=== PATIENT | male | born 1975 | race Two or more races ===

== ENCOUNTER 2022-02-13 12:22 | Outpatient (REF) | payer OTHER, SELFPAY ==
--- NOTE | 2022-02-13 16:51 | MHC.AU.HFU ---
Hearing Instrument Follow-Up- Binaural Date of Visit: 02/13/22 Right Ear: Meaghan Simmons V50-SP BTE, [id number] Repair Warranty: 07/09/2018 Loss and Damage Warranty: 07/09/2018 Battery Size: 13 Type of Mold: skeleton mold Dispensed By: [facility] Date of Fittin05/16/2016 Left Ear: Meaghan Simmons V50-SP BTE, [id number] Repair Warranty: 07/09/2018 Loss and Damage Warranty: 07/09/2018 Battery Size: 13 Type of Mold: skeleton mold Dispensed By: [facility] Date of Fittin05/16/2016 Follow-Up Summary: The patient is here for an updated hearing evaluation and hearing aid check. His last audiogram is from 2017. He is also eligible for new hearing aids. Today's audiogram reveals a significant change in hearing, with a new asymmetry (right ear worse). The patient also reports constant tinnitus in the right ear that has gotten worse over the past year. I have recommended that the patient obtains a referral to ENT from his PCP to be medically evaluated. Once he is evaluated and obtains medical clearance from the ENT, then he can set up a hearing aid consult appointment here for us to discuss new hearing aids. Patient is in agreement. I did re-program the patient's current hearing aids to today's audiogram with NAL-NL2 programming strategy. 100% target gain right aid. 110% target gain left aid- per patient preference. I re-ran the feedback digital strategy manager and reviewed use of volume control. I also re-tubed right and left ear molds as they were hardened. I counseled the patient to continue use of the left hearing aid, and explained realistically the right hearing aid will not provide useful speech information but perhaps some sound awareness. The patient did like hearing with both hearing aids in office. Diagnosis Code(s): Primary Diagnosis: H90.3 Bilateral Sensorineural Hearing Loss Signature: Provider: Kevin Arizmendi, [facility]
== END 2022-02-13 12:23 | disposition home or self-care (01) ==
LOC: HO.SH 12:22
PROVIDERS: Visit Provider Internal Medicine
DX: Z01.118 Encounter for examination of ears and hearing with other abnormal findings (principal); Z46.1 Encounter for fitting and adjustment of hearing aid; H90.3 Sensorineural hearing loss, bilateral
CPT/HCPCS: 92557; 92567; 92593; V5020; V5266

== ENCOUNTER 2022-02-13 14:22 | Outpatient (REF) | payer OTHER, SELFPAY ==
--- NOTE | ~2022-02-13 | XR_ITS ---
EXAMINATION: XR KNEES BILATERAL XR ANKLE, RIGHT CLINICAL INFORMATION: Pain. COMPARISON: Previous left knee x-ray September 2012. Right lower leg x-ray December 2014. TECHNIQUE: 4 views of each knee. 3 views of the right ankle. FINDINGS: Right knee: Bone alignment is normal. No fracture or dislocation. Normal joint spaces. No joint effusion. Left knee: Bone alignment is normal. No fracture or dislocation. Postsurgical changes from ACL repair. Small osteophytes at the patellofemoral joint. No joint effusion. Right ankle: Bone alignment is normal. No fracture or dislocation. Focal cortical thickening along the distal lateral tibial shaft. 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 The ankle mortise is normal. Soft tissues are normal. There is a small plantar calcaneal spur. XR/XR knee RT 4V IMPRESSION: Right knee: Unremarkable exam. Left knee: Post ACL repair changes. Mild arthritis at the patellofemoral joint. 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 Normal ankle joint.
--- NOTE | ~2022-02-13 | XR_ITS ---
EXAMINATION: XR KNEES BILATERAL XR ANKLE, RIGHT CLINICAL INFORMATION: Pain. COMPARISON: Previous left knee x-ray September 2012. Right lower leg x-ray December 2014. TECHNIQUE: 4 views of each knee. 3 views of the right ankle. FINDINGS: Right knee: Bone alignment is normal. No fracture or dislocation. Normal joint spaces. No joint effusion. Left knee: Bone alignment is normal. No fracture or dislocation. Postsurgical changes from ACL repair. Small osteophytes at the patellofemoral joint. No joint effusion. Right ankle: Bone alignment is normal. No fracture or dislocation. Focal cortical thickening along the distal lateral tibial shaft. 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 The ankle mortise is normal. Soft tissues are normal. There is a small plantar calcaneal spur. XR/XR knee LT 4V IMPRESSION: Right knee: Unremarkable exam. Left knee: Post ACL repair changes. Mild arthritis at the patellofemoral joint. 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 Normal ankle joint.
--- NOTE | ~2022-02-13 | XR_ITS ---
EXAMINATION: XR KNEES BILATERAL XR ANKLE, RIGHT CLINICAL INFORMATION: Pain. COMPARISON: Previous left knee x-ray September 2012. Right lower leg x-ray December 2014. TECHNIQUE: 4 views of each knee. 3 views of the right ankle. FINDINGS: Right knee: Bone alignment is normal. No fracture or dislocation. Normal joint spaces. No joint effusion. Left knee: Bone alignment is normal. No fracture or dislocation. Postsurgical changes from ACL repair. Small osteophytes at the patellofemoral joint. No joint effusion. Right ankle: Bone alignment is normal. No fracture or dislocation. Focal cortical thickening along the distal lateral tibial shaft. 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 The ankle mortise is normal. Soft tissues are normal. There is a small plantar calcaneal spur. XR/XR ankle RT min 3V IMPRESSION: Right knee: Unremarkable exam. Left knee: Post ACL repair changes. Mild arthritis at the patellofemoral joint. 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 Normal ankle joint.
[2022-02-13 14:42] LABS: MANUAL DIFF FLAG NO
[2022-02-13 15:12] LABS: Basophils Absolute Auto 0.1 X10*3/uL (0.0-0.2); Basophils Percent Auto 0.8 % (0-2); Eosinophils Absolute Auto 0.1 X10*3/uL (0.0-0.4); Eosinophils Percent Auto 1.8 % (0-4); Hematocrit 45.8 % (42.0-52.0); Hemoglobin 15.8 g/dl (14.0-18.0); Imm Gran Abs Auto 0.02 X10*3/uL (0.00-0.03); Imm Gran Pct Auto 0.3 % (0.0-0.4); Lymphocytes Absolute Auto 2.6 X10*3/uL (1.2-4.9); Lymphocytes Percent Auto 38.9 % (20-40); Mean Corpuscular HGB Conc 34.5 g/dl (31.0-36.0); Mean Corpuscular Hemoglobin 32.2 pg (27.0-33.0); Mean Corpuscular Volume 93.5 fL (80.0-98.0); Mean Platelet Volume 10.5 fL (9.4-12.4); Monocytes Absolute Auto 0.6 X10*3/uL (0.1-1.2); Monocytes Percent Auto 9.6 % (2-11); Neutrophils Absolute Auto 3.2 x10*3/uL (2.0-8.3); Neutrophils Percent Auto 48.6 % (45-73); Platelet Count 192 X10*3/uL (160-400); Red Cell Distribution Width 12.9 % (11.0-16.0); White Blood Count 6.7 X10*3/uL (4.8-10.8)
[2022-02-13 15:49] LABS: Erythrocyte Sedimentation Rate 7 MM/HR (0-15)
[2022-02-13 17:07] LABS: Alanine Aminotransferase 117 U/L (0-40); Albumin Level 4.4 g/dL (3.5-5.0); Alkaline Phosphatase 87 U/L (39-117); Anion Gap 13 (12-20); Aspartate Amino Transferase 68 U/L (5-37); Blood Urea Nitrogen 15 mg/dL (9-16); C Reactive Protein 0.35 mg/dL (< or = 0.50); Calcium 9.7 mg/dL (8.4-10.2); Carbon Dioxide 23 mmol/L (22-29); Chloride 106 mmol/L (96-108); Cholesterol 220 mg/dL; Estimated Glomerular Filt Rate > 60; Glucose Fasting 109 mg/dL (60-99); HDL Cholesterol 64 mg/dL; LDL Cholesterol Calculated 125 mg/dl; Potassium 4.2 mmol/L (3.3-5.1); Prostate Specific Antigen 0.42 ng/mL (<0.05-4.0); Sodium 138 mmol/L (135-145); TSH reflex Free T4 2.51 uIU/mL (0.32-4.0); Total Protein 7.5 g/dL (6.5-8.0); Triglycerides 158 mg/dL
[2022-02-13 17:11] LABS: Appearance Urine Clear; Color Urine Dark Yellow; Glucose Urine UA Negative (Negative); Leukocyte Esterase Urine Negative (Negative); Nitrite Urine Negative (Negative); Specific Gravity - Urine >= 1.030 (1.005-1.025); Urine Blood Negative (Negative); Urine Ketones Trace mg/dL (Negative); Urine Protein Trace mg/dL (Neg-Trace)
== END 2022-02-13 14:23 | disposition home or self-care (01) ==
LOC: HO.XRAY 14:22
PROVIDERS: PCP Internal Medicine; Visit Provider Internal Medicine
DX: Z01.818 Encounter for other preprocedural examination (principal); Z12.5 Encounter for screening for malignant neoplasm of prostate; M25.571 Pain in right ankle and joints of right foot; S83.512S Sprain of anterior cruciate ligament of left knee, sequela; S83.207S Unspecified tear of unspecified meniscus, current injury, left knee, sequela; M25.561 Pain in right knee; R30.0 Dysuria; R35.0 Frequency of micturition; E66.01 Morbid (severe) obesity due to excess calories; Z68.42 Body mass index [BMI] 45.0-49.9, adult; I10 Essential (primary) hypertension; E55.9 Vitamin D deficiency, unspecified
CPT/HCPCS: 36415; 73564; 73610; 80053; 80061; 81003; 82306; 84153; 84443; 85025; 85652; 86140; 99202

== ENCOUNTER 2022-06-27 15:22 | Outpatient (REF) | payer OTHER, SELFPAY ==
[2022-06-27 15:43] LABS: MANUAL DIFF FLAG NO
[2022-06-27 16:27] LABS: Basophils Percent Auto 0.7 % (0-2); Eosinophils Absolute Auto 0.1 X10*3/uL (0.0-0.4); Eosinophils Percent Auto 1.4 % (0-4); Hematocrit 46.2 % (42.0-52.0); Hemoglobin 16.3 g/dl (14.0-18.0); Imm Gran Abs Auto 0.03 X10*3/uL (0.00-0.03); Imm Gran Pct Auto 0.5 % (0.0-0.4); Lymphocytes Absolute Auto 1.7 X10*3/uL (1.2-4.9); Lymphocytes Percent Auto 30.8 % (20-40); Mean Corpuscular HGB Conc 35.3 g/dl (31.0-36.0); Mean Corpuscular Hemoglobin 33.7 pg (27.0-33.0); Mean Corpuscular Volume 95.7 fL (80.0-98.0); Mean Platelet Volume 10.8 fL (9.4-12.4); Monocytes Absolute Auto 0.5 X10*3/uL (0.1-1.2); Monocytes Percent Auto 8.6 % (2-11); Neutrophils Absolute Auto 3.2 x10*3/uL (2.0-8.3); Platelet Count 198 X10*3/uL (160-400); Red Blood Count 4.83 X10*6/uL (4.60-5.80); Red Cell Distribution Width 12.4 % (11.0-16.0); White Blood Count 5.6 X10*3/uL (4.8-10.8)
[2022-06-27 16:34] LABS: Estimated Average Glucose 128 mg/dL; Hemoglobin A1c % 6.1 %
[2022-06-27 16:46] LABS: Alanine Aminotransferase 90 U/L (0-40); Albumin Level 4.3 g/dL (3.5-5.0); Alkaline Phosphatase 79 U/L (39-117); Anion Gap 13 (12-20); Aspartate Amino Transferase 48 U/L (5-37); Bilirubin Total 0.8 mg/dL (0.0-1.0); Blood Urea Nitrogen 15 mg/dL (9-16); Calcium 9.6 mg/dL (8.4-10.2); Carbon Dioxide 25 mmol/L (22-29); Chloride 105 mmol/L (96-108); Cholesterol 243 mg/dL; Estimated Glomerular Filt Rate > 60; Glucose Fasting 138 mg/dL (60-99); HDL Cholesterol 60 mg/dL; LDL Cholesterol Calculated 160 mg/dl; Potassium 4.4 mmol/L (3.3-5.1); Sodium 139 mmol/L (135-145); Total Protein 7.2 g/dL (6.5-8.0); Triglycerides 118 mg/dL
[2022-06-27 16:57] LABS: Appearance Urine Clear; Color Urine Dark Yellow; Glucose Urine UA Negative (Negative); Leukocyte Esterase Urine Negative (Negative); Nitrite Urine Negative (Negative); Specific Gravity - Urine >= 1.030 (1.005-1.025); Urine Blood Negative (Negative); Urine Ketones Trace mg/dL (Negative); Urine Protein Negative (Neg-Trace)
[2022-06-27 17:03] LABS: TSH reflex Free T4 1.07 uIU/mL (0.32-4.0); Vitamin D 25-OH Total 26.1 ng/mL (>30)
== END 2022-06-27 15:23 | disposition home or self-care (01) ==
LOC: HO.LAB 15:22
PROVIDERS: PCP Internal Medicine; Visit Provider Internal Medicine
DX: E55.9 Vitamin D deficiency, unspecified (principal); M67.432 Ganglion, left wrist; E78.00 Pure hypercholesterolemia, unspecified; R73.01 Impaired fasting glucose; R30.0 Dysuria; I10 Essential (primary) hypertension
CPT/HCPCS: 36415; 80053; 80061; 81003; 82306; 83036; 84443; 85025

== ENCOUNTER 2022-10-22 09:05 | Day surgery (SDC) | payer OTHER, SELFPAY ==
[2022-10-20 14:03] VITALS: BMI 44.7
--- NOTE | 2022-10-21 10:48 | HO.ANESPROP2 ---
Documented by User: Larissa Lewis NP 10/21/22 10:49 HPI - Anesthesia Eval Consult details Narrative: 47yo M for Colonoscopy PMF Active Problems Active Problems: All Active Problems Tinnitus of right ear (Acute) Asymmetrical hearing loss (Acute) Mixed hyperlipidemia (Acute) GERD without esophagitis (Acute) Elevated LFTs (Acute) Vitamin D deficiency (Acute) Impaired fasting glucose (Acute) Colon cancer screening (Acute) Encounter for screening colonoscopy (Acute) Ganglion cyst of volar aspect of left wrist (Acute) Right knee pain (Acute) Right ankle pain (Acute) Benign essential hypertension (Acute) Tears of meniscus and ACL of left knee (Acute) Hearing loss, bilateral (Acute) Elevated blood pressure reading without diagnosis of hypertension (Acute) Annual physical exam (Acute) Morbid obesity with BMI of 45.0-49.9, adult (Acute) Smoker (Acute) Past Medical History Medical History Benign essential hypertension Elevated LFTs GERD without esophagitis Hearing loss, bilateral Impaired fasting glucose Mixed hyperlipidemia Morbid obesity with BMI of 45.0-49.9, adult Smoker Tinnitus Vitamin D deficiency Family History Family History Father Epilepsy Heart attack High blood pressure Mother Diabetes Stroke Surgical History Surgical History History of knee surgery (~03/2013) Social History Social History Housing: Apartment Alcohol intake: current Alcohol intake frequency: holidays/special occasions only Patient Tobacco Use Status: Current everyday Tobacco user Cigarettes Per Day: 15 e-Cigarette/Vaping Use: Never Used Second Hand Smoke Exposure: Yes Are you DNR?: No Advance Directives: No Advance Directives Information Provided: Yes service: No Current occupational status: unemployed Cognitive needs: No Hearing needs: Yes Vision needs: Yes Meds Allergies Allergy/AdvReac Type Severity Reaction Status Date / Time No Known Allergies Allergy Verified 07/02/22 14:26 [No Known Allergies*] Exam Exam Date and Time: October 21, 2022 1048 Height,Weight and Vital Signs: Height 5 ft 8 in Weight 133.356 kg Assessment and Plan Assessment Anesthesia Assessment: Chart Reviewed Documented by User: Eden Cabezas MD 10/22/22 10:38 PMFSH Active Problems Active Problems: All Active Problems Tinnitus of right ear (Acute) Asymmetrical hearing loss (Acute) Mixed hyperlipidemia (Acute) GERD without esophagitis (Acute) Elevated LFTs (Acute) Vitamin D deficiency (Acute) Impaired fasting glucose (Acute) Colon cancer screening (Acute) Encounter for screening colonoscopy (Acute) Ganglion cyst of volar aspect of left wrist (Acute) Right knee pain (Acute) Right ankle pain (Acute) Benign essential hypertension (Acute) Tears of meniscus and ACL of left knee (Acute) Hearing loss, bilateral (Acute) Elevated blood pressure reading without diagnosis of hypertension (Acute) Annual physical exam (Acute) Morbid obesity with BMI of 45.0-49.9, adult (Acute) Smoker (Acute) Denies ANDREW but never tested Past Medical History Medical History Benign essential hypertension Elevated LFTs GERD without esophagitis Hearing loss, bilateral Impaired fasting glucose Mixed hyperlipidemia Morbid obesity with BMI of 45.0-49.9, adult Smoker Tinnitus Vitamin D deficiency Family History Family History Father Epilepsy Heart attack High blood pressure Mother Diabetes Stroke Family history of problems with anesthesia: No Surgical History Surgical History History of knee surgery (~03/2013) History of Problems with Anesthesia: No Social History Social History Housing: Apartment Alcohol intake: current Alcohol intake frequency: holidays/special occasions only Patient Tobacco Use Status: Current everyday Tobacco user Cigarettes Per Day: 15 e-Cigarette/Vaping Use: Never Used Second Hand Smoke Exposure: Yes Are you DNR?: No Advance Directives: No Advance Directives Information Provided: Yes service: No Current occupational status: unemployed Cognitive needs: No Hearing needs: Yes Vision needs: Yes Meds Allergies Allergy/AdvReac Type Severity Reaction Status Date / Time No Known Allergies Allergy Verified 07/02/22 14:26 [No Known Allergies*] Exam Height,Weight and Vital Signs: Height 5 ft 8 in Weight 133.356 kg Vital Signs Temp Pulse Resp BP Pulse Ox O2 Del Method 10/22/22 10:19 93 16 10/22/22 09:47 98.3 F 87 20 140/88 H 98 Room Air Airway Mallampati Class: II Neck ROM: Full Loose/Missing/Broken Teeth: Yes (Missing many, top. Denies broken or loose teeth) Heart: RRR Lungs: CTAB Assessment and Plan Assessment Anesthesia Assessment: Anesthesia Plan Discussed Final Anesthetic Review Family History of Problems with Anesthesia: No History of Problems with Anesthesia: No NPO: Yes ASA Class: III Final Preanesthetic Review: No Changes in Pt Med Stat, Meds/Allgs Chart Reviewed, Consent Obtained/Reviewed and Anes Risks/Benef Reviewed Patient Risk: Intermediate Procedure Risk: Low Assessment/Block/Sedation in SS: Assess/Block/Sedation-SS Anesthetic Plan Anesthetic Plan: MAC: Disposition: Standard PACU
[2022-10-22 09:47] VITALS: BP 140/88; PULSE 87; RESP 20; TEMP 36.8; O2SAT 98
--- NOTE | 2022-10-22 09:47 | PC.NURSE ---
PT SMOKE THIS AM AT 0830 AND LAST SMOKE MARIJUANA 1 WEEK AGO
[2022-10-22] MEDS: Lactated Ringers 1,000 ML 100 ML IVCONT (10:00)
--- NOTE | 2022-10-22 10:10 | MHC.SHP ---
Pre-Procedural Eval Section A Date of Service: 10/22/22 Section B Chief Complaint: Encounter for screening for malignant neoplasm Relevant Family History (Specify if Yes): No Relevant Social History: Tobacco Use Present Medications: see Short Stay Collaborative assessment Medical History: Significant History (Benign essential hypertension Elevated LFTs GERD without esophagitis Hearing loss, bilateral Impaired fasting glucose Mixed hyperlipidemia Morbid obesity with BMI of 45.0-49.9, adult Smoker Vitamin D deficiency) History of Previous Operations: Relevant previous surgery/procedure and date(s) (History of knee surgery (~03/2013)) Allergies: Allergies Allergy/AdvReac Type Severity Reaction Status Date / Time No Known Allergies Allergy Verified 07/02/22 14:26 [No Known Allergies*] Review of Systems Sugical H&P ROS: Negative: Constitution, Cardiovascular, Respiratory, Neurological, Psychiatric, Hem-Onc, Allergic/Immunologic, Gastrointestinal, Genitourinary, Musculoskeletal, Integumentary, Endocrine and Eyes/Ears/Nose/Throat Exam Surgical H&P Exam: Normal: HEENT, Normal: Heart, Normal: Lungs, Normal: Extremities, Normal: Abdomen, Normal: Skin and Normal: Neurological Plan Diagnosis/Plan: Unchanged I have reviewed the history and physical and performed a pertinent physical examination on my patient. No changes have occurred unless specified. Time Spent With Patient Time: Total time managing care of this patient today ____ minutes.
--- NOTE | 2022-10-22 10:12 | W.PM.OPN ---
Operative Note Operative Note Date of Service: 10/22/22 Narrative: Operative Information Procedure Description: Colonoscopy Indication: screening Anesthesia: MAC COLONOSCOPY Instrument: Olympus variable stiffness ADULT scope 190L Colonoscopy Monitoring: Vital signs and clinical assessment, continuous EKG monitoring, Pulse oximetry, Carbon Dioxide monitoring and blood pressure monitoring were done throughout the procedure. Colon withdrawal time was 60 minutes. Procedure: The patient was placed in the left lateral decubitis position and pre-procedure medications were administered. After a digital rectal examination of the ano-rectum, the video colonoscope was inserted into the rectum and advanced through the colon to the cecum/TI. The colonoscope was slowly withdrawn in a retrograde panoramic fashion and the colon mucosa was carefully examined including a retroflexed view of the rectum. Findings and interventions are described below. Procedure Difficulty: moderate Findings: Terminal Ileum-normal Cecum:normal Ascending Colon: 12 mm pedunculated polyp noted, stalk base injected with epinephrine and removed with cold snare with 3 clips applied for hemostasis Transverse Colon - 12-14 mm pedunculated polyp noted, stalk base injected with epinephrine and removed with cold snare with 1 clip applied for hemostasis--retrieved with net Descending Colon: x 1 sessile polyp 8-10 mm removed with cold snare, x 1 pedunculated polyp 14 mm removed with hot snare after base injected with 1 cc of epinephrine, with one clip applied for hemostasis Sigmoid Colon: normal Rectum: Retroflexion with small internal hemorrhoids, grade I, x 2 sessile polyps 7-8 mm removed with cold snare Anorectum - normal Colon preparation: [place] Bowel Preparation Scale Right colon; 2 Transverse colon: 2 Left colon; 2 (0 = Unprepared colon segment with mucosa not seen due to solid stool that cannot be cleared. 1 = Portion of mucosa of the colon segment seen, but other areas of the colon segment not well seen due to staining, residual stool and/or opaque liquid. 2 = Minor amount of residual staining, small fragments of stool and/or opaque liquid, but mucosa of colon segment seen well. 3 = Entire mucosa of colon segment seen well with no residual staining, small fragments of stool or opaque liquid) Impression and Post Procedure Diagnosis: polyps internal hemorrhoids Plan: High fiber diet leaflet Avoid straining at stool, epsom salts and sitz bath, anusol supps or cream Repeat Colonoscopy in 6-8 months or earlier if clinically indicated Above findings were reviewed with the patient and relevant handouts were provided if indicated.
[2022-10-22] MEDS: Albuterol Sulfate (0.083%) 2.5 MG/3 ML VIAL.NEB INHALE (10:17)
[2022-10-22 10:19] VITALS: PULSE 93; RESP 16; O2SAT 97
[2022-10-22 11:57] VITALS: BP 133/99; PULSE 103; RESP 20; TEMP 36.6; O2SAT 98
[2022-10-22 12:12] VITALS: BP 123/82; PULSE 85; RESP 20; TEMP 36.6; O2SAT 96
== END 2022-10-22 13:00 | disposition home or self-care (01) ==
PROVIDERS: PCP Internal Medicine; Visit Provider Internal Medicine Gastroenterology
PROC: 0DJD8ZZ Inspection of Lower Intestinal Tract, Via Natural or Artificial Opening Endoscopic (ICD-10-PCS; CPT 45378; principal; 2022-10-22 11:10)
DX: Z12.11 Encounter for screening for malignant neoplasm of colon (principal); Z86.010 Personal history of colon polyps; D12.2 Benign neoplasm of ascending colon; D12.3 Benign neoplasm of transverse colon; D12.4 Benign neoplasm of descending colon; K64.0 First degree hemorrhoids; K21.9 Gastro-esophageal reflux disease without esophagitis; I10 Essential (primary) hypertension; E78.2 Mixed hyperlipidemia; R79.89 Other specified abnormal findings of blood chemistry; R73.01 Impaired fasting glucose; E66.01 Morbid (severe) obesity due to excess calories; Z68.42 Body mass index [BMI] 45.0-49.9, adult; Z79.899 Other long term (current) drug therapy; F17.210 Nicotine dependence, cigarettes, uncomplicated
CPT/HCPCS: 45385; 45381; 88305; 94640; J0171

== ENCOUNTER → 2022-10-22 09:05 | Outpatient (BNV) | payer OTHER, SELFPAY | PROVIDERS: PCP Internal Medicine; Visit Provider Internal Medicine Gastroenterology | DX: Z12.11 Encounter for screening for malignant neoplasm of colon (principal); D12.2 Benign neoplasm of ascending colon; D12.3 Benign neoplasm of transverse colon; D12.4 Benign neoplasm of descending colon; D12.8 Benign neoplasm of rectum; K64.8 Other hemorrhoids | CPT/HCPCS: 45381; 45385 ==

== ENCOUNTER 2022-10-28 07:57 | Outpatient (REF) | payer OTHER, SELFPAY ==
[2022-10-28 08:17] LABS: MANUAL DIFF FLAG NO
[2022-10-28 08:49] LABS: Basophils Percent Auto 0.5 % (0-2); Eosinophils Absolute Auto 0.2 X10*3/uL (0.0-0.4); Eosinophils Percent Auto 2.7 % (0-4); Hematocrit 45.6 % (42.0-52.0); Hemoglobin 15.8 g/dl (14.0-18.0); Imm Gran Abs Auto 0.02 X10*3/uL (0.00-0.03); Imm Gran Pct Auto 0.4 % (0.0-0.4); Lymphocytes Percent Auto 36.4 % (20-40); Mean Corpuscular HGB Conc 34.6 g/dl (31.0-36.0); Mean Corpuscular Volume 95.2 fL (80.0-98.0); Mean Platelet Volume 10.2 fL (9.4-12.4); Monocytes Absolute Auto 0.5 X10*3/uL (0.1-1.2); Monocytes Percent Auto 9.6 % (2-11); Neutrophils Absolute Auto 2.8 x10*3/uL (2.0-8.3); Neutrophils Percent Auto 50.4 % (45-73); Platelet Count 193 X10*3/uL (160-400); Red Blood Count 4.79 X10*6/uL (4.60-5.80); Red Cell Distribution Width 12.5 % (11.0-16.0); White Blood Count 5.6 X10*3/uL (4.8-10.8)
[2022-10-28 09:00] LABS: Estimated Average Glucose 117 mg/dL; Hemoglobin A1c % 5.7 % (<6.0)
[2022-10-28 09:18] LABS: Alanine Aminotransferase 95 U/L (0-40); Albumin Level 4.2 g/dL (3.5-5.0); Alkaline Phosphatase 69 U/L (39-117); Anion Gap 12 (12-20); Aspartate Amino Transferase 58 U/L (5-37); Bilirubin Total 0.6 mg/dL (0.0-1.0); Blood Urea Nitrogen 11 mg/dL (9-16); Carbon Dioxide 25 mmol/L (22-29); Chloride 105 mmol/L (96-108); Estimated Glomerular Filt Rate > 60; Glucose Fasting 103 mg/dL (60-99); Potassium 4.3 mmol/L (3.3-5.1); Sodium 138 mmol/L (135-145); Total Protein 7.5 g/dL (6.5-8.0)
[2022-10-28 09:37] LABS: Vitamin D 25-OH Total 29.6 ng/mL (>30)
[2022-10-28 09:38] LABS: Appearance Urine Clear; Color Urine Dark Yellow; Glucose Urine UA Negative (Negative); Leukocyte Esterase Urine Negative (Negative); Nitrite Urine Negative (Negative); PH 5.5 (5.0-9.0); Specific Gravity - Urine 1.025 (1.005-1.025); Urine Blood Negative (Negative); Urine Ketones Trace mg/dL (Negative); Urine Protein Negative (Neg-Trace)
[2022-10-28 10:45] LABS: Creatinine Urine 327.12 mg/dL; Microalbum/Creatinine Ratio Ur 2.4 ug/mg cr (<30)
== END 2022-10-28 07:58 | disposition home or self-care (01) ==
LOC: HO.LAB 07:57
PROVIDERS: PCP Internal Medicine; Visit Provider Internal Medicine
DX: E78.00 Pure hypercholesterolemia, unspecified (principal); E55.9 Vitamin D deficiency, unspecified; E11.9 Type 2 diabetes mellitus without complications; R30.0 Dysuria; I10 Essential (primary) hypertension
CPT/HCPCS: 36415; 80053; 81003; 82043; 82306; 83036; 84443; 85025

== ENCOUNTER 2022-11-03 13:30 | Outpatient (AMB) | payer OTHER, SELFPAY ==
--- NOTE | 2022-11-03 13:38 | A.OFFVIS_ITS ---
Intake Vital Signs 11/03/22 13:39 Height 5 ft 8 in Weight 286 lb BMI 43.5 BP 150/94 H Blood Pressure Location Lt brachial Position Sitting Pulse 74 Intake Visit Reasons: S/p colon- Higgins Intake Note: Patient follow up for Colonoscopy results. Patient denies any GI issues. Decorator Street And Building Required: No Accompanied by: Self / Same As Patient Allergies No Known Allergies [No Known Allergies*] Allergy (Verified 11/03/22 13:38) Medication List - Last Reconciled 11/03/22 by Ryann Butts PA-C cholecalciferol (vitamin D3) 50 mcg PO DAILY 90 days famotidine 20 mg PO BEDTIME PRN 90 days lisinopril 5 mg PO DAILY 90 days HPI HPI Comments History of Present Illness Details A 47 y/o male follows up after index screening colon with polypectomy- He has no complaints- [facility] Medical History (Updated 11/03/22 @ 14:04 by Ryann Butts PA-C) Benign essential hypertension Elevated LFTs GERD without esophagitis Hearing loss, bilateral Impaired fasting glucose Mixed hyperlipidemia Morbid obesity with BMI of 45.0-49.9, adult Smoker Tinnitus Vitamin D deficiency Surgical History History of knee surgery (~03/2013) Hx of colonoscopy Family History Father Epilepsy Heart attack High blood pressure Mother Diabetes Stroke Social History Housing: Apartment Alcohol intake: current Alcohol intake frequency: holidays/special occasions only Patient Tobacco Use Status: Current everyday Tobacco user Cigarettes Per Day: 15 e-Cigarette/Vaping Use: Never Used Second Hand Smoke Exposure: Yes service: No Current occupational status: unemployed Cognitive needs: No Hearing needs: Yes Vision needs: Yes Review of Systems Const All systems reviewed & are unremarkable except as noted in HPI and below Card Denies chest pain and Denies dyspnea Resp Denies dyspnea GI Denies abdominal pain, Denies change in bowel habits, Denies nausea and Denies vomiting Physical Exam Vital Signs: Last Vital Signs Pulse 74 11/03/22 13:39 BP 150/94 H 11/03/22 13:39 BMI result Body Mass Index 43.5 Const General: cooperative, healthy appearing, comfortable and no acute distress Orientation/consciousness: patient oriented x3 Resp Effort & Inspection: normal respiratory effort and able to speak in complete sentences Neuro General: patient oriented x3 Psych Appearance: grossly normal Mental Status: mental status grossly normal Speech and movement: Normal speech and movement present Affect: normal affect Attitude: cooperative Thought process: Normal thought process present Thought content: Normal thought content present Insight: Good insight present (Psych) Judgement: Good judgement present (Psych) Results Reviewed Results Reviewed: Findings: Terminal Ileum-normal Cecum:normal Ascending Colon: 12 mm pedunculated polyp noted, stalk base injected with epinephrine and removed with cold snare with 3 clips applied for hemostasis Transverse Colon - 12-14 mm pedunculated polyp noted, stalk base injected with epinephrine and removed with cold snare with 1 clip applied for hemostasis--retrieved with net Descending Colon: x 1 sessile polyp 8-10 mm removed with cold snare, x 1 pedunculated polyp 14 mm removed with hot snare after base injected with 1 cc of epinephrine, with one clip applied for hemostasis Sigmoid Colon:? normal Rectum: Retroflexion with small internal hemorrhoids, grade I, x 2 sessile polyps 7-8 mm removed with cold snare Anorectum - normal Colon preparation: [place] Bowel Preparation Scale Right colon; 2 Transverse colon: 2 Left colon; 2 (0 = Unprepared colon segment with mucosa not seen due to solid stool that cannot be cleared. 1 = Portion of mucosa of the colon segment seen, but other areas of the colon segment not well seen due to staining, residual stool and/or opaque liquid. 2 = Minor amount of residual staining, small fragments of stool and/or opaque liquid, but mucosa of colon segment seen well. 3 = Entire mucosa of colon segment seen well with no residual staining, small fragments of stool or opaque liquid) Impression and Post Procedure Diagnosis: polyps internal hemorrhoids Plan: High fiber diet leaflet Avoid straining at stool, epsom salts and sitz bath, anusol supps or cream Repeat Colonoscopy in 6-8 months or earlier if clinically indicated Above findings were reviewed with the patient and relevant handouts were provided if indicated. Name:AshleighGray Age/Sex: 47/M Attending: Monique Higgins MD : 1975 Submitted by: Monique Higgins MD Copies to: Marty Luna MD MR #: [id number] ? Status: [facility] [place] Collected: 10/22/22 Location: [facility] Received: 10/22/22 Diagnosis A.? Colon, ascending, polyp:? Tubulovillous adenoma with serrated features (multiple pieces, cannot evaluate margin); negative for high-grade dysplasia and carcinoma. B.? Colon, transverse, polyps:? Tubulovillous adenomas with serrated features (2 pieces, cannot evaluate margins); negative for high-grade dysplasia and carcinoma. C.? Colon, descending, polyps:? Tubular adenoma/s with serrated features (2 pieces) and tubulovillous adenoma with serrated features, likely excised; negative for high-grade dysplasia and carcinoma. Assessment & Plan Assessment & Plan (1) Pedunculated colonic polyp: Code(s): K63.5 - Polyp of colon (2) Sessile colonic polyp: Code(s): K63.5 - Polyp of colon (3) Tubulovillous adenoma: Comment: AFDR- screen by 38-40 Code(s): D36.9 - Benign neoplasm, unspecified site Plan repeat colonoscopy 6-8 mos-APRIL 2023- Dr HIGGINS Will send prep MG when he is scheduled- Orders: Orders Colonoscopy - GI Use Only 5 Months D36.9 - Benign neoplasm, unspecified site, K63.5 - Polyp of colon Patient Instructions: repeat colonoscopy April 2023- Dr. Higgins High fiber diet leaflet Avoid straining at stool, epsom salts and sitz bath, anusol supps or cream Repeat Colonoscopy in 6-8 months or earlier if clinically indicated AFDR- begin screen by 38-40 Coding Level of Care Code Est Pt Level 3 (81337) Diagnoses Pedunculated colonic polyp K63.5 Sessile colonic polyp K63.5 Tubulovillous adenoma D36.9 Time Spent (min) 25
[2022-11-03 13:39] VITALS: BP 150/94; PULSE 74; BMI 43.5
== END 2022-11-03 16:19 | disposition home or self-care (01) ==
PROVIDERS: PCP Internal Medicine; Visit Provider Physician Assistant
DX: K63.5 Polyp of colon (principal); D36.9 Benign neoplasm, unspecified site
CPT/HCPCS: 99213

== ENCOUNTER → 2022-11-03 13:30 | Outpatient (BNVA) | payer OTHER, SELFPAY | PROVIDERS: PCP Internal Medicine; Visit Provider Physician Assistant | DX: K63.5 Polyp of colon (principal); D36.9 Benign neoplasm, unspecified site | CPT/HCPCS: 99212 ==

== ENCOUNTER 2022-11-03 14:19 | Outpatient (REF) | payer OTHER, SELFPAY | END 2022-11-03 14:20 | disposition home or self-care (01) | LOC: HO.HAP 14:19 | PROVIDERS: Visit Provider Internal Medicine | DX: Z46.1 Encounter for fitting and adjustment of hearing aid (principal); H90.3 Sensorineural hearing loss, bilateral | CPT/HCPCS: V5266 ==

== ENCOUNTER 2022-11-03 14:31 | Outpatient (AMB) | payer OTHER, SELFPAY ==
[2022-11-03 14:41] VITALS: BP 130/84; PULSE 93; O2SAT 97; BMI 43.2
--- NOTE | 2022-11-03 14:41 | A.OFFPC_ITS ---
Vital Signs 11/03/22 14:41 Height 5 ft 8 in Weight 284 lb 4 oz BMI 43.2 BP 130/84 Blood Pressure Location Lt brachial Position Sitting Pulse 93 Pulse Source Pulse Oximeter Pulse Oximetry (%) 97 Oxygen Delivery Method Room Air Intake Visit Reasons: HTN, IFG, hyperlipidemia Acid Loader Required: No Accompanied by: Self / Same As Patient Allergies No Known Allergies [No Known Allergies*] Allergy (Verified 11/03/22 15:06) Medication List - Last Reconciled 11/03/22 by Marty Luna MD cholecalciferol (vitamin D3) 50 mcg PO DAILY 90 days famotidine 20 mg PO BEDTIME PRN 90 days lisinopril 5 mg PO DAILY 90 days Tobacco use date assessed: 11/03/22 Dental Screening Dental Screen Date: 11/03/22 Did you have a dental visit in the last 12 months?: No Did you have a dental problem in the last 6 months where you did not have access to dental care?: No Was dental information given to patient?: No HPI HTN, IFG, hyperlipidemia HPI Details Patient comes in today for his follow up visit States that he feels okay He denies any headaches or dizziness Denies any chest pains, no shortness of breath No nausea/vomiting, no abdominal pain No change in bowel habits noted Had his follow-up labs done last week - to discuss his results [facility] Medical History Benign essential hypertension Elevated LFTs GERD without esophagitis Hearing loss, bilateral Impaired fasting glucose Mixed hyperlipidemia Morbid obesity with BMI of 45.0-49.9, adult Smoker Tinnitus Vitamin D deficiency Surgical History History of knee surgery (~03/2013) Hx of colonoscopy Family History Father Epilepsy Heart attack High blood pressure Mother Diabetes Stroke Social History Housing: Apartment Alcohol intake: current Alcohol intake frequency: holidays/special occasions only Patient Tobacco Use Status: Current everyday Tobacco user Cigarettes Per Day: 15 e-Cigarette/Vaping Use: Never Used Second Hand Smoke Exposure: Yes service: No Current occupational status: unemployed Cognitive needs: No Hearing needs: Yes Vision needs: Yes Questionnaire PHQ-9 Over the last 2 weeks, how often have you been bothered by any of the following problems? 1. Little interest or pleasure in doing things: not at all 2. Feeling down, depressed, or hopeless: not at all 3. Trouble falling or staying asleep, or sleeping too much: not at all 4. Feeling tired or having little energy: not at all 5. Poor appetite or overeating: not at all 6. Feeling bad about yourself - or that you are a failure or have let yourself or your family down: not at all 7. Trouble concentrating on things, such as reading the newspaper or watching television: not at all 8. Moving or speaking so slowly that other people could have noticed. Or the opposite - being so fidgety or restless that you have been moving around a lot more than usual: not at all 9. Thoughts that you would be better off or of hurting yourself in some way: not at all Total score: 0 Depression Screening Interpretation: Negative 95826 - PHQ-9 Billing: Yes Source: Developed by Drs. Jersey Tellez, Lis Andrew, Wm Zhang and colleagues, with an educational viktor from [employer]. Thrive Questionnaire Date Thrive assessed: 11/03/22 I am a: Patient What is your living situation today?: I have a place to live, but I am worried about losing it in the future Within the past 12 months, did the food you bought not last and you didn't have the money to get more?: Never true Within the past 12 months, did you worry whether your food would run out before you got money to buy more?: Never true Do you have trouble paying for medicines?: No Do you have trouble getting transportation to medical appointments?: No Do you have trouble paying your heating and electricity bill?: No Do you have trouble taking care of your child, family member or friend?: No Do you have trouble with day-to-day activities such as bathing, preparing meals, shopping, managing finances, etc.?: No Are you currently unemployed and looking for a job?: No Are you interested in more education?: No Please select the resources that you would like help with: None Currently or been in a relationship where the following occur: no concerns reported AUDIT C Alcohol Use Questionnaire (AUDIT-C) 1. How often do you have a drink containing alcohol?: 2-3 times a week 2. How many drinks containing alcohol do you have on a typical day when you are drinking?: 1 or 2 3. How often do you have six or more drinks on one occasion?: Never Total Score: 3 Score Reviewed/Action Taken: Yes SANDEEP-7 AMB Questionnaire SANDEEP-7 Date SANDEEP - 7 assessed: 11/03/22 Feeling nervous, anxious, or on edge: 0 = Not at all Not being able to stop or control worryin = Not at all Worrying too much about different things: 0 = Not at all Trouble relaxin = Not at all Being so restless that it is hard to sit still: 0 = Not at all Becoming easily annoyed or irritable: 0 = Not at all Feeling afraid as if something awful might happen: 0 = Not at all Total SANDEEP-7 score (0-4 normal; 5-9 mild; 10-14 moderate; 15-21 severe): 0 Source: Developed by Drs. Jersey Tellez, Lis Andrew, Wm Zhang and colleagues, with an educational viktor from [employer]. Review of Systems Const Denies chills, Denies fatigue, Denies fever(s) and Denies headache(s) ENT Denies dysphagia, Denies dizziness, Denies otalgia, Denies headache(s), Denies neck pain, Denies odynophagia and Denies sore throat Card Denies chest pain, Denies palpitations and Denies dyspnea Resp Denies cough and Denies dyspnea GI Denies abdominal pain, Denies constipation, Denies dysphagia, Denies heartburn, Denies diarrhea, Denies nausea, Denies odynophagia and Denies vomiting Denies dysuria, Denies nocturia and Denies urinary frequency Musc Denies neck pain Neuro Denies dizziness and Denies headache(s) Endo Denies fatigue and Denies palpitations Physical exam (Primary Care) Vital Signs: Last Vital Signs Pulse 93 11/03/22 14:41 BP 130/84 11/03/22 14:41 Pulse Ox 97 11/03/22 14:41 Oxygen Delivery Method Room Air 11/03/22 14:41 BMI result Body Mass Index 43.2 Tobacco/Smoking Status: Tobacco use Status Tobacco use date assessed 11/03/22 11/03/22 14:53 Patient Tobacco Use Status Current everyday Tobacco 11/03/22 14:53 e-Cigarette/Vaping Use Never Used 11/03/22 14:53 PHQ-9: PHQ-9 Score PHQ-9: Total score 0 11/03/22 15:10 Depression Screening Interpretation: Negative Thrive Assessment: Date of Thrive Assessment Date Thrive assessed 11/03/22 11/03/22 14:53 Currently or been in a relationship where the following occur: no concerns reported Const General: no acute distress and alert HENMT Ears: TM's normal bilaterally and EAC's normal Throat: Yes posterior oropharynx normal and Yes tonsils normal (no TP congestion) Neck Neck: Yes no lymphadenopathy and Yes supple Resp Auscultation: clear to auscultation bilaterally, no rales and no wheezes Cardio Rate: regular rate Rhythm: regular rhythm Heart sounds: no murmurs GI Palpation (GI): Soft to palpation and nontender Auscultation: normal bowel sounds Extrem General: Yes no clubbing, cyanosis or edema Right lower extremity: knee Details: tenderness Location: of the pre-patellar area; no swelling and ankle Details: tenderness; no swelling Left lower extremity: knee Details: tenderness; no swelling Results Reviewed Results Reviewed: Laboratory Tests 02/13/22 06/27/22 10/28/22 14:40 15:40 08:13 WBC Hgb Hct Plt Count Sodium Potassium Creatinine Estimated GFR Fasting Glucose Hemoglobin A1c % Calcium AST ALT Triglycerides 118 Cholesterol 220 243 LDL Cholesterol, Calc 125 160 HDL Cholesterol 60 25-OH Vitamin D Total TSH Ur Specific [place] 1.025 Urine Protein Negative Urine Glucose (UA) Negative Urine Blood Negative Microalb/Creat Ratio 10/28/22 10/28/22 10/28/22 08:13 08:16 08:16 WBC 5.6 Hgb 15.8 Hct 45.6 Plt Count 193 Sodium 138 Potassium 4.3 Creatinine 0.88 Estimated GFR > 60 Fasting Glucose 103 H Hemoglobin A1c % Calcium 10.0 AST 58 H ALT 95 H Triglycerides Cholesterol LDL Cholesterol, Calc HDL Cholesterol 25-OH Vitamin D Total 29.6 TSH 2.50 Ur Specific [place] Urine Protein Urine Glucose (UA) Urine Blood Microalb/Creat Ratio 2.4 10/28/22 08:16 WBC Hgb Hct Plt Count Sodium Potassium Creatinine Estimated GFR Fasting Glucose Hemoglobin A1c % 5.7 Calcium AST ALT Triglycerides Cholesterol LDL Cholesterol, Calc HDL Cholesterol 25-OH Vitamin D Total TSH Ur Specific [place] Urine Protein Urine Glucose (UA) Urine Blood Microalb/Creat Ratio Assessment and Plan Assessment & Plan (1) Mixed hyperlipidemia: Code(s): E78.2 - Mixed hyperlipidemia Plan: Results of his labs done last week reviewed and discussed with patient but his current labs did not include a fasting lipid profile Reminded again that his cholesterol levels last checked in June 2022 have increased from last year, with his LDL cholesterol at 160 mg/dl Reinforced low cholesterol diet Will recheck his labs and fasting lipids in 4 months for follow up (2) Benign essential hypertension: Code(s): I10 - Essential (primary) hypertension Plan: Reinforced low sodium diet - goal is systolic BP of at least 130 mm or less Continue Lisinopril 5 mg QD Patient instructed to continue monitoring his blood pressure regularly (3) Impaired fasting glucose: Code(s): R73.01 - Impaired fasting glucose Plan: HgbA1c has improved to 5.7% on his recent labs; was at 6.1% a few months ago Reinforced low calorie/low carb diet Will recheck his labs in 4 months for follow up (4) Elevated LFTs: Code(s): R79.89 - Other specified abnormal findings of blood chemistry Plan: Cautioned that his LFTs are still elevated on his recent labs and they have again increased slightly from previous - are most likely related to his weight (hepatosteatosis) and alcohol intake Patient admits to drinking a lot on weekends but does not drink at all during weeknights Encouraged to continue working on losing weight - he has lost about 10 pounds since his last visit - and reinforced complete abstinence (from alcohol) Will recheck LFTs and labs in 3 months for follow up; will need to consider abdominal US for further evaluation if his LFTs are still significantly elevated by then (5) Vitamin D deficiency: Code(s): E55.9 - Vitamin D deficiency, unspecified Plan: Continue Vitamin D3 2000 units QD (6) GERD without esophagitis: Code(s): K21.9 - Gastro-esophageal reflux disease without esophagitis Plan: States that his symptoms have been better controlled lately Reinforced dietary restrictions Continue Famotidine 20 mg Q HS PRN (7) Hearing loss, bilateral: Code(s): H91.93 - Unspecified hearing loss, bilateral Qualifiers: Hearing loss type: sensorineural Qualified Code(s): H90.3 - Sensorineural hearing loss, bilateral Plan: Audiometry done in February 2022 revealed (+) bilateral sensorineural hearing loss, worse in the right ear Per audiology recommendation, patient was referred to ENT for further evaluation due to the asymmetry in his audiometry findings (8) Smoker: Code(s): F17.200 - Nicotine dependence, unspecified, uncomplicated Plan: Counseled again on smoking cessation (9) Morbid obesity with BMI of 45.0-49.9, adult: Code(s): E66.01 - Morbid (severe) obesity due to excess calories; Z68.42 - Body mass index [BMI] 45.0-49.9, adult Plan: Reinforced diet/weight loss; exercise is difficult at this time due to patient's current orthopedic issues - he has been able to lose about 10 pounds since his last visit Plan Follow up in 4 months Orders: Orders Comprehensive [place]. Panel Fast 4 Months E78.00 - Pure hypercholesterolemia, unspecified Lipid Panel 4 Months E78.00 - Pure hypercholesterolemia, unspecified TSH reflex Free T4 4 Months E78.00 - Pure hypercholesterolemia, unspecified Vitamin D 25-OH Total 4 Months E55.9 - Vitamin D deficiency, unspecified Complete Blood Count Auto Diff 4 Months I10 - Essential (primary) hypertension UA CC w/rflx Micro + Cult 4 Months R30.0 - Dysuria Coding Level of Care Code Est Pt Level 4 (59086) Diagnoses Mixed hyperlipidemia E78.2 Benign essential hypertension I10 Impaired fasting glucose R73.01 Elevated LFTs R79.89 Vitamin D deficiency E55.9 GERD without esophagitis K21.9 Hearing loss, bilateral H90.3 Hearing loss type: sensorineural Smoker F17.200 Morbid obesity with BMI of 45.0-49.9, adult E66.01; Z68.42
== END 2022-11-03 15:20 | disposition home or self-care (01) ==
PROVIDERS: PCP Internal Medicine; Visit Provider Internal Medicine
DX: E78.2 Mixed hyperlipidemia (principal); I10 Essential (primary) hypertension; K21.9 Gastro-esophageal reflux disease without esophagitis; F17.210 Nicotine dependence, cigarettes, uncomplicated; E55.9 Vitamin D deficiency, unspecified; E66.01 Morbid (severe) obesity due to excess calories; Z68.42 Body mass index [BMI] 45.0-49.9, adult; R73.01 Impaired fasting glucose; H90.3 Sensorineural hearing loss, bilateral; R79.89 Other specified abnormal findings of blood chemistry
CPT/HCPCS: 99214

== ENCOUNTER 2023-03-26 09:22 | Outpatient (REF) | payer OTHER, SELFPAY ==
[2023-03-26 09:54] LABS: MANUAL DIFF FLAG NO
[2023-03-26 10:32] LABS: Appearance Urine Clear; Color Urine Yellow; Glucose Urine UA Negative (Negative); Leukocyte Esterase Urine Negative (Negative); Nitrite Urine Negative (Negative); Specific Gravity - Urine 1.025 (1.005-1.025); Urine Blood Negative (Negative); Urine Ketones Trace mg/dL (Negative); Urine Protein Negative (Neg-Trace)
[2023-03-26 10:40] LABS: Basophils Percent Auto 0.4 % (0-2); Eosinophils Absolute Auto 0.1 X10*3/uL (0.0-0.4); Eosinophils Percent Auto 2.1 % (0-4); Hematocrit 45.7 % (42.0-52.0); Hemoglobin 15.7 g/dl (14.0-18.0); Imm Gran Abs Auto 0.02 X10*3/uL (0.00-0.03); Imm Gran Pct Auto 0.3 % (0.0-0.4); Lymphocytes Absolute Auto 2.8 X10*3/uL (1.2-4.9); Lymphocytes Percent Auto 42.2 % (20-40); Mean Corpuscular HGB Conc 34.4 g/dl (31.0-36.0); Mean Corpuscular Hemoglobin 33.3 pg (27.0-33.0); Mean Platelet Volume 10.8 fL (9.4-12.4); Monocytes Absolute Auto 0.6 X10*3/uL (0.1-1.2); Monocytes Percent Auto 9.4 % (2-11); Neutrophils Absolute Auto 3.1 x10*3/uL (2.0-8.3); Neutrophils Percent Auto 45.6 % (45-73); Platelet Count 208 X10*3/uL (160-400); Red Blood Count 4.71 X10*6/uL (4.60-5.80); Red Cell Distribution Width 12.6 % (11.0-16.0); White Blood Count 6.7 X10*3/uL (4.8-10.8)
[2023-03-26 11:18] LABS: Alanine Aminotransferase 44 U/L (0-40); Albumin Level 4.2 g/dL (3.5-5.0); Alkaline Phosphatase 76 U/L (39-117); Anion Gap 13 (12-20); Aspartate Amino Transferase 28 U/L (5-37); Bilirubin Total 0.5 mg/dL (0.0-1.0); Blood Urea Nitrogen 13 mg/dL (9-16); Calcium 9.3 mg/dL (8.4-10.2); Carbon Dioxide 25 mmol/L (22-29); Chloride 106 mmol/L (96-108); Cholesterol 191 mg/dL (<200); Estimated Glomerular Filt Rate > 60; Glucose Fasting 97 mg/dL (60-99); HDL Cholesterol 68 mg/dL (>40); LDL Cholesterol Calculated 99 mg/dL (<100); Potassium 3.8 mmol/L (3.3-5.1); Sodium 140 mmol/L (135-145); Total Protein 7.5 g/dL (6.5-8.0); Triglycerides 124 mg/dL (<150)
[2023-03-26 11:33] LABS: TSH reflex Free T4 2.05 uIU/mL (0.32-4.0); Vitamin D 25-OH Total 18.1 ng/mL (>30)
== END 2023-03-26 09:23 | disposition home or self-care (01) ==
LOC: HO.LAB 09:22
PROVIDERS: Visit Provider Internal Medicine
DX: R30.0 Dysuria (principal); E78.00 Pure hypercholesterolemia, unspecified; E55.9 Vitamin D deficiency, unspecified; I10 Essential (primary) hypertension
CPT/HCPCS: 36415; 80053; 80061; 81003; 82306; 84443; 85025

== ENCOUNTER 2023-03-31 13:30 | Outpatient (AMB) | payer OTHER, SELFPAY ==
--- NOTE | 2023-03-31 13:34 | MHC.PC.OV ---
Vital Signs 03/31/23 13:35 Height 5 ft 8 in Weight 274 lb 8 oz BMI 41.7 BP 126/82 Blood Pressure Location Lt brachial Position Sitting Pulse 92 Pulse Source Pulse Oximeter Pulse Oximetry (%) 97 Oxygen Delivery Method Room Air Intake Visit Reasons: hyperlipidemia, elevated LFTs Equipment Operator/Laborer/Supervisor Required: No Accompanied by: Self / Same As Patient Allergies No Known Allergies [No Known Allergies*] Allergy (Verified 08/14/23 15:27) Medication List - Last Reconciled 03/31/23 by Marty Luna MD cholecalciferol (vitamin D3) 50 mcg PO DAILY 90 days famotidine 20 mg PO BEDTIME PRN 90 days lisinopril 5 mg PO DAILY 90 days Tobacco use date assessed: 03/31/23 Dental Screening Dental Screen Date: 03/31/23 Did you have a dental visit in the last 12 months?: No Did you have a dental problem in the last 6 months where you did not have access to dental care?: No Was dental information given to patient?: No HPI hyperlipidemia, elevated LFTs HPI Details Patient comes in today for his follow up visit States that he feels okay He denies any headaches or dizziness Denies any chest pains, no SOB No nausea/vomiting, no abdominal pain No change in bowel habits noted Adds that he has some fungal growth and disfigured toenails and he would like to get some Rx to help clear these up if possible Had his follow up labs done a few days ago - to discuss his results [facility] Medical History Morbid obesity with BMI of 40.0-44.9, adult Tinnitus Mixed hyperlipidemia GERD without esophagitis Elevated LFTs Vitamin D deficiency Impaired fasting glucose Benign essential hypertension Hearing loss, bilateral Smoker Surgical History (Updated 08/14/23 @ 18:59 by Marty Luna MD) Hx of colonoscopy History of knee surgery (~03/2013) Family History Father Epilepsy Heart attack High blood pressure Mother Diabetes Stroke Social History Housing: Apartment Alcohol intake: current Alcohol intake frequency: holidays/special occasions only Patient Tobacco Use Status: Current everyday Tobacco user Cigarettes Per Day: 10 e-Cigarette/Vaping Use: Never Used Second Hand Smoke Exposure: Yes service: No Current occupational status: unemployed Cognitive needs: No Hearing needs: Yes Vision needs: Yes (glasses) Questionnaire PHQ-9 Over the last 2 weeks, how often have you been bothered by any of the following problems? 1. Little interest or pleasure in doing things: not at all 2. Feeling down, depressed, or hopeless: not at all 3. Trouble falling or staying asleep, or sleeping too much: not at all 4. Feeling tired or having little energy: not at all 5. Poor appetite or overeating: not at all 6. Feeling bad about yourself - or that you are a failure or have let yourself or your family down: not at all 7. Trouble concentrating on things, such as reading the newspaper or watching television: not at all 8. Moving or speaking so slowly that other people could have noticed. Or the opposite - being so fidgety or restless that you have been moving around a lot more than usual: not at all 9. Thoughts that you would be better off or of hurting yourself in some way: not at all Total score: 0 Depression Screening Interpretation: Negative Depression Screening Done: Yes 09592 - PHQ-9 Billing: Yes Source: Developed by Drs. Jersey Tellez, Lis Andrew, Wm Zhang and colleagues, with an educational viktor from [employer]. Thrive Questionnaire Date Thrive assessed: 03/31/23 I am a: Patient What is your living situation today?: I have a place to live, but I am worried about losing it in the future Within the past 12 months, did the food you bought not last and you didn't have the money to get more?: Never true Within the past 12 months, did you worry whether your food would run out before you got money to buy more?: Never true Do you have trouble paying for medicines?: No Do you have trouble getting transportation to medical appointments?: No Do you have trouble paying your heating and electricity bill?: No Do you have trouble taking care of your child, family member or friend?: No Do you have trouble with day-to-day activities such as bathing, preparing meals, shopping, managing finances, etc.?: No Are you currently unemployed and looking for a job?: No Are you interested in more education?: No Please select the resources that you would like help with: None Currently or been in a relationship where the following occur: no concerns reported THRIVE Score: 1 AUDIT C Alcohol Use Questionnaire (AUDIT-C) 1. How often do you have a drink containing alcohol?: 2-3 times a week 2. How many drinks containing alcohol do you have on a typical day when you are drinking?: 1 or 2 3. How often do you have six or more drinks on one occasion?: Never Total Score: 3 Score Reviewed/Action Taken: Yes SANDEEP-7 AMB Questionnaire SANDEEP-7 Date SANDEEP - 7 assessed: 03/31/23 Feeling nervous, anxious, or on edge: 0 = Not at all Not being able to stop or control worryin = Not at all Worrying too much about different things: 0 = Not at all Trouble relaxin = Not at all Being so restless that it is hard to sit still: 0 = Not at all Becoming easily annoyed or irritable: 0 = Not at all Feeling afraid as if something awful might happen: 0 = Not at all Total SANDEEP-7 score (0-4 normal; 5-9 mild; 10-14 moderate; 15-21 severe): 0 Source: Developed by Drs. Jersey Tellez, Lis Andrew, Wm Zhang and colleagues, with an educational viktor from [employer]. Review of Systems Const Denies chills, Denies fatigue, Denies fever(s) and Denies headache(s) ENT Denies dysphagia, Denies dizziness, Denies otalgia, Denies headache(s), Denies neck pain, Denies odynophagia and Denies sore throat Card Denies chest pain, Denies palpitations and Denies dyspnea Resp Denies cough and Denies dyspnea GI Denies abdominal pain, Denies constipation, Denies dysphagia, Denies heartburn, Denies diarrhea, Denies nausea, Denies odynophagia and Denies vomiting Denies dysuria, Denies nocturia and Denies urinary frequency Musc Denies back pain and Denies neck pain Skin/Breast Details: (+) fungal growth and disfigured toenails Denies rash Neuro Denies dizziness and Denies headache(s) Endo Denies fatigue and Denies palpitations Physical exam (Primary Care) Vital Signs: Last Vital Signs Pulse 92 03/31/23 13:35 BP 126/82 03/31/23 13:35 Pulse Ox 97 03/31/23 13:35 Oxygen Delivery Method Room Air 03/31/23 13:35 BMI result Body Mass Index 41.7 Tobacco/Smoking Status: Tobacco use Status Tobacco use date assessed 03/31/23 03/31/23 13:36 Patient Tobacco Use Status Current everyday Tobacco 03/31/23 13:36 e-Cigarette/Vaping Use Never Used 03/31/23 13:36 PHQ-9: PHQ-9 Score PHQ-9: Total score 0 03/31/23 14:31 Depression Screening Interpretation: Negative Thrive Assessment: Date of Thrive Assessment Date Thrive assessed 03/31/23 03/31/23 13:36 Currently or been in a relationship where the following occur: no concerns reported Const General: no acute distress and alert HENMT Ears: TM's normal bilaterally and EAC's normal Throat: Yes posterior oropharynx normal and Yes tonsils normal (no TP congestion) Neck Neck: Yes no lymphadenopathy and Yes supple Thyroid: Thyroid normal Resp Auscultation: clear to auscultation bilaterally, no rales and no wheezes Cardio Rate: regular rate Rhythm: regular rhythm Heart sounds: no murmurs GI Palpation (GI): Soft to palpation and nontender Auscultation: normal bowel sounds General: Yes no CVA tenderness Back/Spine/Pelvis Back: no CVA tenderness Thoracic/Lumbar Spine: No lumbar spinal tenderness Skin Rashes: no rashes Extrem Other: (+) onycholysis noted on a few toenails on both feet General: Yes no clubbing, cyanosis or edema Results Reviewed Results Reviewed: Laboratory Tests 03/26/23 03/26/23 09:51 10:02 WBC 6.7 Hgb 15.7 Hct 45.7 Plt Count 208 Sodium 140 Potassium 3.8 Creatinine 0.96 Estimated GFR > 60 Fasting Glucose 97 Calcium 9.3 D AST 28 ALT 44 H Triglycerides 124 Cholesterol 191 LDL Cholesterol, Calc 99 HDL Cholesterol 68 25-OH Vitamin D Total 18.1 L TSH 2.05 Urine pH 5.0 Ur Specific [place] 1.025 Urine Protein Negative Urine Glucose (UA) Negative Urine Blood Negative Assessment and Plan Assessment & Plan (1) Mixed hyperlipidemia: Code(s): E78.2 - Mixed hyperlipidemia Plan: Results of his labs done a few days ago reviewed and discussed with patient - advised that his cholesterol levels have improved significantly from previous Reinforced low cholesterol diet Will recheck his labs and fasting lipids in 4 months for follow up (2) Benign essential hypertension: Code(s): I10 - Essential (primary) hypertension Plan: Reinforced low sodium diet - goal is systolic BP of at least 130 mm or less Continue Lisinopril 5 mg QD Patient is reminded to continue monitoring his blood pressure regularly (3) Impaired fasting glucose: Code(s): R73.01 - Impaired fasting glucose Plan: HgbA1c has improved to 5.7% when previously checked in October 2022; was previously at 6.1% His FBS was normal at 97 mg/dl on his recent labs Reinforced low calorie/low carb diet (4) Elevated LFTs: Code(s): R79.89 - Other specified abnormal findings of blood chemistry Plan: He is advised that his LFTs have improved significantly on his recent labs - his AST is back to normal and ALT is almost normal Discussed again that his elevated LFTs were most likely related to his weight (hepatosteatosis) Will recheck his LFTs and labs in 4 months for follow up (5) Vitamin D deficiency: Code(s): E55.9 - Vitamin D deficiency, unspecified Plan: He is advised that his Vitamin D level have declined slightly from previous on his recent labs and that he should continue taking his Vitamin D3 2000 units QD (6) GERD without esophagitis: Code(s): K21.9 - Gastro-esophageal reflux disease without esophagitis Plan: Reinforced dietary restrictions Continue Famotidine 20 mg Q HS PRN (7) Onychomycosis of toenail: Code(s): B35.1 - Tinea unguium Plan: Have offered to refer him to podiatry for this but patient declined - states that he prefers to try some Rx at this time Will start him on Clotrimazole topical solution 1% apply to affected toenail(s) BID for up to 12 weeks He is advised that if this does not help, then he will really need to consider seeing podiatry for these (8) Hearing loss, bilateral: Code(s): H91.93 - Unspecified hearing loss, bilateral Qualifiers: Hearing loss type: sensorineural Qualified Code(s): H90.3 - Sensorineural hearing loss, bilateral Plan: Audiometry done in February 2022 revealed (+) bilateral sensorineural hearing loss, worse in the right ear Follow up with ENT as scheduled - states that he was provided with a hearing aid for one of his ears (9) Smoker: Code(s): F17.200 - Nicotine dependence, unspecified, uncomplicated Plan: Counseled again on smoking cessation (10) Morbid obesity with BMI of 40.0-44.9, adult: Code(s): E66.01 - Morbid (severe) obesity due to excess calories; Z68.41 - Body mass index [BMI] 40.0-44.9, adult Plan: Reinforced diet/weight loss; exercise is somewhat difficult due to patient's current orthopedic issues BUT he has been able to lose another 10 pounds since his last visit Plan Follow up in 4 months Orders: Orders Comprehensive [place]. Panel Fast 4 Months E78.00 - Pure hypercholesterolemia, unspecified Lipid Panel 4 Months E78.00 - Pure hypercholesterolemia, unspecified Medications: New clotrimazole 1% 1 appl topical BID 60 mL 0RF 12 weeks Coding Level of Care Code Est Pt Level 4 (09291) Diagnoses Mixed hyperlipidemia E78.2 Benign essential hypertension I10 Impaired fasting glucose R73.01 Elevated LFTs R79.89 Vitamin D deficiency E55.9 GERD without esophagitis K21.9 Onychomycosis of toenail B35.1 Sensorineural hearing loss (SNHL) of both ears H90.3 Hearing loss type: sensorineural Smoker F17.200 Morbid obesity with BMI of 40.0-44.9, adult E66.01; Z68.41
[2023-03-31 13:35] VITALS: BP 126/82; PULSE 92; O2SAT 97; BMI 41.7
== END 2023-03-31 14:37 | disposition home or self-care (01) ==
PROVIDERS: PCP Internal Medicine; Visit Provider Internal Medicine
DX: E78.2 Mixed hyperlipidemia (principal); I10 Essential (primary) hypertension; R73.01 Impaired fasting glucose; R79.89 Other specified abnormal findings of blood chemistry; E55.9 Vitamin D deficiency, unspecified; K21.9 Gastro-esophageal reflux disease without esophagitis; B35.1 Tinea unguium; H90.3 Sensorineural hearing loss, bilateral; F17.200 Nicotine dependence, unspecified, uncomplicated; E66.01 Morbid (severe) obesity due to excess calories; Z68.41 Body mass index [BMI] 40.0-44.9, adult
CPT/HCPCS: 99214

== ENCOUNTER 2023-08-04 06:49 | Outpatient (REF) | payer OTHER, SELFPAY ==
[2023-08-04 08:36] LABS: Alanine Aminotransferase 61 U/L (0-40); Albumin Level 4.4 g/dL (3.5-5.0); Alkaline Phosphatase 84 U/L (39-117); Anion Gap 15 (12-20); Aspartate Amino Transferase 40 U/L (5-37); Bilirubin Total 0.9 mg/dL (0.0-1.0); Blood Urea Nitrogen 8 mg/dL (9-16); Calcium 9.3 mg/dL (8.4-10.2); Carbon Dioxide 23 mmol/L (22-29); Chloride 106 mmol/L (96-108); Cholesterol 202 mg/dL (<200); Estimated Glomerular Filt Rate > 60; Glucose Fasting 109 mg/dL (60-99); HDL Cholesterol 53 mg/dL (>40); LDL Cholesterol Calculated 114 mg/dL (<100); Potassium 3.8 mmol/L (3.3-5.1); Sodium 140 mmol/L (135-145); Total Protein 7.6 g/dL (6.5-8.0); Triglycerides 178 mg/dL (<150)
== END 2023-08-04 06:50 | disposition home or self-care (01) ==
LOC: HO.LAB 06:49
PROVIDERS: PCP Internal Medicine; Visit Provider Internal Medicine
DX: E78.00 Pure hypercholesterolemia, unspecified (principal)
CPT/HCPCS: 36415; 80053; 80061

== ENCOUNTER 2023-08-04 07:05 | Day surgery (SDC) | payer OTHER, SELFPAY ==
--- NOTE | 2023-08-04 07:45 | MHC.SHP ---
Pre-Procedural Eval Section A - 24 Hr Update-Section A only Date of Service: 08/04/23 Section B - Complete if H&P > 30 days Chief Complaint: Polyp of colon,benign neoplasm, Relevant Family History (Specify if Yes): No Relevant Social History: Tobacco Use Present Medications: see Short Stay Collaborative assessment Medical History: Significant History (Benign essential hypertension Elevated LFTs GERD without esophagitis Hearing loss, bilateral Impaired fasting glucose Mixed hyperlipidemia Morbid obesity with BMI of 45.0-49.9, adult Smoker Tinnitus Vitamin D deficiency) History of Previous Operations: Relevant previous surgery/procedure and date(s) (History of knee surgery (~03/2013)) Allergies: Allergies Allergy/AdvReac Type Severity Reaction Status Date / Time No Known Allergies Allergy Verified 03/31/23 14:17 [No Known Allergies*] Review of Systems Sugical H&P ROS: Negative: Constitution, Cardiovascular, Respiratory, Neurological, Psychiatric, Hem-Onc, Allergic/Immunologic, Gastrointestinal, Genitourinary, Musculoskeletal, Integumentary, Endocrine and Eyes/Ears/Nose/Throat Exam Surgical H&P Exam: Normal: HEENT, Normal: Heart, Normal: Lungs, Normal: Extremities, Normal: Abdomen, Normal: Skin and Normal: Neurological Plan Diagnosis/Plan: Unchanged I have reviewed the history and physical and performed a pertinent physical examination on my patient. No changes have occurred unless specified. Time Spent With Patient Time: Total time managing care of this patient today ____ minutes.
[2023-08-04 08:03] VITALS: BMI 44.9
[2023-08-04 08:05] VITALS: BP 152/99; PULSE 83; RESP 16; TEMP 36.6; O2SAT 98
--- NOTE | 2023-08-04 08:09 | HO.ANESPROP2 ---
[facility], LATER [facility] Active Problems Active Problems: All Active Problems Onychomycosis of toenail (Acute) Morbid obesity with BMI of 40.0-44.9, adult (Acute) Tubulovillous adenoma (Acute) Sessile colonic polyp (Acute) Pedunculated colonic polyp (Acute) Annual physical exam (Acute) Elevated blood pressure reading without diagnosis of hypertension (Acute) Tears of meniscus and ACL of left knee (Acute) Right ankle pain (Acute) Right knee pain (Acute) Ganglion cyst of volar aspect of left wrist (Acute) Encounter for screening colonoscopy (Acute) Colon cancer screening (Acute) Asymmetrical hearing loss (Acute) Tinnitus of right ear (Acute) Mixed hyperlipidemia (Acute) GERD without esophagitis (Acute) Elevated LFTs (Acute) Vitamin D deficiency (Acute) Impaired fasting glucose (Acute) Benign essential hypertension (Acute) Hearing loss, bilateral (Acute) Morbid obesity with BMI of 45.0-49.9, adult (Acute) Smoker (Acute) Past Medical History Medical History Morbid obesity with BMI of 40.0-44.9, adult Tinnitus Mixed hyperlipidemia GERD without esophagitis Elevated LFTs Vitamin D deficiency Impaired fasting glucose Benign essential hypertension Hearing loss, bilateral Smoker Family History Family History Father Epilepsy Heart attack High blood pressure Mother Diabetes Stroke Family history of problems with anesthesia: No Surgical History Surgical History Hx of colonoscopy History of knee surgery (~03/2013) History of Problems with Anesthesia: No Social History Social History Housing: Apartment Alcohol intake: current Alcohol intake frequency: holidays/special occasions only Patient Tobacco Use Status: Current everyday Tobacco user Cigarettes Per Day: 10 e-Cigarette/Vaping Use: Never Used Second Hand Smoke Exposure: Yes Use of substances other than those prescribed or required for medical reasons: No Are you DNR?: No Advance Directives: No Advance Directives Information Provided: Yes service: No Current occupational status: unemployed Cognitive needs: No Hearing needs: Yes Vision needs: Yes Meds Allergies Allergy/AdvReac Type Severity Reaction Status Date / Time No Known Allergies Allergy Verified 03/31/23 14:17 [No Known Allergies*] Exam Height,Weight and Vital Signs: Height 5 ft 8 in Weight 134.082 kg Last Vital Signs Temp 97.8 F 08/04/23 08:05 Pulse 83 08/04/23 08:05 Resp 16 08/04/23 08:05 BP 152/99 H 08/04/23 08:05 Pulse Ox 98 08/04/23 08:05 O2 Del Method Room Air 08/04/23 08:05 Airway Mallampati Class: II TM Dist: <=3cm Neck ROM: Full Loose/Missing/Broken Teeth: No Heart: rrr Lungs: cta Assessment and Plan Assessment Anesthesia Assessment: Anesthesia Plan Discussed and Chart Reviewed Final Anesthetic Review Family History of Problems with Anesthesia: No History of Problems with Anesthesia: No NPO: Yes ASA Class: III Final Preanesthetic Review: No Changes in Pt Med Stat, Meds/Allgs Chart Reviewed, Consent Obtained/Reviewed and Anes Risks/Benef Reviewed Patient Risk: Intermediate Procedure Risk: Intermediate Anesthetic Plan Anesthetic Plan: MAC: Disposition: Standard PACU
[2023-08-04 08:24] VITALS: BP 152/99; PULSE 83; RESP 16; TEMP 36.6; O2SAT 98
[2023-08-04] MEDS: Lactated Ringers 1,000 ML 100 ML IVCONT (08:26)
--- NOTE | 2023-08-04 09:56 | P.OPN-COLO_ITS ---
Colonoscopy Operative Note Operative Note Date of Service: 08/04/23 Narrative: Operative Information Procedure Description: Colonoscopy Indication: hx of colon polyps Anesthesia: MAC COLONOSCOPY Instrument: Olympus variable stiffness pediatric scope 190L Colonoscopy Monitoring: Vital signs and clinical assessment, continuous EKG monitoring, Pulse oximetry, Carbon Dioxide monitoring and blood pressure monitoring were done throughout the procedure. Colon withdrawal time was 12 minutes. Procedure: The patient was placed in the left lateral decubitis position and pre-procedure medications were administered. After a digital rectal examination of the ano-rectum, the video colonoscope was inserted into the rectum and advanced through the colon to the cecum/TI. The colonoscope was slowly withdrawn in a retrograde panoramic fashion and the colon mucosa was carefully examined including a retroflexed view of the rectum. Findings and interventions are described below. Procedure Difficulty: easy Findings: Terminal Ileum-normal Cecum:normal Ascending Colon: x 2 sessile polyps 6-8 mm removed with cold snare Transverse Colon -normal Descending Colon: 4-5 mm sessile polyp removed with cold forceps Sigmoid Colon: normal Rectum: Retroflexion with small internal hemorrhoids seen, grade I Anorectum - normal Intervention: cold snare, cold forceps Colon preparation: [place] Bowel Preparation Scale Right colon; 2 Transverse colon: 2 Left colon; 2 (0 = Unprepared colon segment with mucosa not seen due to solid stool that cannot be cleared. 1 = Portion of mucosa of the colon segment seen, but other areas of the colon segment not well seen due to staining, residual stool and/or opaque liquid. 2 = Minor amount of residual staining, small fragments of stool and/or opaque liquid, but mucosa of colon segment seen well. 3 = Entire mucosa of colon segment seen well with no residual staining, small fragments of stool or opaque liquid) Impression and Post Procedure Diagnosis: colon polyps internal hemorrhoids Plan: High fiber diet leaflet Avoid straining at stool, epsom salts and sitz bath, anusol supps or cream Repeat Colonoscopy in 1-2 years due to hx of poylps and concern for sessile serrated syndrome or earlier if clinically indicated Above findings were reviewed with the patient and relevant handouts were provided if indicated.
[2023-08-04 10:03] VITALS: BP 155/97; PULSE 98; RESP 16; TEMP 36.6; O2SAT 98
[2023-08-04 10:18] VITALS: BP 114/79; PULSE 80; RESP 16; TEMP 36.3; O2SAT 98
== END 2023-08-04 11:18 | disposition home or self-care (01) ==
PROVIDERS: PCP Internal Medicine; Visit Provider Internal Medicine Gastroenterology
PROC: 0DJD8ZZ Inspection of Lower Intestinal Tract, Via Natural or Artificial Opening Endoscopic (ICD-10-PCS; CPT 45378; principal; 2023-08-04 09:10)
DX: D12.4 Benign neoplasm of descending colon (principal); K63.5 Polyp of colon; K64.0 First degree hemorrhoids; I10 Essential (primary) hypertension
CPT/HCPCS: 45385; 45380; 88305; J2704

== ENCOUNTER → 2023-08-04 07:05 | Outpatient (BNV) | payer OTHER, SELFPAY | PROVIDERS: PCP Internal Medicine; Visit Provider Internal Medicine Gastroenterology | DX: Z12.11 Encounter for screening for malignant neoplasm of colon (principal); Z86.010 Personal history of colon polyps; D12.4 Benign neoplasm of descending colon; K63.5 Polyp of colon | CPT/HCPCS: 45380; 45385 ==

== ENCOUNTER 2023-08-14 14:31 | Outpatient (AMB) | payer OTHER, SELFPAY ==
--- NOTE | 2023-08-14 14:34 | A.OFFPC_ITS ---
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 per policy Accompanied by: Self / Same As Patient Allergies No Known Allergies [No Known Allergies*] Allergy (Verified 08/14/23 15:27) Medication List - Last Reconciled 08/14/23 by Marty Luna MD bisacodyl (Dulcolax (bisacodyl)) 20 mg (4 x 5 mg) PO ONCE 1 day cholecalciferol (vitamin D3) 50 mcg PO DAILY 90 days clotrimazole 1% 1 appl topical BID 12 weeks famotidine 20 mg PO BEDTIME PRN 90 days lisinopril 5 mg PO DAILY 90 days polyethylene glycol 3350 (Miralax) 238 grams PO ONCE 1 day Tobacco use date assessed: 03/31/23 Dental Screening Dental Screen Date: 03/31/23 HPI HTN, hyperlipidemia, elevated LFTs HPI Details Patient comes in today for his follow up visit States that he feels okay He denies any headaches or dizziness Denies any chest pains, no SOB No nausea/vomiting, no abdominal pain No change in bowel habits noted Had his follow up labs done last week - to discuss his results He also had his colonoscopy done last week - was advised that he had some polyps that were removed and he has a follow up appt with GI to discuss his results further next week [facility] Medical History Morbid obesity with BMI of 40.0-44.9, adult Tinnitus Mixed hyperlipidemia GERD without esophagitis Elevated LFTs Vitamin D deficiency Impaired fasting glucose Benign essential hypertension Hearing loss, bilateral Smoker Surgical History (Updated 08/14/23 @ 18:59 by Marty Luna MD) Hx of colonoscopy History of knee surgery (~03/2013) Family History Father Epilepsy Heart attack High blood pressure Mother Diabetes Stroke Social History Housing: Apartment Alcohol intake: current Alcohol intake frequency: holidays/special occasions only Patient Tobacco Use Status: Current everyday Tobacco user Cigarettes Per Day: 10 e-Cigarette/Vaping Use: Never Used Second Hand Smoke Exposure: Yes service: No Current occupational status: unemployed Cognitive needs: No Hearing needs: Yes Vision needs: Yes (glasses) Questionnaire Thrive Questionnaire Date Thrive assessed: 03/31/23 SANDEEP-7 AMB Questionnaire SANDEEP-7 Date SANDEEP - 7 assessed: 03/31/23 Source: Developed by Drs. Jersey Tellez, Lis Andrew, Wm Zhang and colleagues, with an educational viktor from [employer]. Review of Systems Const Denies chills, Denies fatigue, Denies fever(s) and Denies headache(s) ENT Denies dysphagia, Denies dizziness, Denies otalgia, Denies headache(s), Denies neck pain, Denies odynophagia and Denies sore throat Card Denies chest pain, Denies palpitations and Denies dyspnea Resp Denies cough and Denies dyspnea GI Denies abdominal pain, Denies constipation, Denies dysphagia, Denies heartburn, Denies diarrhea, Denies nausea, Denies odynophagia and Denies vomiting Denies dysuria, Denies nocturia and Denies urinary frequency Musc Denies back pain and Denies neck pain Skin/Breast Denies rash Neuro Denies dizziness and Denies headache(s) Endo Denies fatigue and Denies palpitations Physical exam (Primary Care) Vital Signs: Last Vital Signs Pulse 89 08/14/23 14:35 BP 128/82 08/14/23 14:35 Pulse Ox 98 08/14/23 14:35 Oxygen Delivery Method Room Air 08/14/23 14:35 BMI result Body Mass Index 44.4 Tobacco/Smoking Status: Tobacco use Status Tobacco use date assessed 03/31/23 08/14/23 14:35 Patient Tobacco Use Status Current everyday Tobacco 08/14/23 14:35 e-Cigarette/Vaping Use Never Used 08/14/23 14:35 Thrive Assessment: Date of Thrive Assessment Date Thrive assessed 03/31/23 08/14/23 14:35 Const General: no acute distress and alert HENMT Ears: TM's normal bilaterally and EAC's normal Throat: Yes posterior oropharynx normal and Yes tonsils normal (no TP con gestion) Neck Neck: Yes no lymphadenopathy and Yes supple Thyroid: Thyroid normal Resp Auscultation: clear to auscultation bilaterally, no rales and no wheezes Cardio Rate: regular rate Rhythm: regular rhythm Heart sounds: no murmurs GI Palpation (GI): Soft to palpation and nontender Auscultation: normal bowel sounds General: Yes no CVA tenderness Back/Spine/Pelvis Back: no CVA tenderness Skin Rashes: no rashes Extrem General: Yes no clubbing, cyanosis or edema Results Reviewed Results Reviewed: Laboratory Tests 10/28/22 03/26/23 03/26/23 08:16 09:51 10:02 WBC 6.7 Hgb 15.7 Hct 45.7 Plt Count 208 Sodium 140 Potassium 3.8 Creatinine 0.96 Estimated GFR > 60 Fasting Glucose 97 Hemoglobin A1c % 5.7 Calcium 9.3 D AST 28 ALT 44 H Triglycerides 124 Cholesterol 191 LDL Cholesterol, Calc 99 HDL Cholesterol 68 25-OH Vitamin D Total 18.1 L TSH 2.05 Ur Specific Mather 1.025 Urine Protein Negative Urine Glucose (UA) Negative Urine Blood Negative 08/04/23 07:00 WBC Hgb Hct Plt Count Sodium 140 Potassium 3.8 Creatinine 0.78 Estimated GFR > 60 Fasting Glucose 109 H Hemoglobin A1c % Calcium AST 40 H ALT 61 H Triglycerides 178 H Cholesterol 202 H LDL Cholesterol, Calc 114 H HDL Cholesterol 53 25-OH Vitamin D Total TSH Ur Specific Mather Urine Protein Urine Glucose (UA) Urine Blood Assessment and Plan Assessment & Plan (1) Mixed hyperlipidemia: Code(s): E78.2 - Mixed hyperlipidemia Plan: Results of his labs done last week reviewed and discussed with patient - advised that his cholesterol levels have increased from previous Reinforced low cholesterol diet Will recheck his labs and fasting lipids in 4 months for follow up (2) Benign essential hypertension: Code(s): I10 - Essential (primary) hypertension Plan: Reinforced low sodium diet - goal is systolic BP of at least 130 mm or less Continue Lisinopril 5 mg QD Patient is reminded to continue monitoring his blood pressure regularly (3) Impaired fasting glucose: Code(s): R73.01 - Impaired fasting glucose Plan: HgbA1c was at 5.7% when previously checked earlier this year (was at 6.1% previously) but he is cautioned that his FBS has again increased on his recent labs, likely due to his significant weight gain over the past few months Reinforced low calorie/low carb diet (4) Elevated LFTs: Code(s): R79.89 - Other specified abnormal findings of blood chemistry Plan: He is advised that his LFTs have increased again on his recent labs - both AST and ALT are again elevated, likely a result of his recent weight gain Is advised again that these should improve with weight loss Will recheck his LFTs and labs in 4 months for follow up (5) Vitamin D deficiency: Code(s): E55.9 - Vitamin D deficiency, unspecified Plan: Continue Vitamin D3 2000 units QD (6) GERD without esophagitis: Code(s): K21.9 - Gastro-esophageal reflux disease without esophagitis Plan: Reinforced dietary restrictions Continue Famotidine 20 mg Q HS PRN (7) Hearing loss, bilateral: Code(s): H91.93 - Unspecified hearing loss, bilateral Qualifiers: Hearing loss type: sensorineural Qualified Code(s): H90.3 - Sensorineural hearing loss, bilateral Plan: Audiometry done in February 2022 revealed (+) bilateral sensorineural hearing loss, worse in the right ear Follow up with ENT as scheduled - states that he was provided with a hearing aid for one of his ears (8) Smoker: Code(s): F17.200 - Nicotine dependence, unspecified, uncomplicated Plan: Counseled again on smoking cessation (9) Morbid obesity with BMI of 40.0-44.9, adult: Code(s): E66.01 - Morbid (severe) obesity due to excess calories; Z68.41 - Body mass index [BMI] 40.0-44.9, adult Plan: Reinforced diet/weight loss; exercise is somewhat difficult due to patient's current orthopedic issues He is cautioned that he has gained almost 20 pounds since his last visit Plan Follow up in 4 months Orders: Orders Lipid Panel 4 Months E78.00 - Pure hypercholesterolemia, unspecified Vitamin D 25-OH Total 4 Months E55.9 - Vitamin D deficiency, unspecified Complete Blood Count Auto Diff 4 Months D64.9 - Anemia, unspecified Comprehensive [place]. Panel Fast 4 Months E78.00 - Pure hypercholesterolemia, unspecified TSH reflex Free T4 4 Months E78.00 - Pure hypercholesterolemia, unspecified UA CC w/rflx Micro + Cult 4 Months R30.0 - Dysuria Hemoglobin A1c 4 Months R73.9 - Hyperglycemia, unspecified Coding Level of Care Code Est Pt Level 4 (57747) Diagnoses Mixed hyperlipidemia E78.2 Benign essential hypertension I10 Impaired fasting glucose R73.01 Elevated LFTs R79.89 Vitamin D deficiency E55.9 GERD without esophagitis K21.9 Sensorineural hearing loss (SNHL) of both ears H90.3 Hearing loss type: sensorineural Smoker F17.200 Morbid obesity with BMI of 40.0-44.9, adult E66.01; Z68.41
[2023-08-14 14:35] VITALS: BP 128/82; PULSE 89; O2SAT 98; BMI 44.4
== END 2023-08-14 15:37 | disposition home or self-care (01) ==
PROVIDERS: PCP Internal Medicine; Visit Provider Internal Medicine
DX: E78.2 Mixed hyperlipidemia (principal); I10 Essential (primary) hypertension; E66.01 Morbid (severe) obesity due to excess calories; Z68.41 Body mass index [BMI] 40.0-44.9, adult; R73.01 Impaired fasting glucose; R79.89 Other specified abnormal findings of blood chemistry; E55.9 Vitamin D deficiency, unspecified; K21.9 Gastro-esophageal reflux disease without esophagitis; H90.3 Sensorineural hearing loss, bilateral; F17.200 Nicotine dependence, unspecified, uncomplicated
CPT/HCPCS: 99214

== ENCOUNTER 2023-12-14 16:32 | Outpatient (REF) | payer OTHER, SELFPAY ==
[2023-12-14 16:55] LABS: MANUAL DIFF FLAG NO
[2023-12-14 17:10] LABS: Appearance Urine Clear; Color Urine Yellow; Glucose Urine UA Negative (Negative); Leukocyte Esterase Urine Negative (Negative); Nitrite Urine Negative (Negative); PH 5.5 (5.0-9.0); Urine Blood Negative (Negative); Urine Ketones Negative (Negative); Urine Protein Negative (Neg-Trace)
[2023-12-14 17:11] LABS: Basophils Percent Auto 0.4 % (0-2); Eosinophils Absolute Auto 0.3 X10*3/uL (0.0-0.4); Eosinophils Percent Auto 3.8 % (0-4); Hematocrit 45.7 % (42.0-52.0); Hemoglobin 16.1 g/dl (14.0-18.0); Imm Gran Abs Auto 0.05 X10*3/uL (0.00-0.03); Imm Gran Pct Auto 0.7 % (0.0-0.4); Lymphocytes Absolute Auto 1.9 X10*3/uL (1.2-4.9); Lymphocytes Percent Auto 25.5 % (20-40); Mean Corpuscular HGB Conc 35.2 g/dl (31.0-36.0); Mean Corpuscular Hemoglobin 33.3 pg (27.0-33.0); Mean Corpuscular Volume 94.6 fL (80.0-98.0); Monocytes Absolute Auto 0.6 X10*3/uL (0.1-1.2); Neutrophils Absolute Auto 4.5 x10*3/uL (2.0-8.3); Neutrophils Percent Auto 61.6 % (45-73); Platelet Count 215 X10*3/uL (160-400); Red Blood Count 4.83 X10*6/uL (4.60-5.80); Red Cell Distribution Width 12.4 % (11.0-16.0); White Blood Count 7.3 X10*3/uL (4.8-10.8)
[2023-12-14 17:29] LABS: Estimated Average Glucose 123 mg/dL; Hemoglobin A1C 168.0852 umol/L; Hemoglobin A1c % 5.9 % (<6.0); Total Hemoglobin (HGBA1C) 4051.2243 umol/L
[2023-12-14 17:58] LABS: TSH reflex Free T4 1.11 uIU/mL (0.32-4.0); Vitamin D 25-OH Total 20.4 ng/mL (>30)
[2023-12-14 18:11] LABS: Alanine Aminotransferase 39 U/L (0-40); Albumin Level 4.2 g/dL (3.5-5.0); Alkaline Phosphatase 81 U/L (39-117); Anion Gap 13 (12-20); Aspartate Amino Transferase 29 U/L (5-37); Bilirubin Total 0.6 mg/dL (0.0-1.0); Blood Urea Nitrogen 9 mg/dL (9-16); Calcium 9.9 mg/dL (8.4-10.2); Carbon Dioxide 25 mmol/L (22-29); Chloride 105 mmol/L (96-108); Cholesterol 181 mg/dL (<200); Estimated Glomerular Filt Rate > 60; Glucose Fasting 127 mg/dL (60-99); HDL Cholesterol 50 mg/dL (>40); LDL Cholesterol Calculated 105 mg/dL (<100); Potassium 4.6 mmol/L (3.3-5.1); Sodium 138 mmol/L (135-145); Total Protein 7.7 g/dL (6.5-8.0); Triglycerides 133 mg/dL (<150)
== END 2023-12-14 16:33 | disposition home or self-care (01) ==
LOC: HO.LAB 16:32
PROVIDERS: PCP Internal Medicine; Visit Provider Internal Medicine
DX: E78.00 Pure hypercholesterolemia, unspecified (principal); D64.9 Anemia, unspecified; R30.0 Dysuria; E55.9 Vitamin D deficiency, unspecified; R73.9 Hyperglycemia, unspecified
CPT/HCPCS: 36415; 80053; 80061; 81003; 82306; 83036; 84443; 85025

== ENCOUNTER 2023-12-18 14:47 | Outpatient (AMB) | payer OTHER, SELFPAY ==
[2023-12-18 14:49] VITALS: BP 142/90; PULSE 109; O2SAT 96; BMI 44.8
--- NOTE | 2023-12-18 14:49 | MHC.PC.OV ---
Vital Signs 12/18/23 14:49 Height 5 ft 8 in Weight 294 lb 8 oz BMI 44.8 BP 142/90 H Blood Pressure Location Lt brachial Position Sitting Pulse 109 H Pulse Source Pulse Oximeter Pulse Oximetry (%) 96 Oxygen Delivery Method Room Air Intake Visit Reasons: [facility] f/u Bucket Turner Required: No Accompanied by: Self / Same As Patient Allergies No Known Allergies [No Known Allergies*] Allergy (Verified 12/18/23 15:19) Medication List - Last Reconciled 12/18/23 by Marty Luna MD bisacodyl (Dulcolax (bisacodyl)) 20 mg (4 x 5 mg) PO ONCE 1 day cholecalciferol (vitamin D3) 50 mcg PO DAILY 90 days clotrimazole 1% 1 appl topical BID 12 weeks famotidine 20 mg PO BEDTIME PRN 90 days lisinopril 5 mg PO DAILY 90 days polyethylene glycol 3350 (Miralax) 238 grams PO ONCE 1 day Tobacco use date assessed: 12/18/23 Dental Screening Dental Screen Date: 12/18/23 Did you have a dental visit in the last 12 months?: No Did you have a dental problem in the last 6 months where you did not have access to dental care?: No Was dental information given to patient?: No HPI [facility] f/u HPI Details Patient comes in today for his follow up visit States that he feels okay He denies any headaches or dizziness Denies any chest pains, no SOB No nausea/vomiting, no abdominal pain No change in bowel habits noted He had his follow up labs done a few days ago - to discuss his results [facility] Medical History Morbid obesity with BMI of 40.0-44.9, adult Tinnitus Mixed hyperlipidemia GERD without esophagitis Elevated LFTs Vitamin D deficiency Impaired fasting glucose Benign essential hypertension Hearing loss, bilateral Smoker Surgical History Hx of colonoscopy History of knee surgery (~03/2013) Family History Father Epilepsy Heart attack High blood pressure Mother Diabetes Stroke Social History Housing: Apartment Alcohol intake: current Alcohol intake frequency: holidays/special occasions only Patient Tobacco Use Status: Current everyday Tobacco user Cigarettes Per Day: 10 e-Cigarette/Vaping Use: Never Used Second Hand Smoke Exposure: Yes service: No Current occupational status: unemployed Cognitive needs: No Hearing needs: Yes Vision needs: Yes (glasses) Questionnaire PHQ-9 Over the last 2 weeks, how often have you been bothered by any of the following problems? 1. Little interest or pleasure in doing things: not at all 2. Feeling down, depressed, or hopeless: not at all 3. Trouble falling or staying asleep, or sleeping too much: not at all 4. Feeling tired or having little energy: not at all 5. Poor appetite or overeating: not at all 6. Feeling bad about yourself - or that you are a failure or have let yourself or your family down: not at all 7. Trouble concentrating on things, such as reading the newspaper or watching television: not at all 8. Moving or speaking so slowly that other people could have noticed. Or the opposite - being so fidgety or restless that you have been moving around a lot more than usual: not at all 9. Thoughts that you would be better off or of hurting yourself in some way: not at all Total score: 0 Depression Screening Interpretation: Negative Depression Screening Done: Yes 20850 - PHQ-9 Billing: Yes Source: Developed by Drs. Jersey Tellez, Lis Andrew, Wm Zhang and colleagues, with an educational viktor from [employer]. Thrive Questionnaire Date Thrive assessed: 12/18/23 I am a: Patient What is your living situation today?: I have a steady place to live Within the past 12 months, did the food you bought not last and you didn't have the money to get more?: Never true Within the past 12 months, did you worry whether your food would run out before you got money to buy more?: Never true Do you have trouble paying for medicines?: No Do you have trouble getting transportation to medical appointments?: No Do you have trouble paying your heating and electricity bill?: No Do you have trouble taking care of your child, family member or friend?: No Do you have trouble with day-to-day activities such as bathing, preparing meals, shopping, managing finances, etc.?: No Are you currently unemployed and looking for a job?: No Are you interested in more education?: No Please select the resources that you would like help with: None Currently or been in a relationship where the following occur: No concerns reported THRIVE Score: 0 AUDIT C Alcohol Use Questionnaire (AUDIT-C) 1. How often do you have a drink containing alcohol?: 2-3 times a week 2. How many drinks containing alcohol do you have on a typical day when you are drinking?: 1 or 2 3. How often do you have six or more drinks on one occasion?: Never Total Score: 3 Score Reviewed/Action Taken: Yes SANDEEP-7 AMB Questionnaire SANDEEP-7 Date SANDEEP - 7 assessed: 12/18/23 Feeling nervous, anxious, or on edge: 0 = Not at all Not being able to stop or control worryin = Not at all Worrying too much about different things: 0 = Not at all Trouble relaxin = Not at all Being so restless that it is hard to sit still: 0 = Not at all Becoming easily annoyed or irritable: 0 = Not at all Feeling afraid as if something awful might happen: 0 = Not at all Total SANDEEP-7 score (0-4 normal; 5-9 mild; 10-14 moderate; 15-21 severe): 0 Source: Developed by Drs. Jersey Tellez, Lis Andrew, Wm Zhang and colleagues, with an educational viktor from [employer]. Review of Systems Const Denies chills, Denies fatigue, Denies fever(s) and Denies headache(s) ENT Denies dysphagia, Denies dizziness, Denies otalgia, Denies headache(s), Denies neck pain, Denies odynophagia and Denies sore throat Card Denies chest pain, Denies palpitations and Denies dyspnea Resp Denies cough and Denies dyspnea GI Denies abdominal pain, Denies constipation, Denies dysphagia, Denies heartburn, Denies diarrhea, Denies nausea, Denies odynophagia and Denies vomiting Denies dysuria, Denies nocturia and Denies urinary frequency Musc Denies back pain and Denies neck pain Skin/Breast Denies rash Neuro Denies dizziness and Denies headache(s) Endo Denies fatigue and Denies palpitations Physical exam (Primary Care) Vital Signs: Last Vital Signs Pulse 109 H 12/18/23 14:49 BP 142/90 H 12/18/23 14:49 Pulse Ox 96 12/18/23 14:49 Oxygen Delivery Method Room Air 12/18/23 14:49 BMI result Body Mass Index 44.8 Tobacco/Smoking Status: Tobacco use Status Tobacco use date assessed 12/18/23 12/18/23 14:56 Patient Tobacco Use Status Current everyday Tobacco 12/18/23 14:56 e-Cigarette/Vaping Use Never Used 12/18/23 14:56 PHQ-9: PHQ-9 Score PHQ-9: Total score 0 12/18/23 15:25 Depression Screening Interpretation: Negative Thrive Assessment: Date of Thrive Assessment Date Thrive assessed 12/18/23 12/18/23 14:56 Currently or been in a relationship where the following occur: No concerns reported Const General: no acute distress and alert HENMT Ears: TM's normal bilaterally and EAC's normal Throat: Yes posterior oropharynx normal and Yes tonsils normal (no TP congestion) Neck Neck: Yes no lymphadenopathy and Yes supple Thyroid: Thyroid normal Resp Auscultation: clear to auscultation bilaterally, no rales and no wheezes Cardio Rate: regular rate Rhythm: regular rhythm Heart sounds: no murmurs GI Palpation (GI): Soft to palpation and nontender Auscultation: normal bowel sounds General: Yes no CVA tenderness Back/Spine/Pelvis Back: no CVA tenderness Skin Rashes: no rashes Extrem General: Yes no clubbing, cyanosis or edema Office Procedures Flu Questionnaire Does the patient have a severe egg allergy?: No Immunizations Fluarix Triv [id number] (PF) 45 mcg (15 mcg x 3)/0.5 mL IM syringe Performing Provider: Marty Luna MD [facility] Documented (not given) by: JUYD Ruiz on 12/18/23 14:57 Reason Not Given: Patient Refused Results Reviewed Results Reviewed: Laboratory Tests 12/14/23 12/14/23 16:50 16:53 WBC 7.3 Hgb 16.1 Hct 45.7 Plt Count 215 Sodium 138 Potassium 4.6 D Creatinine 0.98 Estimated GFR > 60 Fasting Glucose 127 H Hemoglobin A1c % 5.9 Calcium 9.9 D AST 29 ALT 39 Triglycerides 133 Cholesterol 181 LDL Cholesterol, Calc 105 H HDL Cholesterol 50 25-OH Vitamin D Total 20.4 L TSH 1.11 Ur Specific [place] 1.020 Urine Protein Negative Urine Glucose (UA) Negative Urine Blood Negative Urine Nitrite Negative Ur Leukocyte Esterase Negative Coding Level of Care Code Est Pt Level 4 (66563) Complex EM visit Add On G2211 Diagnoses Mixed hyperlipidemia E78.2 Benign essential hypertension I10 Impaired fasting glucose R73.01 Elevated LFTs R79.89 Vitamin D deficiency E55.9 GERD without esophagitis K21.9 Smoker F17.200 Morbid obesity with BMI of 40.0-44.9, adult E66.01; Z68.41 Assessment & Plan Assessment & Plan (1) Mixed hyperlipidemia: Code(s): E78.2 - Mixed hyperlipidemia Category: Medical Plan: Results of his labs done a few days ago reviewed and discussed with patient - he is advised that his cholesterol levels have improved slightly from previous Reinforced low cholesterol diet Will recheck his labs and fasting lipids in 4 months for follow up (2) Benign essential hypertension: Code(s): I10 - Essential (primary) hypertension Category: Medical Plan: Reinforced low sodium diet - goal is systolic BP of at least 130 mm or less Continue Lisinopril 5 mg QD Patient is reminded to continue monitoring his blood pressure regularly (3) Impaired fasting glucose: Code(s): R73.01 - Impaired fasting glucose Category: Medical Plan: His HgbA1c was at 5.9% on his labs done a few days ago (was previously at 5.7% last year) Reinforced low calorie/low carb diet Will recheck his FBS and HgbA1c in 4 months for follow up (4) Elevated LFTs: Code(s): R79.89 - Other specified abnormal findings of blood chemistry Category: Medical Plan: He is advised that his LFTs are back to normal on his recent labs done a few days ago and that his elevated LFTs are likely related to his weight Have also cautioned patient against drinking too much alcohol or taking too many Tylenol-containing medications Will recheck his LFTs and labs in 4 months for follow up (5) Vitamin D deficiency: Code(s): E55.9 - Vitamin D deficiency, unspecified Category: Medical Plan: Continue Vitamin D3 2000 units QD (6) GERD without esophagitis: Code(s): K21.9 - Gastro-esophageal reflux disease without esophagitis Category: Medical Plan: Reinforced dietary restrictions Continue Famotidine 20 mg Q HS PRN (7) Smoker: Code(s): F17.200 - Nicotine dependence, unspecified, uncomplicated Category: Social Hx Plan: Counseled again on smoking cessation (8) Morbid obesity with BMI of 40.0-44.9, adult: Code(s): E66.01 - Morbid (severe) obesity due to excess calories; Z68.41 - Body mass index [BMI] 40.0-44.9, adult Category: Medical Plan: Reinforced diet/weight loss; exercise is somewhat difficult due to patient's current orthopedic issues Plan Follow up in 4 months Orders: Orders Influenza [id number] Immunization 12/18/23 Z23 - Encounter for immunization Hemoglobin A1c 4 Months R73.01 - Impaired fasting glucose Comprehensive [place]. Panel Fast 4 Months E78.00 - Pure hypercholesterolemia, unspecified Complete Blood Count Auto Diff 4 Months D64.9 - Anemia, unspecified Lipid Panel 4 Months E78.00 - Pure hypercholesterolemia, unspecified UA CC w/rflx Micro + Cult 4 Months R30.0 - Dysuria Vitamin D 25-OH Total 4 Months E55.9 - Vitamin D deficiency, unspecified
== END 2023-12-18 15:35 | disposition home or self-care (01) ==
PROVIDERS: PCP Internal Medicine; Visit Provider Internal Medicine
DX: E78.2 Mixed hyperlipidemia (principal); I10 Essential (primary) hypertension; Z68.41 Body mass index [BMI] 40.0-44.9, adult; E66.813 Obesity, class 3; R73.01 Impaired fasting glucose; E55.9 Vitamin D deficiency, unspecified; K21.9 Gastro-esophageal reflux disease without esophagitis; F17.200 Nicotine dependence, unspecified, uncomplicated

== ENCOUNTER → 2023-12-18 14:47 | Outpatient (BNVA) | payer OTHER, SELFPAY | PROVIDERS: PCP Internal Medicine; Visit Provider Internal Medicine | DX: E78.5 Hyperlipidemia, unspecified (principal); I10 Essential (primary) hypertension; R73.01 Impaired fasting glucose; R79.89 Other specified abnormal findings of blood chemistry; E55.9 Vitamin D deficiency, unspecified; K21.9 Gastro-esophageal reflux disease without esophagitis; E66.01 Morbid (severe) obesity due to excess calories; Z68.41 Body mass index [BMI] 40.0-44.9, adult; F17.200 Nicotine dependence, unspecified, uncomplicated; Z71.3 Dietary counseling and surveillance; Z71.6 Tobacco abuse counseling | CPT/HCPCS: 90471; 96127; 99212 ==

== ENCOUNTER 2024-04-14 09:20 | Outpatient (REF) | payer OTHER, SELFPAY ==
[2024-04-14 09:34] LABS: MANUAL DIFF FLAG NO
[2024-04-14 10:09] LABS: Basophils Percent Auto 0.7 % (0-2); Eosinophils Absolute Auto 0.1 X10*3/uL (0.0-0.4); Eosinophils Percent Auto 2.4 % (0-4); Hemoglobin 15.5 g/dl (14.0-18.0); Imm Gran Abs Auto 0.02 X10*3/uL (0.00-0.03); Imm Gran Pct Auto 0.3 % (0.0-0.4); Lymphocytes Absolute Auto 2.3 X10*3/uL (1.2-4.9); Lymphocytes Percent Auto 39.5 % (20-40); Mean Corpuscular HGB Conc 34.4 g/dl (31.0-36.0); Mean Corpuscular Hemoglobin 32.2 pg (27.0-33.0); Mean Corpuscular Volume 93.6 fL (80.0-98.0); Mean Platelet Volume 10.5 fL (9.4-12.4); Monocytes Absolute Auto 0.5 X10*3/uL (0.1-1.2); Monocytes Percent Auto 8.6 % (2-11); Neutrophils Absolute Auto 2.8 x10*3/uL (2.0-8.3); Neutrophils Percent Auto 48.5 % (45-73); Platelet Count 204 X10*3/uL (160-400); Red Blood Count 4.81 X10*6/uL (4.60-5.80); Red Cell Distribution Width 12.5 % (11.0-16.0); White Blood Count 5.8 X10*3/uL (4.8-10.8)
[2024-04-14 10:47] LABS: Alanine Aminotransferase 63 U/L (0-40); Albumin Level 4.2 g/dL (3.5-5.0); Alkaline Phosphatase 85 U/L (39-117); Anion Gap 11 (12-20); Aspartate Amino Transferase 41 U/L (5-37); Bilirubin Total 0.8 mg/dL (0.0-1.0); Blood Urea Nitrogen 11 mg/dL (9-16); Calcium 9.5 mg/dL (8.4-10.2); Carbon Dioxide 24 mmol/L (22-29); Chloride 104 mmol/L (96-108); Cholesterol 186 mg/dL (<200); Estimated Glomerular Filt Rate > 60; Glucose Fasting 126 mg/dL (60-99); HDL Cholesterol 51 mg/dL (>40); LDL Cholesterol Calculated 91 mg/dL (<100); Potassium 3.9 mmol/L (3.3-5.1); Sodium 135 mmol/L (135-145); Total Protein 7.7 g/dL (6.5-8.0); Triglycerides 222 mg/dL (<150)
[2024-04-14 10:53] LABS: Appearance Urine Clear; Color Urine Dark Yellow; Glucose Urine UA Negative (Negative); Leukocyte Esterase Urine Trace (Negative); Nitrite Urine Negative (Negative); Specific Gravity - Urine >= 1.030 (1.005-1.025); UMIC TRIGGER UACC YES; Urine Blood Negative (Negative); Urine Ketones Trace mg/dL (Negative); Urine Protein Trace mg/dL (Neg-Trace)
[2024-04-14 11:04] LABS: Bacteria Urine None Seen (None Seen); RBC Urine 0-2 /HPF (0-2); Squamous Epithelial Cell Urine 0-2 /HPF (0-2); WBC Urine 0-5 /HPF (0-5)
[2024-04-14 11:09] LABS: Vitamin D 25-OH Total 15.1 ng/mL (>30)
[2024-04-14 11:17] LABS: Estimated Average Glucose 137 mg/dL; Hemoglobin A1C 185.7134 umol/L; Hemoglobin A1c % 6.4 % (<6.0); Total Hemoglobin (HGBA1C) 3967.2981 umol/L
== END 2024-04-14 09:21 | disposition home or self-care (01) ==
LOC: HO.LAB 09:20
PROVIDERS: PCP Internal Medicine; Visit Provider Internal Medicine
DX: R73.01 Impaired fasting glucose (principal); E78.00 Pure hypercholesterolemia, unspecified; D64.9 Anemia, unspecified; E55.9 Vitamin D deficiency, unspecified; R30.0 Dysuria
CPT/HCPCS: 36415; 80053; 80061; 81001; 82306; 83036; 85025

== ENCOUNTER 2024-04-19 14:35 | Outpatient (AMB) | payer OTHER, SELFPAY ==
[2024-04-19 14:52] VITALS: BP 152/90; PULSE 81; O2SAT 98; BMI 46.9
--- NOTE | 2024-04-19 14:52 | A.OFFPC_ITS ---
Vital Signs 04/19/24 14:52 Height 5 ft 8 in Weight 308 lb 4 oz BMI 46.9 BP 152/90 H Blood Pressure Location Lt brachial Position Sitting Pulse 81 Pulse Source Pulse Oximeter Pulse Oximetry (%) 98 Oxygen Delivery Method Room Air Intake Visit Reasons: hyperlipidemia, HTN, IFG, vitamin D deficiency Community [facility] Advocate Required: No Accompanied by: Self / Same As Patient Allergies No Known Allergies [No Known Allergies*] Allergy (Verified 04/19/24 15:18) Medication List - Last Reconciled 04/19/24 by Marty Luna MD bisacodyl (Dulcolax (bisacodyl)) 20 mg (4 x 5 mg) PO ONCE 1 day cholecalciferol (vitamin D3) 50 mcg PO DAILY 90 days clotrimazole 1% 1 appl topical BID 12 weeks famotidine 20 mg PO BEDTIME PRN 90 days lisinopril 5 mg PO DAILY 90 days polyethylene glycol 3350 (Miralax) 238 grams PO ONCE 1 day Tobacco use date assessed: 04/19/24 Dental Screening Dental Screen Date: 04/19/24 Did you have a dental visit in the last 12 months?: No Did you have a dental problem in the last 6 months where you did not have access to dental care?: No Was dental information given to patient?: No HPI hyperlipidemia, HTN, IFG, vitamin D deficiency HPI Details Patient comes in today for his follow-up visit States that he feels okay He denies any headaches or dizziness Denies any chest pains, no shortness of breath No nausea/vomiting, no abdominal pain No change in bowel habits noted Needs his vitamin D Rx refilled He had his follow-up labs done a few days ago - to discuss his results [facility] Medical History Morbid obesity with BMI of 45.0-49.9, adult Morbid obesity with BMI of 40.0-44.9, adult Tinnitus Mixed hyperlipidemia GERD without esophagitis Elevated LFTs Vitamin D deficiency Impaired fasting glucose Benign essential hypertension Hearing loss, bilateral Smoker Surgical History Hx of colonoscopy History of knee surgery (~03/2013) Family History Father Epilepsy Heart attack High blood pressure Mother Diabetes Stroke Social History Housing: Apartment Alcohol intake: current Alcohol intake frequency: holidays/special occasions only Patient Tobacco Use Status: Current everyday Tobacco user Cigarettes Per Day: 10 e-Cigarette/Vaping Use: Never Used Second Hand Smoke Exposure: Yes service: No Current occupational status: unemployed Cognitive needs: No Hearing needs: Yes Vision needs: Yes (glasses) Questionnaire PHQ-9 Over the last 2 weeks, how often have you been bothered by any of the following problems? 1. Little interest or pleasure in doing things: not at all 2. Feeling down, depressed, or hopeless: not at all 3. Trouble falling or staying asleep, or sleeping too much: not at all 4. Feeling tired or having little energy: not at all 5. Poor appetite or overeating: not at all 6. Feeling bad about yourself - or that you are a failure or have let yourself or your family down: not at all 7. Trouble concentrating on things, such as reading the newspaper or watching television: not at all 8. Moving or speaking so slowly that other people could have noticed. Or the opposite - being so fidgety or restless that you have been moving around a lot more than usual: not at all 9. Thoughts that you would be better off or of hurting yourself in some way: not at all Total score: 0 Depression Screening Interpretation: Negative Depression Screening Done: Yes 94835 - PHQ-9 Billing: Yes Source: Developed by Drs. Jersey Tellez, Lis Andrew, Wm Zhang and colleagues, with an educational viktor from [employer]. Thrive Questionnaire Date Thrive assessed: 04/19/24 I am a: Patient What is your living situation today?: I have a steady place to live Within the past 12 months, did the food you bought not last and you didn't have the money to get more?: Never true Within the past 12 months, did you worry whether your food would run out before you got money to buy more?: Never true Do you have trouble paying for medicines?: No Do you have trouble getting transportation to medical appointments?: No Do you have trouble paying your heating and electricity bill?: No Do you have trouble taking care of your child, family member or friend?: No Do you have trouble with day-to-day activities such as bathing, preparing meals, shopping, managing finances, etc.?: No Are you currently unemployed and looking for a job?: No Are you interested in more education?: No Please select the resources that you would like help with: None Currently or been in a relationship where the following occur: No concerns reported THRIVE Score: 0 AUDIT C Alcohol Use Questionnaire (AUDIT-C) 1. How often do you have a drink containing alcohol?: 2-3 times a week 2. How many drinks containing alcohol do you have on a typical day when you are drinking?: 1 or 2 3. How often do you have six or more drinks on one occasion?: Never Total Score: 3 Score Reviewed/Action Taken: Yes SANDEEP-7 AMB Questionnaire SANDEEP-7 Date SANDEEP - 7 assessed: 04/19/24 Feeling nervous, anxious, or on edge: 0 = Not at all Not being able to stop or control worryin = Not at all Worrying too much about different things: 0 = Not at all Trouble relaxin = Not at all Being so restless that it is hard to sit still: 0 = Not at all Becoming easily annoyed or irritable: 0 = Not at all Feeling afraid as if something awful might happen: 0 = Not at all Total SANDEEP-7 score (0-4 normal; 5-9 mild; 10-14 moderate; 15-21 severe): 0 Source: Developed by Drs. Jersey Tellez, Lis Andrew, Wm Zhang and colleagues, with an educational viktor from [employer]. Review of Systems Const Denies chills, Denies fatigue, Denies fever(s) and Denies headache(s) ENT Denies dysphagia, Denies dizziness, Denies otalgia, Denies headache(s), Denies neck pain, Denies odynophagia and Denies sore throat Card Denies chest pain, Denies palpitations and Denies dyspnea Resp Denies cough and Denies dyspnea GI Denies abdominal pain, Denies constipation, Denies dysphagia, Denies heartburn, Denies diarrhea, Denies nausea, Denies odynophagia and Denies vomiting Denies dysuria, Denies nocturia and Denies urinary frequency Musc Denies back pain and Denies neck pain Skin/Breast Denies rash Neuro Denies dizziness and Denies headache(s) Endo Denies fatigue and Denies palpitations Physical exam (Primary Care) Vital Signs: Last Vital Signs Pulse 81 04/19/24 14:52 BP 152/90 H 04/19/24 14:52 Pulse Ox 98 04/19/24 14:52 Oxygen Delivery Method Room Air 04/19/24 14:52 BMI result Body Mass Index 46.9 Tobacco/Smoking Status: Tobacco use Status Tobacco use date assessed 04/19/24 04/19/24 14:54 Patient Tobacco Use Status Current everyday Tobacco 04/19/24 14:54 e-Cigarette/Vaping Use Never Used 04/19/24 14:54 PHQ-9: PHQ-9 Score PHQ-9: Total score 0 04/19/24 15:19 Depression Screening Interpretation: Negative Thrive Assessment: Date of Thrive Assessment Date Thrive assessed 04/19/24 04/19/24 14:54 Currently or been in a relationship where the following occur: No concerns reported Const General: no acute distress and alert HENMT Ears: TM's normal bilaterally and EAC's normal Throat: Yes posterior oropharynx normal and Yes tonsils normal (no TP congestion) Neck Neck: Yes supple and No lymphadenopathy Thyroid: Thyroid normal Resp Auscultation: clear to auscultation bilaterally, no rales and no wheezes Cardio Rate: regular rate Rhythm: regular rhythm Heart sounds: no murmurs GI Palpation (GI): Soft to palpation and nontender Auscultation: normal bowel sounds General: Yes no CVA tenderness Back/Spine/Pelvis Back: no CVA tenderness Thoracic/Lumbar Spine: No lumbar spinal tenderness Skin Rashes: no rashes Extrem General: Yes no clubbing, cyanosis or edema Results Reviewed Results Reviewed: Laboratory Tests 04/14/24 04/14/24 09:31 09:33 WBC 5.8 Hgb 15.5 Hct 45.0 Plt Count 204 Sodium 135 Potassium 3.9 Creatinine 0.87 Estimated GFR > 60 Fasting Glucose 126 H Hemoglobin A1c % 6.4 H Calcium 9.5 AST 41 H ALT 63 H Triglycerides 222 H Cholesterol 186 LDL Cholesterol, Calc 91 HDL Cholesterol 51 25-OH Vitamin D Total 15.1 L Urine pH 5.0 Ur Specific [place] >= 1.030 H Urine Protein Trace Urine Glucose (UA) Negative Urine Blood Negative Urine Nitrite Negative Ur Leukocyte Esterase Trace H Coding Level of Care Code Est Pt Level 4 (97962) Diagnoses Mixed hyperlipidemia E78.2 Benign essential hypertension I10 Impaired fasting glucose R73.01 Elevated LFTs R79.89 Vitamin D deficiency E55.9 GERD without esophagitis K21.9 Smoker F17.200 Morbid obesity with BMI of 45.0-49.9, adult E66.01; Z68.42 Additional Codes PHQ-9 - 79940 - PHQ-9 Billing: Yes ([id number]) Assessment & Plan Assessment & Plan (1) Mixed hyperlipidemia: Code(s): E78.2 - Mixed hyperlipidemia Category: Medical Plan: Results of his labs done a few days ago reviewed and discussed with patient - he is advised that his cholesterol levels have improved again slightly from previous Reinforced low cholesterol diet Will recheck his labs and fasting lipids in 4 months for follow up (2) Benign essential hypertension: Code(s): I10 - Essential (primary) hypertension Category: Medical Plan: Reinforced low sodium diet - goal is systolic BP of at least 130 mm or less Continue Lisinopril 5 mg QD Patient is again reminded to continue monitoring his blood pressure regularly (3) Impaired fasting glucose: Code(s): R73.01 - Impaired fasting glucose Category: Medical Plan: His HgbA1c has increased to 6.4% on his labs done a few days ago (was previously at 5.9% a few months ago), likely due to his recent weight gain Have cautioned patient that HgbA1c of 6.4% puts him right at the doorstep of diabetes if it goes up any further, then he will be a certified diabetic and no longer just borderline and he would like to have to be started on medication(s) for diabetes Reinforced low calorie/low carb diet; exercise as tolerated Will recheck his FBS and HgbA1c again in 4 months for follow up (4) Elevated LFTs: Code(s): R79.89 - Other specified abnormal findings of blood chemistry Category: Medical Plan: He is cautioned that his LFTs have increased again and are both elevated on his recent labs done a few days ago Advised that this is likely due to his recent significant weight gain Have also cautioned patient against drinking too much alcohol or taking too many Tylenol-containing medications Will recheck his LFTs and labs in 4 months for follow up (5) Vitamin D deficiency: Code(s): E55.9 - Vitamin D deficiency, unspecified Category: Medical Plan: Continue Vitamin D3 2000 units QD (6) GERD without esophagitis: Code(s): K21.9 - Gastro-esophageal reflux disease without esophagitis Category: Medical Plan: Reinforced dietary restrictions Continue Famotidine 20 mg Q HS PRN (7) Smoker: Code(s): F17.200 - Nicotine dependence, unspecified, uncomplicated Category: Social Hx Plan: Patient is counseled again on smoking cessation (8) Morbid obesity with BMI of 45.0-49.9, adult: Code(s): E66.01 - Morbid (severe) obesity due to excess calories; Z68.42 - Body mass index [BMI] 45.0-49.9, adult Category: Medical Plan: Reinforced diet/weight loss; exercise is somewhat difficult due to patient's current orthopedic issues He is cautioned that he has gained about 14 lbs since his last visit Plan Follow up in 4 months Orders: Orders Complete Blood Count Auto Diff 4 Months D64.9 - Anemia, unspecified Comprehensive [place]. Panel Fast 4 Months E78.00 - Pure hypercholesterolemia, unspecified Hemoglobin A1c 4 Months E11.9 - Type 2 diabetes mellitus without complications Microalbumin, Random (w Creat) 4 Months E11.9 - Type 2 diabetes mellitus without complications UA CC w/rflx Micro + Cult 4 Months R30.0 - Dysuria Lipid Panel 4 Months E78.00 - Pure hypercholesterolemia, unspecified TSH reflex Free T4 4 Months E78.00 - Pure hypercholesterolemia, unspecified Vitamin D 25-OH Total 4 Months E55.9 - Vitamin D deficiency, unspecified Medications: Refilled cholecalciferol (vitamin D3) 50 mcg PO DAILY 90 days 90 caps 3RF E55.9 - Vitamin D deficiency, unspecified, M67.432 - Ganglion, left wrist
== END 2024-04-19 15:27 | disposition home or self-care (01) ==
PROVIDERS: PCP Internal Medicine; Visit Provider Internal Medicine
DX: E78.2 Mixed hyperlipidemia (principal); I10 Essential (primary) hypertension; R73.01 Impaired fasting glucose; R79.89 Other specified abnormal findings of blood chemistry; E55.9 Vitamin D deficiency, unspecified; K21.9 Gastro-esophageal reflux disease without esophagitis; F17.200 Nicotine dependence, unspecified, uncomplicated; E66.01 Morbid (severe) obesity due to excess calories; Z68.42 Body mass index [BMI] 45.0-49.9, adult

== ENCOUNTER → 2024-04-19 14:35 | Outpatient (BNVA) | payer OTHER, SELFPAY | PROVIDERS: PCP Internal Medicine; Visit Provider Internal Medicine | DX: E78.2 Mixed hyperlipidemia (principal); I10 Essential (primary) hypertension; R73.01 Impaired fasting glucose; R79.89 Other specified abnormal findings of blood chemistry; E55.9 Vitamin D deficiency, unspecified; K21.9 Gastro-esophageal reflux disease without esophagitis; E66.01 Morbid (severe) obesity due to excess calories; Z68.42 Body mass index [BMI] 45.0-49.9, adult; Z71.3 Dietary counseling and surveillance; F17.200 Nicotine dependence, unspecified, uncomplicated; Z71.6 Tobacco abuse counseling | CPT/HCPCS: 96127; 99212 ==

== ENCOUNTER 2024-05-13 17:28 | Emergency (ER) | payer OTHER, SELFPAY ==
--- NOTE | ~2024-05-13 | CT_ITS ---
CLINICAL HISTORY: fall off ladder, head strike CT cervical spine without contrast Comparison: None Findings: Normal alignment. No fracture. Incomplete fusion of the posterior arch of C1. No severe central spinal canal stenosis. No epidural hematoma. Normal thickness of the prevertebral soft tissues. The lung apices are clear. Impression: No acute findings. This document has been electronically signed by: Marguerite Ledezma MD on 05/13/2024 19:56:53
--- NOTE | ~2024-05-13 | CT_ITS ---
CLINICAL HISTORY: trauma CT chest without contrast Comparison: None Findings: No mediastinal mass or lymphadenopathy. Unremarkable heart and thoracic aorta. Mild calcified atherosclerotic disease in the abdomen. No acute pulmonary parenchymal or airway pathology. 9 mm thin-walled pulmonary cyst in the right upper lobe. No pneumothorax or pleural effusion. No acute osseous or soft tissue abnormality. No acute pathology in the imaged portion of the upper abdomen. Hepatic steatosis. Left adrenal adenoma measuring 2.3 cm Impression: No acute findings. This document has been electronically signed by: Marguerite Ledezma MD on 05/13/2024 20:05:39
--- NOTE | ~2024-05-13 | XR_ITS ---
CLINICAL HISTORY: trauma Radiographs of the right foot, 3 views Comparison: None Findings: No fracture or dislocation. The joint spaces are preserved without osteophytosis. Small calcaneal spur. Bone mineralization is normal. Soft tissue swelling. Impression: No fracture. This document has been electronically signed by: Marguerite Ledezma MD on 05/13/2024 20:24:10
--- NOTE | ~2024-05-13 | XR_ITS ---
CLINICAL HISTORY: fall off ladder, pain Radiographs of the right elbow, 3 views Comparison: None Findings: No fracture or dislocation. Mild degenerative change. Bone mineralization is normal. No joint effusion.Soft tissue swelling. Impression: No fracture. This document has been electronically signed by: Marguerite Ledezma MD on 05/13/2024 20:25:08
--- NOTE | ~2024-05-13 | XR_ITS ---
CLINICAL HISTORY: fall off ladder, pain Radiographs of the right knee, 4 views, 5 images Comparison: 02/13/22 Findings: There is no fracture or dislocation. No joint space narrowing or osteophytosis. Bone mineralization is normal. No knee joint effusion. Soft tissue swelling. Soft tissue calcifications. Impression: No fracture or joint effusion. This document has been electronically signed by: Marguerite Ledezma MD on 05/13/2024 20:26:34
--- NOTE | ~2024-05-13 | CT_ITS ---
CLINICAL HISTORY: fall off ladder, head strike CT head without contrast Comparison: None Findings: No acute hemorrhage. No extra-axial fluid collection. No hydrocephalus, mass-effect or herniation. Renner-white differentiation is maintained. White matter is within normal limits for age. No acute orbital pathology. No acute soft tissue abnormality. No fracture. The visualized paranasal sinuses are predominantly clear. The mastoid air cells are clear. Impression: No acute findings. This document has been electronically signed by: Marguerite Ledezma MD on 05/13/2024 20:06:50
--- NOTE | ~2024-05-13 | XR_ITS ---
CLINICAL HISTORY: trauma Radiographs of the right tibia/fibula, 2 views Comparison: None Findings: No fracture or dislocation. No degenerative change. Bone mineralization is normal. Soft tissue calcifications. Soft tissue swelling. Impression: No fracture. This document has been electronically signed by: Marguerite Ledezma MD on 05/13/2024 20:24:39
[2024-05-13 17:31] VITALS: BP 148/92; PULSE 90; RESP 18; TEMP 36.8; O2SAT 92; BMI 45.6
--- NOTE | 2024-05-13 17:37 | ED_ITS ---
HPI - General Adult General Chief complaint: Trauma Stated complaint: fell off ladder,right ankle ,knee pain Time Seen by Provider: 05/13/24 17:50 Source: patient Limitations: no limitations History of Present Illness ED Provider: Rach Rabago PA-C HPI narrative: 48-year-old morbidly obese male with a history of hypertension, hyperlipidemia, who presents after fall from a ladder. Patient states he was on a ladder at approximately 7-8 feet, when he lost his balance, falling, landing directly on his feet, then subsequently fell onto his right side. The patient denies head strike. Denies loss of consciousness. Patient primarily complains of right lower extremity pain the foot to the knee. Patient also states the bottom of the ladder hit him in the chest. He has left anterior chest discomfort at this time, where he was hit with a ladder. Patient is not on a blood thinner. Denies neck pain, weakness of upper extremities, dizziness, nausea vomiting or headache. Related Data Previous Rx's ?Medication ?Instructions ?Recorded clotrimazole 1 % topical solution 1 appl topical BID 12 weeks #60 mL 03/31/23 bisacodyl 5 mg tablet,delayed 20 mg (4 x 5 mg) PO ONCE 1 day #4 07/21/23 release (Dulcolax (bisacodyl)) tabs polyethylene glycol 3350 17 238 g PO ONCE 1 day #238 grams 07/21/23 gram/dose oral powder (Miralax) famotidine 20 mg tablet 20 mg PO BEDTIME PRN heartburn 90 11/03/23 days #90 tabs lisinopril 5 mg tablet 5 mg PO DAILY 90 days #90 tabs 11/03/23 cholecalciferol (vitamin D3) 50 50 mcg PO DAILY 90 days #90 caps 04/19/24 mcg (2,000 unit) capsule meloxicam 15 mg tablet 15 mg PO DAILY #7 tabs 05/13/24 methocarbamol 750 mg tablet 1,500 mg (2 x 750 mg) PO Q8H PRN 05/13/24 pain, moderate #20 tabs Allergies Allergy/AdvReac Type Severity Reaction Status Date / Time No Known Allergies Allergy Verified 05/13/24 17:34 [No Known Allergies*] Review of Systems 2 Review of Systems: Yes all other systems are reviewed and are negative Constitutional: Constitutional: Denies fatigue, Denies fever(s) and Denies headache(s) ENT: Denies dizziness, Denies headache(s) and Denies neck pain Cardiovascular: Cardiovascular: Reports chest pain and Denies dyspnea Respiratory: Respiratory: Denies dyspnea Gastrointestinal: Gastrointestinal: Denies abdominal pain, Denies nausea and Denies vomiting Musculoskeletal: Musculoskeletal: Denies back pain, Reports myalgias, Reports arthralgias, Denies joint swelling, Denies muscle weakness, Denies neck pain, Denies numbness, Denies radiating pain into limb and Denies tingling Neurologic: Denies dizziness, Denies headache(s), Denies numbness and Denies tingling Endocrine: Endocrine: Denies fatigue PMFSH Past Medical History Attestation statement: The following information was validated with the patient. Medical History Morbid obesity with BMI of 45.0-49.9, adult Morbid obesity with BMI of 40.0-44.9, adult Tinnitus Mixed hyperlipidemia GERD without esophagitis Elevated LFTs Vitamin D deficiency Impaired fasting glucose Benign essential hypertension Hearing loss, bilateral Smoker Surgical History Hx of colonoscopy History of knee surgery (~03/2013) Family History Family History Father Epilepsy Heart attack High blood pressure Mother Diabetes Stroke Social History Social History Housing: Apartment Alcohol intake: current Alcohol intake frequency: holidays/special occasions only Patient Tobacco Use Status: Current everyday Tobacco user Cigarettes Per Day: 10 e-Cigarette/Vaping Use: Never Used Second Hand Smoke Exposure: Yes Advance Directives: No Advance Directives Information Provided: No Do you have a plan to hurt others: No Plan service: No Current occupational status: unemployed Cognitive needs: No Hearing needs: Yes Vision needs: Yes (glasses) Physical Exam ED Vital Signs: Vital Signs - 24 hr 05/13/24 17:31 05/13/24 20:00 Temperature 98.2 F 97.5 F Pulse Rate 90 78 Respiratory Rate 18 14 Blood Pressure 148/92 H 133/98 H Pulse Oximetry 92 96 Oxygen Delivery Method Room Air Room Air BMI result Body Mass Index 45.6 Const Other: Alert, no sign of head trauma on exam Orientation/consciousness: patient oriented x3 Neck Other: In a C-collar Chest Other: Minimal tenderness to palpation over anterior chest wall no deformity noted Resp Effort & Inspection: normal respiratory effort Cardio Other: Normal peripheral perfusion Skin Other: Warm dry no rash Neuro General: patient oriented x3, no focal motor deficits and CN's II-XI intact bilaterally Extrem Other: Full flexion and extension of the elbow, no deformity. Patient able to flex and extend from the right knee. Palpable pain mid frazier, no deformity, able to flex and extend from the ankle, no deformity noted over the foot, pain most prominent over the heel Psych Other: Cooperative Course Course Course Narrative: RME performed by Cha Lara PA-C. Patient is a 48 year old assigned male at presenting to the emergency department with right sided pain after falling off of an 8 foot ladder. Patient states he was high on the 8 foot ladder when the wind caught him and caused him to fall over onto his right side. Patient states that his right chest, elbow, and knee hurt. Patient states that he did not lose consciousness. Detailed physical exam and review of systems are deferred to the real estate closing coordinator. EKG, labs, imaging ordered. microsoft crm developer aware of patient. Medications Administered Discontinued Medications Generic Name Dose Route Start Last Admin Trade Name Freq PRN Reason Stop Dose Admin Morphine Sulfate 4 mg 05/13/24 18:13 05/13/24 18:58 Morphine Sulfate 4 Mg/Ml Cartridge IVPUSH 05/13/24 18:14 4 mg ONCE ONE Administration Protocol Medical Decision Making Medical Decision Making MDM Narrative: 48-year-old morbidly obese male with a history of hypertension, hyperlipidemia, who presents after fall from a ladder. Patient states he was on a ladder at approximately 7-8 feet, when he lost his balance, falling, landing directly on his feet, then subsequently fell onto his right side. The patient denies head strike. Denies loss of consciousness. Patient primarily complains of right lower extremity pain the foot to the knee. Patient also states the bottom of the ladder hit him in the chest. He has left anterior chest discomfort at this time, where he was hit with a ladder. Patient is not on a blood thinner. Denies neck pain, weakness of upper extremities, dizziness, nausea vomiting or headache. Problem: Morbid obesity History: Per patient I have considered the following differential diagnoses: Intracranial hemorrhage, cervical spine injury, rib fracture, fracture, dislocation of the extremities Plan: Don scan was ordered from triage, I do not feel he requires CT scan of the abdomen. I will keep the CT scan of the chest given the patient states he is having difficulty standing and bearing weight due to the extreme foot pain, this would be difficult to obtain x-rays for rib fracture protocol. X-rays were ordered from triage, I am adding additional imaging. We will be giving morphine for the patient's pain. At the end of the day, I have low suspicion for any injury. In reality, the patient is over 5 ft tall, he essentially fell 3-4 feet, down onto his feet. Screening labs were ordered from triage as well. I have independently reviewed the following tests: CT brain: CT head without contrast Comparison: None Findings: No acute hemorrhage. No extra-axial fluid collection. No hydrocephalus, mass-effect or herniation. Renner-white differentiation is maintained. White matter is within normal limits for age. No acute orbital pathology. No acute soft tissue abnormality. No fracture. The visualized paranasal sinuses are predominantly clear. The mastoid air cells are clear. Impression: No acute findings. CT cervical spine:CT cervical spine without contrast Comparison: None Findings: Normal alignment. No fracture. Incomplete fusion of the posterior arch of C1. No severe central spinal canal stenosis. No epidural hematoma. Normal thickness of the prevertebral soft tissues. The lung apices are clear. Impression: No acute findings. CT chest: CT chest without contrast Comparison: None Findings: No mediastinal mass or lymphadenopathy. Unremarkable heart and thoracic aorta. Mild calcified atherosclerotic disease in the abdomen. No acute pulmonary parenchymal or airway pathology. 9 mm thin-walled pulmonary cyst in the right upper lobe. No pneumothorax or pleural effusion. No acute osseous or soft tissue abnormality. No acute pathology in the imaged portion of the upper abdomen. Hepatic steatosis. Left adrenal adenoma measuring 2.3 cm Impression: No acute findings. X-ray right elbow: Radiographs of the right elbow, 3 views Comparison: None Findings: No fracture or dislocation. Mild degenerative change. Bone mineralization is normal. No joint effusion.Soft tissue swelling. Impression: No fracture. X-ray right knee:Radiographs of the right knee, 4 views, 5 images Comparison: 02/13/22 Findings: There is no fracture or dislocation. No joint space narrowing or osteophytosis. Bone mineralization is normal. No knee joint effusion. Soft tissue swelling. Soft tissue calcifications. Impression: No fracture or joint effusion. X-ray right tib-fib: Radiographs of the right tibia/fibula, 2 views Comparison: None Findings: No fracture or dislocation. No degenerative change. Bone mineralization is normal. Soft tissue calcifications. Soft tissue swelling. Impression: No fracture. X-ray right foot:Radiographs of the right foot, 3 views Comparison: None Findings: No fracture or dislocation. The joint spaces are preserved without osteophytosis. Small calcaneal spur. Bone mineralization is normal. Soft tissue swelling. Impression: No fracture. Lab Data 05/13/24 17:54 05/13/24 17:54 Labs: Lab Results 05/13/24 05/13/24 Range/Units 17:54 17:55 WBC 6.0 (4.8-10.8) X10*3/uL RBC 4.81 (4.60-5.80) X10*6/uL Hgb 15.7 (14.0-18.0) g/dl Hct 44.1 (42.0-52.0) % MCV 91.7 (80.0-98.0) fL MCH 32.6 (27.0-33.0) pg MCHC 35.6 (31.0-36.0) g/dl RDW 12.7 (11.0-16.0) % Plt Count 200 (160-400) X10*3/uL MPV 10.2 (9.4-12.4) fL Immature Gran % (Auto) 0.3 (0.0-0.4) % Neut % (Auto) 59.8 (45-73) % Lymph % (Auto) 28.3 (20-40) % [place] % (Auto) 10.0 (2-11) % Eos % (Auto) 1.3 (0-4) % Baso % (Auto) 0.3 (0-2) % Lymph # (Auto) 1.7 (1.2-4.9) X10*3/uL [place] # (Auto) 0.6 (0.1-1.2) X10*3/uL Eos # (Auto) 0.1 (0.0-0.4) X10*3/uL Baso # (Auto) 0.0 (0.0-0.2) X10*3/uL Abs Immat Gran (auto) 0.02 (0.00-0.03) X10*3/uL Absolute Neuts (auto) 3.6 (2.0-8.3) x10*3/uL Absolute Nucleated RBC 0.000 (0.0-0.012) X10*3/uL Nucleated RBC % (auto) 0.0 (0.0-0.2) /100WBC Hold Purple Top SEE NOTE PT 11.9 (10.9-12.4) SEC INR 1.0 (0.9-1.1) Sodium 139 (135-145) mmol/L Potassium 3.7 (3.3-5.1) mmol/L Chloride 109 H (96-108) mmol/L Carbon Dioxide 21 L (22-29) mmol/L Anion Gap 13 (12-20) BUN 14 (9-16) mg/dL Creatinine 0.83 (0.5-1.4) mg/dL Estim Creat Clear Calc 145.3 Estimated GFR > 60 Random Glucose 135 H (60-115) mg/dL Calcium 9.1 (8.4-10.2) mg/dL Magnesium 2.0 (1.6-2.6) mg/dL Total Bilirubin 0.7 (0.0-1.0) mg/dL AST 39 H (5-37) U/L ALT 44 H (0-40) U/L Alkaline Phosphatase 94 (39-117) U/L Total Protein 7.8 (6.5-8.0) g/dL Albumin 4.2 (3.5-5.0) g/dL Blood Type A Positive Antibody Screen NEGATIVE Discharge Plan Discharge Clinical Impression: Contusion of foot, right Patient Disposition: Home, Self-Care Instructions: Foot Contusion (ED) Additional Instructions: CT scans were obtained of your brain, neck and chest, they were all normal. X- rays were obtained of the right elbow, right knee, right frazier, right foot, all the x-rays were negative for fracture. You have a contusion, or fancy word for a bone bruise. See home care instructions. Use the crutches as needed to ambulate, bear weight as tolerated. Use the walking boot as needed. Use the methocarbamol, this is a muscle relaxant, for your pain, to note it will cause drowsiness, do not drive or operate machinery while taking the medication. Use the meloxicam, this is an anti-inflammatory, as directed take it with food. Follow up with your primary care provider next week. Prescriptions: New methocarbamol 750 mg tablet 1,500 mg PO Q8H PRN (Reason: pain, moderate) Qty: 20 0RF meloxicam 15 mg tablet 15 mg PO DAILY Qty: 7 0RF No Action bisacodyl [Dulcolax (bisacodyl)] 5 mg tablet,delayed release (DR/EC) 20 mg PO ONCE 1 Days Qty: 4 0RF Rx Instructions: take at noon the day before colonoscopy polyethylene glycol 3350 [Miralax] 17 gram/dose powder 238 g PO ONCE 1 Days Qty: 238 0RF Rx Instructions: Take as directed by mouth the day before your procedure. famotidine 20 mg tablet 20 mg PO BEDTIME PRN (Reason: heartburn) 90 Days Qty: 90 1RF lisinopril 5 mg tablet 5 mg PO DAILY 90 Days Qty: 90 1RF clotrimazole 1 % solution 1 appl topical BID 84 Days Qty: 60 0RF cholecalciferol (vitamin D3) 50 mcg (2,000 unit) capsule 50 mcg PO DAILY 90 Days Qty: 90 3RF Print Language: Faroese
--- NOTE | 2024-05-13 17:39 | ECG_ITS ---
Test Reason : fall Blood Pressure : */* mmHG Vent. Rate : 95 BPM Atrial Rate : 95 BPM P-R Int : 152 ms QRS Dur : 90 ms QT Int : 344 ms P-R-T Axes : 53 14 56 degrees QTcB Int : 432 ms Normal sinus rhythm with sinus arrhythmia Normal ECG No previous ECGs available Referred By: Cha Lara Electronically Signed By: ALISON BORREGO MD
[2024-05-13 17:58] LABS: MANUAL DIFF FLAG NO
[2024-05-13 18:01] LABS: Basophils Percent Auto 0.3 % (0-2); Eosinophils Absolute Auto 0.1 X10*3/uL (0.0-0.4); Eosinophils Percent Auto 1.3 % (0-4); Hematocrit 44.1 % (42.0-52.0); Hemoglobin 15.7 g/dl (14.0-18.0); Imm Gran Abs Auto 0.02 X10*3/uL (0.00-0.03); Imm Gran Pct Auto 0.3 % (0.0-0.4); Lymphocytes Absolute Auto 1.7 X10*3/uL (1.2-4.9); Lymphocytes Percent Auto 28.3 % (20-40); Mean Corpuscular HGB Conc 35.6 g/dl (31.0-36.0); Mean Corpuscular Hemoglobin 32.6 pg (27.0-33.0); Mean Corpuscular Volume 91.7 fL (80.0-98.0); Mean Platelet Volume 10.2 fL (9.4-12.4); Monocytes Absolute Auto 0.6 X10*3/uL (0.1-1.2); Neutrophils Absolute Auto 3.6 x10*3/uL (2.0-8.3); Neutrophils Percent Auto 59.8 % (45-73); Platelet Count 200 X10*3/uL (160-400); Red Blood Count 4.81 X10*6/uL (4.60-5.80); Red Cell Distribution Width 12.7 % (11.0-16.0)
[2024-05-13 18:15] LABS: Alanine Aminotransferase 44 U/L (0-40); Albumin Level 4.2 g/dL (3.5-5.0); Alkaline Phosphatase 94 U/L (39-117); Anion Gap 13 (12-20); Aspartate Amino Transferase 39 U/L (5-37); Bilirubin Total 0.7 mg/dL (0.0-1.0); Blood Urea Nitrogen 14 mg/dL (9-16); Calcium 9.1 mg/dL (8.4-10.2); Carbon Dioxide 21 mmol/L (22-29); Chloride 109 mmol/L (96-108); Creatinine Clr Calc Pharmacy 145.3; Estimated Glomerular Filt Rate > 60; Glucose Random 135 mg/dL (60-115); Potassium 3.7 mmol/L (3.3-5.1); Sodium 139 mmol/L (135-145); Total Protein 7.8 g/dL (6.5-8.0)
[2024-05-13 18:19] LABS: Prothrombin Time 11.9 SEC (10.9-12.4)
[2024-05-13] MEDS: Morphine Sulfate 4 MG/ML CARTRIDGE IVPUSH (18:58)
[2024-05-13 20:00] VITALS: BP 133/98; PULSE 78; RESP 14; TEMP 36.4; O2SAT 96
--- NOTE | 2024-05-13 20:11 | MHC.EDTECH ---
This tech took over care of pt at 1900, rounded and introduced self to pt, vitals taken, pt is c-collared pt appears comfortable,call cevallos in reach
--- NOTE | 2024-05-13 20:41 | MHC.EDTECH ---
Per Sofía MALHOTRA 2nd Type is not needed,RN aware
[2024-05-13 22:43] VITALS: BP 133/98; PULSE 78; RESP 14; TEMP 36.4; O2SAT 96
== END 2024-05-13 22:43 | disposition home or self-care (01) ==
PROVIDERS: Physician Assistant Medical; Emergency Provider Emergency Medicine Emergency Medical Services; PCP Internal Medicine
DX: S90.31XA Contusion of right foot, initial encounter (principal); R07.89 Other chest pain; E66.01 Morbid (severe) obesity due to excess calories; I10 Essential (primary) hypertension; E78.5 Hyperlipidemia, unspecified; W11.XXXA Fall on and from ladder, initial encounter; Y93.9 Activity, unspecified; Y92.9 Unspecified place or not applicable; Y99.9 Unspecified external cause status
CPT/HCPCS: 36415; 70450; 71250; 72125; 73080; 73562; 73590; 73630; 80053; 83735; 85025; 85610; 86850; 86900; 86901; 93005; 96374; 99284; J2270

== ENCOUNTER → 2024-05-13 17:39 | Outpatient (BNV) | payer OTHER, SELFPAY | PROVIDERS: Emergency Provider Emergency Medicine Emergency Medical Services; PCP Internal Medicine; Visit Provider Radiology Diagnostic Radiology | DX: M25.561 Pain in right knee (principal); M25.521 Pain in right elbow; M79.604 Pain in right leg; M25.571 Pain in right ankle and joints of right foot; R07.89 Other chest pain; Z03.89 Encounter for observation for other suspected diseases and conditions ruled out; W11.XXXA Fall on and from ladder, initial encounter | CPT/HCPCS: 70450; 71250; 72125; 73080; 73562; 73590; 73630 ==

== ENCOUNTER → 2024-05-13 17:39 | Outpatient (BNV) | payer OTHER, SELFPAY | PROVIDERS: Emergency Provider Emergency Medicine Emergency Medical Services; PCP Internal Medicine; Visit Provider Internal Medicine Cardiovascular Disease | DX: I10 Essential (primary) hypertension (principal); E78.5 Hyperlipidemia, unspecified | CPT/HCPCS: 93010 ==

== ENCOUNTER 2024-08-31 15:22 | Outpatient (REF) | payer OTHER, SELFPAY ==
[2024-08-31 15:35] LABS: MANUAL DIFF FLAG NO
[2024-08-31 15:58] LABS: Appearance Urine Clear; Color Urine Yellow; Glucose Urine UA Negative (Negative); Leukocyte Esterase Urine Negative (Negative); Nitrite Urine Negative (Negative); Specific Gravity - Urine >= 1.030 (1.005-1.025); Urine Blood Negative (Negative); Urine Ketones Negative (Negative); Urine Protein Trace mg/dL (Neg-Trace)
[2024-08-31 16:07] LABS: Basophils Percent Auto 0.7 % (0-2); Eosinophils Absolute Auto 0.2 X10*3/uL (0.0-0.4); Eosinophils Percent Auto 3.2 % (0-4); Hematocrit 46.7 % (42.0-52.0); Hemoglobin 15.7 g/dl (14.0-18.0); Imm Gran Abs Auto 0.01 X10*3/uL (0.00-0.03); Imm Gran Pct Auto 0.2 % (0.0-0.4); Lymphocytes Absolute Auto 2.1 X10*3/uL (1.2-4.9); Mean Corpuscular HGB Conc 33.6 g/dl (31.0-36.0); Mean Corpuscular Hemoglobin 31.9 pg (27.0-33.0); Mean Corpuscular Volume 94.9 fL (80.0-98.0); Mean Platelet Volume 10.3 fL (9.4-12.4); Monocytes Absolute Auto 0.6 X10*3/uL (0.1-1.2); Monocytes Percent Auto 10.7 % (2-11); Neutrophils Absolute Auto 2.7 x10*3/uL (2.0-8.3); Neutrophils Percent Auto 48.2 % (45-73); Platelet Count 191 X10*3/uL (160-400); Red Blood Count 4.92 X10*6/uL (4.60-5.80); White Blood Count 5.6 X10*3/uL (4.8-10.8)
[2024-08-31 16:23] LABS: Creatinine Urine 430.23 mg/dL; Microalbum/Creatinine Ratio Ur 4.6 ug/mg cr (<30)
[2024-08-31 16:33] LABS: Alanine Aminotransferase 57 U/L (0-40); Albumin Level 4.5 g/dL (3.5-5.0); Alkaline Phosphatase 87 U/L (39-117); Anion Gap 12 (12-20); Aspartate Amino Transferase 46 U/L (5-37); Bilirubin Total 0.9 mg/dL (0.0-1.0); Blood Urea Nitrogen 12 mg/dL (9-16); Calcium 9.5 mg/dL (8.4-10.2); Carbon Dioxide 26 mmol/L (22-29); Chloride 109 mmol/L (96-108); Cholesterol 181 mg/dL (<200); Estimated Glomerular Filt Rate > 60; Glucose Fasting 120 mg/dL (60-99); HDL Cholesterol 51 mg/dL (>40); LDL Cholesterol Calculated 92 mg/dL (<100); Potassium 4.1 mmol/L (3.3-5.1); Sodium 143 mmol/L (135-145); Total Protein 7.4 g/dL (6.5-8.0); Triglycerides 190 mg/dL (<150)
[2024-08-31 16:43] LABS: TSH reflex Free T4 0.93 uIU/mL (0.32-4.0); Vitamin D 25-OH Total 15.3 ng/mL (>30)
[2024-08-31 18:12] LABS: Estimated Average Glucose 140 mg/dL; Hemoglobin A1c % 6.5 % (<6.0)
== END 2024-08-31 15:23 | disposition home or self-care (01) ==
LOC: HO.LAB 15:22
PROVIDERS: PCP Internal Medicine; Visit Provider Internal Medicine
DX: D64.9 Anemia, unspecified (principal); E78.00 Pure hypercholesterolemia, unspecified; E11.9 Type 2 diabetes mellitus without complications; R30.0 Dysuria; E55.9 Vitamin D deficiency, unspecified
CPT/HCPCS: 36415; 80053; 80061; 81003; 82043; 82306; 82570; 83036; 84443; 85025

== ENCOUNTER 2024-09-02 14:40 | Outpatient (AMB) | payer OTHER, SELFPAY ==
[2024-09-02 14:42] VITALS: BP 136/82; PULSE 93; O2SAT 96; BMI 47.3
--- NOTE | 2024-09-02 14:42 | MHC.PC.OV ---
Vital Signs 09/02/24 14:42 Height 5 ft 8 in Weight 311 lb BMI 47.3 BP 136/82 Blood Pressure Location Lt brachial Position Sitting Pulse 93 Pulse Source Pulse Oximeter Pulse Oximetry (%) 96 Oxygen Delivery Method Room Air Intake Visit Reasons: hyperlipidemia, HTN, IFG Motion Picture Director Required: No Accompanied by: Self / Same As Patient Allergies No Known Allergies (No Known Allergies*) Allergy (Verified 09/02/24 15:10) Medication List - Last Reconciled 09/02/24 by Marty Luna MD bisacodyl (Dulcolax (bisacodyl)) 20 mg (4 x 5 mg) PO ONCE 1 day cholecalciferol (vitamin D3) 50 mcg PO DAILY 90 days clotrimazole 1% 1 appl topical BID 12 weeks famotidine 20 mg PO BEDTIME PRN 90 days lisinopril 5 mg PO DAILY 90 days meloxicam 15 mg PO DAILY methocarbamol 1,500 mg (2 x 750 mg) PO Q8H PRN polyethylene glycol 3350 (Miralax) 238 grams PO ONCE 1 day Tobacco use date assessed: 09/02/24 Dental Screening Dental Screen Date: 09/02/24 Did you have a dental visit in the last 12 months?: No Did you have a dental problem in the last 6 months where you did not have access to dental care?: No Was dental information given to patient?: Patient has dentist HPI hyperlipidemia, HTN, IFG HPI Details Patient comes in today for his follow-up visit States that he feels okay except for increased pain in his right knee and right foot lately - states that these are likely the reason that his right leg often tends to give out on his and was partially the reason for his fall down a ladder a few weeks ago He was seen at the ER for further evaluation after his fall and x-rays done at the ER all came back negative He denies any headaches or dizziness Denies any chest pains, no shortness of breath No nausea/vomiting, no abdominal pain No change in bowel habits noted He had his follow-up labs done a couple of days ago - to discuss his results [facility] Medical History Morbid obesity with BMI of 45.0-49.9, adult Morbid obesity with BMI of 40.0-44.9, adult Tinnitus Mixed hyperlipidemia GERD without esophagitis Elevated LFTs Vitamin D deficiency Impaired fasting glucose Benign essential hypertension Hearing loss, bilateral Smoker Surgical History Hx of colonoscopy History of knee surgery (~03/2013) Family History Father Epilepsy Heart attack High blood pressure Mother Diabetes Stroke Social History Housing: Apartment Alcohol intake: current Alcohol intake frequency: holidays/special occasions only Patient Tobacco Use Status: Current everyday Tobacco user Cigarettes Per Day: 10 e-Cigarette/Vaping Use: Never Used Second Hand Smoke Exposure: Yes service: No Current occupational status: unemployed Current occupational exposures/hazards: No Cognitive needs: No Hearing needs: Yes Vision needs: Yes (glasses) Questionnaire PHQ-9 Over the last 2 weeks, how often have you been bothered by any of the following problems? 1. Little interest or pleasure in doing things: not at all 2. Feeling down, depressed, or hopeless: nearly every day 3. Trouble falling or staying asleep, or sleeping too much: nearly every day 4. Feeling tired or having little energy: nearly every day 5. Poor appetite or overeating: nearly every day 6. Feeling bad about yourself - or that you are a failure or have let yourself or your family down: not at all 7. Trouble concentrating on things, such as reading the newspaper or watching television: nearly every day 8. Moving or speaking so slowly that other people could have noticed. Or the opposite - being so fidgety or restless that you have been moving around a lot more than usual: not at all 9. Thoughts that you would be better off or of hurting yourself in some way: not at all Total score: 15 Depression Screening Interpretation: Positive Depression Screening Follow-up: Existing condition and Follow-up Visit Requested Depression Screening Done: Yes 18387 - PHQ-9 Billing: Yes Source: Developed by Drs. Jersey Tellez, Lis Andrew, Wm Zhang and colleagues, with an educational viktor from [employer]. Thrive Questionnaire Date Thrive assessed: 09/02/24 I am a: Patient What is your living situation today?: I have a steady place to live Within the past 12 months, did the food you bought not last and you didn't have the money to get more?: Sometimes True Within the past 12 months, did you worry whether your food would run out before you got money to buy more?: Sometimes True Do you have trouble paying for medicines?: Yes Do you have trouble getting transportation to medical appointments?: Yes Do you have trouble paying your heating and electricity bill?: Yes Do you have trouble taking care of your child, family member or friend?: No Do you have trouble with day-to-day activities such as bathing, preparing meals, shopping, managing finances, etc.?: Yes Are you currently unemployed and looking for a job?: No Are you interested in more education?: No Please select the resources that you would like help with: Housing/Alf, Food, Transportation, Utilities and Care for elder or disabled Currently or been in a relationship where the following occur: No concerns reported THRIVE Score: 4 AUDIT C Alcohol Use Questionnaire (AUDIT-C) 1. How often do you have a drink containing alcohol?: 2-4 times a month 2. How many drinks containing alcohol do you have on a typical day when you are drinking?: 1 or 2 3. How often do you have six or more drinks on one occasion?: Monthly Total Score: 4 Score Reviewed/Action Taken: Yes SANDEEP-7 AMB Questionnaire SANDEEP-7 Date SANDEEP - 7 assessed: 09/02/24 Feeling nervous, anxious, or on edge: 0 = Not at all Not being able to stop or control worryin = Not at all Worrying too much about different things: 2 = More than half the days Trouble relaxin = Nearly every day Being so restless that it is hard to sit still: 3 = Nearly every day Becoming easily annoyed or irritable: 0 = Not at all Feeling afraid as if something awful might happen: 0 = Not at all Total SANDEEP-7 score (0-4 normal; 5-9 mild; 10-14 moderate; 15-21 severe): 8 Source: Developed by Drs. Jersey Tellez, Lis Andrew, Wm Zhang and colleagues, with an educational viktor from [employer]. Review of Systems Const Denies chills, Denies fatigue, Denies fever(s) and Denies headache(s) ENT Denies dysphagia, Denies dizziness, Denies otalgia, Denies headache(s), Denies neck pain, Denies odynophagia and Denies sore throat Card Denies chest pain, Denies palpitations and Denies dyspnea Resp Denies chest congestion, Denies cough and Denies dyspnea GI Denies abdominal pain, Denies constipation, Denies dysphagia, Denies heartburn, Denies diarrhea, Denies nausea, Denies odynophagia and Denies vomiting Denies dysuria, Denies nocturia and Denies urinary frequency Musc Denies back pain, Reports arthralgias (increasing in the right knee and right foot lately) and Denies neck pain Skin/Breast Denies rash Neuro Denies dizziness and Denies headache(s) Endo Denies fatigue and Denies palpitations Physical exam (Primary Care) Vital Signs: Last Vital Signs Pulse 93 09/02/24 14:42 BP 136/82 09/02/24 14:42 Pulse Ox 96 09/02/24 14:42 Oxygen Delivery Method Room Air 09/02/24 14:42 BMI result Body Mass Index 47.3 Tobacco/Smoking Status: Tobacco use Status Tobacco use date assessed 09/02/24 09/02/24 14:48 Patient Tobacco Use Status Current everyday Tobacco 09/02/24 14:48 e-Cigarette/Vaping Use Never Used 09/02/24 14:48 PHQ-9: PHQ-9 Score PHQ-9: Total score 15 09/02/24 15:13 Depression Screening Interpretation: Positive Depression Screening Follow-up: Existing condition and Follow-up Visit Requested Thrive Assessment: Date of Thrive Assessment Date Thrive assessed 09/02/24 09/02/24 14:48 Currently or been in a relationship where the following occur: No concerns reported Const General: no acute distress and alert HENMT Ears: TM's normal bilaterally and EAC's normal Throat: Yes posterior oropharynx normal and Yes tonsils normal (no TP congestion) Neck Neck: Yes supple and No lymphadenopathy Thyroid: Thyroid normal Resp Auscultation: clear to auscultation bilaterally, no rales and no wheezes Cardio Rate: regular rate Rhythm: regular rhythm Heart sounds: no murmurs GI Palpation (GI): Soft to palpation and nontender Auscultation: normal bowel sounds General: Yes no CVA tenderness Back/Spine/Pelvis Back: no CVA tenderness Thoracic/Lumbar Spine: No lumbar spinal tenderness Skin Rashes: no rashes Extrem General: Yes no clubbing, cyanosis or edema Results Reviewed Results Reviewed: Laboratory Tests 08/31/24 08/31/24 15:30 15:34 WBC 5.6 Hgb 15.7 Hct 46.7 Plt Count 191 Sodium 143 Potassium 4.1 Creatinine 1.07 Estimated GFR > 60 Fasting Glucose 120 H Hemoglobin A1c % 6.5 H Calcium 9.5 AST 46 H ALT 57 H Triglycerides 190 H Cholesterol 181 LDL Cholesterol, Calc 92 HDL Cholesterol 51 25-OH Vitamin D Total 15.3 L TSH 0.93 Ur Specific [place] >= 1.030 H Urine Protein Trace Urine Glucose (UA) Negative Urine Blood Negative Urine Nitrite Negative Ur Leukocyte Esterase Negative Microalb/Creat Ratio 4.6 Coding Level of Care Code Est Pt Level 4 (02461) Complex EM visit Add On G2211 Diagnoses Mixed hyperlipidemia E78.2 Benign essential hypertension I10 Impaired fasting glucose R73.01 Elevated LFTs R79.89 Vitamin D deficiency E55.9 GERD without esophagitis K21.9 Right knee pain, unspecified chronicity M25.561 Chronicity: unspecified Right foot pain M79.671 Smoker F17.200 Morbid obesity with BMI of 45.0-49.9, adult E66.01; Z68.42 Additional Codes PHQ-9 - 62061 - PHQ-9 Billing: Yes ([id number]) Assessment & Plan Assessment & Plan (1) Mixed hyperlipidemia: Code(s): E78.2 - Mixed hyperlipidemia Category: Medical Plan: Results of his labs done a couple of days ago reviewed and discussed with patient - his cholesterol levels have remained fairly well-controlled Reinforced low cholesterol diet Will recheck his labs and fasting lipids in 4 months for follow up (2) Benign essential hypertension: Code(s): I10 - Essential (primary) hypertension Category: Medical Plan: Reinforced low sodium diet - goal is systolic BP of at least 130 mm or less Continue Lisinopril 5 mg QD Patient is again reminded to continue monitoring his blood pressure regularly (3) Impaired fasting glucose: Code(s): R73.01 - Impaired fasting glucose Category: Medical Plan: His HgbA1c is at 6.5% on his recent labs (was at 6.4% a few days ago and this has increased significantly from 5.9% and 5.7% back in 2023) Have cautioned patient again that his HgbA1c of 6.5% classifies him now as a diabetic and if this persists or gets even worse, he will need to be started on medication(s) for diabetes Reinforced low calorie/low carb diet; exercise as tolerated again for now Will recheck his FBS and HgbA1c again in 4 months for follow up (4) Elevated LFTs: Code(s): R79.89 - Other specified abnormal findings of blood chemistry Category: Medical Plan: He is again cautioned that his LFTs have increased further from previous on his recent labs - is likely related to his weight Have also cautioned patient against drinking too much alcohol or taking too many Tylenol-containing medications Will recheck his LFTs and labs in 4 months for follow up (5) Vitamin D deficiency: Code(s): E55.9 - Vitamin D deficiency, unspecified Category: Medical Plan: Continue Vitamin D3 2000 units QD (6) GERD without esophagitis: Code(s): K21.9 - Gastro-esophageal reflux disease without esophagitis Category: Medical Plan: Reinforced dietary restrictions Continue Famotidine 20 mg Q HS PRN (7) Right knee pain: Code(s): M25.561 - Pain in right knee Category: Medical Qualifiers: Chronicity: unspecified Qualified Code(s): M25.561 - Pain in right knee Plan: X-rays of the right knee done back in May 2024 came out normal Will refer patient to orthopedics for further evaluation and management of his increased right knee and foot pain (8) Right foot pain: Code(s): M79.671 - Pain in right foot Category: Medical Plan: Will refer patient to orthopedics for further evaluation and management of his increased right knee and foot pain (9) Smoker: Code(s): F17.200 - Nicotine dependence, unspecified, uncomplicated Category: Social Hx Plan: Patient is counseled again on complete smoking cessation (10) Morbid obesity with BMI of 45.0-49.9, adult: Code(s): E66.01 - Morbid (severe) obesity due to excess calories; Z68.42 - Body mass index [BMI] 45.0-49.9, adult Category: Medical Plan: Reinforced diet/weight loss; exercise is somewhat difficult due to patient's current orthopedic issues He is cautioned again that he has gained some more weight since his last visit Plan Follow up in 4 months Orders: Orders Complete Blood Count Auto Diff 4 Months D64.9 - Anemia, unspecified Lipid Panel 4 Months E78.00 - Pure hypercholesterolemia, unspecified TSH reflex Free T4 4 Months E78.00 - Pure hypercholesterolemia, unspecified Comprehensive [place]. Panel Fast 4 Months E78.00 - Pure hypercholesterolemia, unspecified UA CC w/rflx Micro + Cult 4 Months R30.0 - Dysuria Vitamin D 25-OH Total 4 Months E55.9 - Vitamin D deficiency, unspecified Hepatitis A,B,C Profile 4 Months R79.89 - Other specified abnormal findings of blood chemistry Referrals Orthopedics Referral M25.561 - Pain in right knee, M79.671 - Pain in right foot, Z91.81 - History of falling
== END 2024-09-02 15:24 | disposition home or self-care (01) ==
LOC: HO.HMCH 14:41
PROVIDERS: PCP Internal Medicine; Visit Provider Internal Medicine
DX: E78.2 Mixed hyperlipidemia (principal); I10 Essential (primary) hypertension; E66.01 Morbid (severe) obesity due to excess calories; Z68.42 Body mass index [BMI] 45.0-49.9, adult; R73.01 Impaired fasting glucose; R79.89 Other specified abnormal findings of blood chemistry; E55.9 Vitamin D deficiency, unspecified; K21.9 Gastro-esophageal reflux disease without esophagitis; M25.561 Pain in right knee; M79.671 Pain in right foot; F17.200 Nicotine dependence, unspecified, uncomplicated

== ENCOUNTER → 2024-09-02 14:40 | Outpatient (BNVA) | payer OTHER, SELFPAY | PROVIDERS: PCP Internal Medicine; Visit Provider Internal Medicine | DX: I10 Essential (primary) hypertension (principal); M25.561 Pain in right knee; M79.671 Pain in right foot; E78.2 Mixed hyperlipidemia; R73.01 Impaired fasting glucose; R79.89 Other specified abnormal findings of blood chemistry; E55.9 Vitamin D deficiency, unspecified; K21.9 Gastro-esophageal reflux disease without esophagitis; F17.210 Nicotine dependence, cigarettes, uncomplicated; E66.01 Morbid (severe) obesity due to excess calories; Z68.42 Body mass index [BMI] 45.0-49.9, adult; D64.9 Anemia, unspecified; E78.00 Pure hypercholesterolemia, unspecified; R30.0 Dysuria; Z91.81 History of falling | CPT/HCPCS: 96127; 99212 ==

== ENCOUNTER 2024-11-22 10:37 | Outpatient (REF) | payer OTHER, SELFPAY | END 2024-11-22 10:38 | disposition home or self-care (01) | LOC: HO.HOSX 10:37 | PROVIDERS: Visit Provider Physician Assistant | DX: Z13.89 Encounter for screening for other disorder (principal) ==

== ENCOUNTER 2024-11-22 14:07 | Outpatient (REF) | payer OTHER, SELFPAY | END 2024-11-22 14:08 | disposition home or self-care (01) | LOC: HO.HAP 14:07 | PROVIDERS: Visit Provider Internal Medicine | DX: Z13.89 Encounter for screening for other disorder (principal) | CPT/HCPCS: V5266 ==

== ENCOUNTER 2024-12-05 13:43 | Outpatient (AMB) | payer OTHER, SELFPAY ==
[2024-12-05 14:01] VITALS: BMI 47.3
--- NOTE | 2024-12-05 14:01 | A.OFFVIS_ITS ---
Vital Signs 12/05/24 14:01 Height 5 ft 8 in Weight 311 lb BMI 47.3 Intake Visit Reasons: New Pt - right ankle/heal pain Intake Note: Gray is a 49 year old male who presents today as a new patient for an evaluation of his chronic right ankle pain. Patient report his right ankle was sprained back in March of 1999. He states his pain has gotten worse since May after falling 4ft off a ladder and landing on his heel and now he is having heel and whole ankle pain. He states he has tried physical therapy back when inury occurred in 1999 and he has tried heat and cold packs recently. Allergies No Known Allergies (No Known Allergies*) Allergy (Verified 12/05/24 14:02) HPI HPI New Pt - right ankle/heal pain: Details: The patient is a 49-year-old male past medical history of diabetes mellitus type 2, hypertension, presenting with chronic right heel and ankle pain. He reports a history of right ankle sprain from March 1999, which has resulted in persistent pain and instability despite physical therapy. The pain level is typically 5/10, increasing to 10/10 with prolonged activity. The heel pain began in May following a fall, described as constant and worsening with weight-bearing activities. The pain is severe in the morning and after inactivity, necessitating the occasional use of a cane to aid in ambulation. He has not attempted any treatment thus far. The patient has diabetes with an A1c of 6.5, currently managed through lifestyle changes. Recent inactivity due to pain has led to weight gain despite previous efforts to manage weight and cholesterol. Surgical History: - ACL surgery on the left knee Social History: - Smokes approximately one pack of cigarettes per day - Formerly active, now limited in mobility due to pain, impacting daily activities and employment [employer] Medical History Morbid obesity with BMI of 45.0-49.9, adult Morbid obesity with BMI of 40.0-44.9, adult Tinnitus Mixed hyperlipidemia GERD without esophagitis Elevated LFTs Vitamin D deficiency Impaired fasting glucose Benign essential hypertension Hearing loss, bilateral Smoker Surgical History Hx of colonoscopy History of knee surgery (~03/2013) Family History Father Epilepsy Heart attack High blood pressure Mother Diabetes Stroke Social History Housing: Apartment Alcohol intake: current Alcohol intake frequency: holidays/special occasions only Patient Tobacco Use Status: Current everyday Tobacco user Cigarettes Per Day: 10 e-Cigarette/Vaping Use: Never Used Second Hand Smoke Exposure: Yes service: No Current occupational status: unemployed Current occupational exposures/hazards: No Cognitive needs: No Hearing needs: Yes Vision needs: Yes (glasses) Review of Systems Const All systems reviewed & are unremarkable except as noted in HPI and below Physical Exam Vital Signs: BMI result Body Mass Index 47.3 Extrem Other: *Bilateral Lower Extremity Focused Exam Vascular: DP/PT 2/4, CFT less than 3 seconds all digits, temperature gradient warm to cool. Pedal hair present to the dorsal aspect. Derm: Annular scaling plantar feet bilaterally. No open wounds or lacerations or erythema or clinical signs of infection. Neuro: Protective sensation grossly intact to bilateral lower extremities. MSK: Moderate tenderness on palpation along the plantar medial calcaneal tubercle right foot. No pain along the posterior aspect of the heel or Achilles tendon. Right lower extremity Ankle dorsiflexion 0 degrees on knee extension, 3-4 degrees on knee flexion. No pain on palpation along the right lateral ankle, ankle inversion to eversion 2.5:1. High arch cavus feet type bilaterally, semi reducible. Office Procedures AMB Flexor Tendon/Plantar POD Tendon Injection Details of AMB Procedure: Procedure: Steroid injection Location: Right plantar fascia insertion Medication: 1.5cc 0.5% bupivicaine, 1cc dexamethasone, 0.5cc kenalog? Description: The right foot was prepped using alcohol. A steroid injection was administered using sterile technique. The site was dressed using a band-aid. Post-procedure Instructions: The patient was instructed to apply ice to the injection site. The patient was advised to call the office if there are signs or symptoms of worsening pain, infection, or steroid flare. Tendon Injection POD1: - Plantar Fascia Injection All charges added?: Procedure code (CPT) selection complete Office Meds triamcinolone acetonide 40 mg/mL suspension for injection Performing Provider: Avila Mao DPM Performing Location: [facility] [place] Administered by: Avila Mao DPM on 12/05/24 20:20 Dose Route Admin Location Dispensed Lot Number Expiration Date [facility] Assurance Analyst 20 mg subcutaneous 1 mL [id number] [employer] Total Dispensed Waste 1 mL 50 % dexamethasone sodium phosphate 4 mg/mL injection solution Performing Provider: Avila Mao DPM Performing Location: [facility] [place] [facility] Administered by: Avila Mao DPM on 12/05/24 20:20 Dose Route Admin Location Dispensed Lot Number Expiration Date [facility] Assurance Analyst 4 mg subcutaneous 1 mL [id number] [employer] Total Dispensed Waste 1 mL 0 % bupivacaine (PF) 0.5 % (5 mg/mL) injection solution Performing Provider: Avila Mao DPM Performing Location: [facility] [place] [facility] Administered by: Avila Mao DPM on 12/05/24 20:20 Dose Route Admin Location Dispensed Lot Number Expiration Date [facility] Assurance Analyst 2 mL subcutaneous 10 mL [id number] [employer] Total Dispensed Waste 10 mL 80 % Results Reviewed Results Reviewed: Podiatry X-ray Read: 05/13/2024 X-ray right foot 3 views (AP, MO, Lateral) reviewed which shows mild p lantar calcaneal spur, mild met adductus parabola, mild increased 1st intermetatarsal angle. Normal sesamoid position. No fractures, dislocations, or gross abnormalities. Bone density is within normal limits. Normal anatomy. I personally reviewed the imaging and my findings are listed above. Podiatry X-ray Read: 05/13/2024 X-ray right tib-fib 2 views (AP, Lateral) reviewed which shows no fractures, dislocations, or gross abnormalities. Bone density is within normal limits. Normal anatomy. No evidence of swelling, foreign body, or calcifications. I personally reviewed the imaging and my findings are listed above. Assessment & Plan Assessment & Plan (1) Plantar fasciitis of right foot: Code(s): M72.2 - Plantar fascial fibromatosis Category: Medical Plan: * Reviewed right foot and leg x-rays with the patient. * Discussed etiology of the patient's foot pain. Differential diagnosis includes plantar fasciitis, neuritis, tendinitis. * Patient educated on the nature and etiology of plantar fasciitis, which involves inflammation and microtearing of the plantar fascia due to repetitive stress and overuse. * The patient was counseled on conservative management of plantar fasciitis, including daily stretching exercises targeting the plantar fascia and Achilles tendon, use of supportive and properly fitting footwear, and consideration of custom or prefabricated orthotics to improve foot biomechanics. * He was administered a cortisone injection to the right heel. It was discussed that there are possible side effects or risks of the injection due to his smoking history and diabetes, however he was recommended close monitoring. * Instructed the patient on home stretching and range of motion exercises includ ing calf-stretches, frozen water bottle therapy, band-therapy. A handout was dispensed. * Referred to physical therapy. * He was dispensed a night splint. * Recommended supportive shoe-wear with arch-supports to avoid increased loading on the patient's plantar fascia band. The patient states that he is currently happy with the shoes and is concerned about trying other brands. * Follow up in 3 weeks. (2) Right ankle instability: Code(s): M25.371 - Other instability, right ankle Category: Medical Plan: * Discussed that it may require an MRI in the future. (3) Cavus deformity of both feet: Code(s): Q66.71 - Congenital pes cavus, right foot; Q66.72 - Congenital pes cavus, left foot Category: Medical Plan: * Educated the patient on his foot type. Explained that his high arch foot type (Cavus feet) can lead to altered weight distribution, resulting in increased pressure on the heel and lateral ankle. Patients may experience symptoms such as pain, callus formation, tendinitis, instability, and lateral ankle sprains. Orders: Orders PT Evaluation and Treatment Today M72.2 - Plantar fascial fibromatosis AMB Flexor Tendon / Plantar Fascia Injection Today M72.2 - Plantar fascial fibromatosis Coding Level of Care Code New Pt Level 4 (29446) Diagnoses Plantar fasciitis of right foot M72.2 Right ankle instability M25.371 Cavus deformity of both feet Q66.71; Q66.72 CPT Codes Tendon Injection - Tendon Injection POD1: - Plantar Fascia Injection ([id number]) Time Spent (min) 45
== END 2024-12-05 20:30 | disposition home or self-care (01) ==
LOC: HO.HPODS 13:44
PROVIDERS: PCP Internal Medicine; Visit Provider Student in an Organized Health Care Education/Training Program
DX: M25.371 Other instability, right ankle (principal); M72.2 Plantar fascial fibromatosis; Q66.71 Congenital pes cavus, right foot; Q66.72 Congenital pes cavus, left foot
CPT/HCPCS: 20550; 99203

== ENCOUNTER → 2024-12-05 13:43 | Outpatient (BNVA) | payer OTHER, SELFPAY | PROVIDERS: PCP Internal Medicine; Visit Provider Student in an Organized Health Care Education/Training Program | DX: M72.2 Plantar fascial fibromatosis (principal); M25.371 Other instability, right ankle; Q66.71 Congenital pes cavus, right foot; Q66.72 Congenital pes cavus, left foot | CPT/HCPCS: 20550; 99202; J0665; J1100; J3301 ==

== ENCOUNTER 2024-12-06 09:06 | Outpatient (REF) | payer OTHER, SELFPAY ==
--- NOTE | ~2024-12-06 | XR_ITS ---
EXAMINATION: XR KNEE, LEFT CLINICAL INFORMATION: M25.569 - Pain in unspecified knee COMPARISON: None available. TECHNIQUE: AP bilateral, sunrise, and lateral views of the left knee. FINDINGS: Postoperative changes are present related to ACL reconstruction. There is a screw with washer entering into the medullary space through the tibial tuberosity. There is mild narrowing of the medial joint space. There are tricompartmental marginal osteophytes. There is a joint effusion. Patellofemoral alignment is unremarkable. XR/XR knee LT 3V IMPRESSION: Mild osteoarthritis. Postsurgical changes. Electronically signed by: Kolby Clark MD 12/06/2024 11:08 AM EDT
== END 2024-12-06 09:07 | disposition home or self-care (01) ==
LOC: HO.HOSX 09:06
PROVIDERS: Visit Provider Physician Assistant
DX: M17.12 Unilateral primary osteoarthritis, left knee (principal); G89.29 Other chronic pain; Z79.1 Long term (current) use of non-steroidal anti-inflammatories (NSAID); Z98.890 Other specified postprocedural states
CPT/HCPCS: 73562; 99202

== ENCOUNTER 2024-12-06 10:35 | Outpatient (AMB) | payer OTHER, SELFPAY ==
--- NOTE | 2024-12-06 10:55 | A.OFFVIS_ITS ---
Vital Signs 12/06/24 11:01 Height 5 ft 8 in Weight 311 lb BMI 47.3 Handedness Right Intake Visit Reasons: New prob-LT knee ACL tear repair [facility] 03/29/13 Intake Note: Gray is a 49 year old male who presents today as a new patient for a evaluation of his left knee pain. Patient reports having ongoing pain since his surgery. He is status post left knee ACL repair 03/29/13 Dr. Cholo Hawkins. Patient states that his pain is through out the whole knee. He states that he has done physical therapy and some at home exercises with relief. Patient is no taking anything for pain and cold compresses. Allergies No Known Allergies (No Known Allergies*) Allergy (Verified 12/06/24 11:00) HPI HPI New prob-LT knee ACL tear repair [facility] 03/29/13: Details: Mr. Navarrete is a 49-year-old male with a past medical history significant for morbid obesity (BMI 47.3), hyperlipidemia, elevated LFTs, vitamin-D deficiency, HTN, and tobacco use. He presents to the office today for evaluation of continued chronic left knee pain. He has a history of an ACL reconstruction performed by [facility] with Dr. Hawkins on 03/29/2013. Patient states that after the surgery he performed physical therapy and was doing well. He has had chronic left knee pain ever since surgery. He also reports that he has episodes of giving way that cause him to fall quite frequently. He reports his pain is located circumferentially around the joint line and underneath the kneecap. PFSH Medical History Morbid obesity with BMI of 45.0-49.9, adult Morbid obesity with BMI of 40.0-44.9, adult Tinnitus Mixed hyperlipidemia GERD without esophagitis Elevated LFTs Vitamin D deficiency Impaired fasting glucose Benign essential hypertension Hearing loss, bilateral Smoker Surgical History Hx of colonoscopy History of knee surgery (~03/2013) Family History Father Epilepsy Heart attack High blood pressure Mother Diabetes Stroke Social History Housing: Apartment Alcohol intake: current Alcohol intake frequency: holidays/special occasions only Patient Tobacco Use Status: Current everyday Tobacco user Cigarettes Per Day: 10 e-Cigarette/Vaping Use: Never Used Second Hand Smoke Exposure: Yes service: No Current occupational status: unemployed Current occupational exposures/hazards: No Cognitive needs: No Hearing needs: Yes Vision needs: Yes (glasses) Review of Systems Const All systems reviewed & are unremarkable except as noted in HPI and below Physical Exam Vital Signs: BMI result Body Mass Index 47.3 Const General: cooperative, healthy appearing and no acute distress Resp Effort & Inspection: normal respiratory effort and able to speak in complete sentences Extrem Other: Left knee prior ACL incision site scar located along the tibial tubercle. Able to perform range of motion 0-100 degrees. Slight tenderness to palpation both medial and lateral joint lines. Some laxity with anterior drawer. NVI. Psych Appearance: grossly normal Mental Status: mental status grossly normal Attitude: cooperative Assessment & Plan Assessment & Plan (1) History of reconstruction of anterior cruciate ligament tear: Code(s): Z98.890 - Other specified postprocedural states Category: Surgical (2) Osteoarthritis of left knee: Code(s): M17.12 - Unilateral primary osteoarthritis, left knee Category: Medical Plan Mr. Navarrete is a 49-year-old male with a past medical history significant for mo rbid obesity (BMI 47.3), hyperlipidemia, elevated LFTs, vitamin-D deficiency, HTN, and tobacco use. He presents to the office today for evaluation of continued chronic left knee pain. He has a history of an ACL reconstruction performed by [facility] with Dr. Hawkins on 03/29/2013. Patient states that after the surgery he performed physical therapy and was doing well. He has had chronic left knee pain ever since surgery. He also reports that he has episodes of giving way that cause him to fall quite frequently. He reports his pain is located circumferentially around the joint line and underneath the kneecap. While in the office today, we discussed conservative treatment options such as oral anti-inflammatories, physical therapy, knee bracing and cortisone injections. Patient would like to hold off on cortisone injections at this time. I have offered the patient a playmaker knee brace in which he was fit for off the shelf while in the office today. He will wear this during activities for support. I also placed an order for physical therapy. He will continue taking oral anti-inflammatories and [id number] pain relievers as needed. He will follow up PRN, sooner if needed. X-rays of the left knee which were obtained while in the office today and were reviewed by me, Yue Haynes PA-C, revealed arthritic changes and postsurgical changes status post ACL reconstruction. Orders: Orders XR knee LT 3V Today M25.569 - Pain in unspecified knee Coding Level of Care Code New Pt Level 3 (15858) Diagnoses History of reconstruction of anterior cruciate ligament tear Z98.890 Osteoarthritis of left knee M17.12
[2024-12-06 11:01] VITALS: BMI 47.3
== END 2024-12-06 12:16 | disposition home or self-care (01) ==
LOC: HO.HOS 10:36
PROVIDERS: PCP Internal Medicine; Visit Provider Physician Assistant
DX: M17.12 Unilateral primary osteoarthritis, left knee (principal); S83.512D Sprain of anterior cruciate ligament of left knee, subsequent encounter; Z98.890 Other specified postprocedural states
CPT/HCPCS: 99203

== ENCOUNTER → 2024-12-06 10:41 | Outpatient (BNV) | payer OTHER, SELFPAY | PROVIDERS: Visit Provider Radiology Diagnostic Radiology | DX: M17.12 Unilateral primary osteoarthritis, left knee (principal) | CPT/HCPCS: 73562 ==

== ENCOUNTER 2024-12-29 12:45 | Outpatient (AMB) | payer OTHER, SELFPAY ==
--- NOTE | 2024-12-29 13:00 | A.OFFVIS_ITS ---
Vital Signs 12/29/24 13:10 Height 5 ft 8 in Weight 311 lb BMI 47.3 Intake Visit Reasons: Right ankle/heal pain Intake Note: Gray is a 49 year old male who presents to the office today for a follow up for Right ankle/heel pain. At previous appt a cortisone injection was administered to patients right heel. Pt was referred to physical therapy and was dispensed a night splint. Pt states he has not been able to make an appointment with physical therapy however he has been performing the stretching exercises and the cortisone injection has helped alleviate his pain symptoms. He reports the pain is starting to return slightly but finds that it is not as strong as it was initialy. Allergies No Known Allergies (No Known Allergies*) Allergy (Verified 12/29/24 13:12) HPI HPI Right ankle/heal pain: Details: The patient is a 49-year-old male past medical history of diabetes mellitus type 2, hypertension, presenting for follow up of chronic right heel and ankle pain. Patient states that his pain has significantly improved after the last cortisone injection. He does note however that over the past few days, the pain has slowly been returning. He is still doing range of motion and stretching exercises at home. He has scheduled an appointment with physical therapy however has not been able to start yet. History: He reports a history of right ankle sprain from March 1999, which has resulted in persistent pain and instability despite physical therapy. The pain level is typically 5/10, increasing to 10/10 with prolonged activity. The heel pain began in May following a fall, described as constant and worsening with weight-bearing activities. The pain is severe in the morning and after inactivity, necessitating the occasional use of a cane to aid in ambulation. He has not attempted any treatment thus far. The patient has diabetes with an A1c of 6.5, currently managed through lifestyle changes. Recent inactivity due to pain has led to weight gain despite previous efforts to manage weight and cholesterol. Surgical History: - ACL surgery on the left knee Social History: - Smokes approximately one pack of cigarettes per day - Formerly active, now limited in mobility due to pain, impacting daily activities and employment PFSH Medical History Morbid obesity with BMI of 45.0-49.9, adult Morbid obesity with BMI of 40.0-44.9, adult Tinnitus Mixed hyperlipidemia GERD without esophagitis Elevated LFTs Vitamin D deficiency Impaired fasting glucose Benign essential hypertension Hearing loss, bilateral Smoker Surgical History Hx of colonoscopy History of knee surgery (~03/2013) Family History Father Epilepsy Heart attack High blood pressure Mother Diabetes Stroke Social History Housing: Apartment Alcohol intake: current Alcohol intake frequency: holidays/special occasions only Patient Tobacco Use Status: Current everyday Tobacco user Cigarettes Per Day: 10 e-Cigarette/Vaping Use: Never Used Second Hand Smoke Exposure: Yes service: No Current occupational status: unemployed Current occupational exposures/hazards: No Cognitive needs: No Hearing needs: Yes Vision needs: Yes (glasses) Review of Systems Const All systems reviewed & are unremarkable except as noted in HPI and below Physical Exam Vital Signs: BMI result Body Mass Index 47.3 Extrem Other: *Bilateral Lower Extremity Focused Exam Vascular: DP/PT 2/4, CFT less than 3 seconds all digits, temperature gradient warm to cool. Pedal hair present to the dorsal aspect. Derm: Annular scaling plantar feet bilaterally. No open wounds or lacerations or erythema or clinical signs of infection. Neuro: Protective sensation grossly intact to bilateral lower extremities. MSK: Mild tenderness on palpation along the plantar medial calcaneal tubercle right foot. No pain along the posterior aspect of the heel or Achilles tendon. Right lower extremity Ankle dorsiflexion 0 degrees on knee extension, 3-4 degrees on knee flexion. No pain on palpation along the right lateral ankle, ankle inversion to eversion 2.5:1. High arch cavus feet type bilaterally, semi reducible. Results Reviewed Results Reviewed: Podiatry X-ray Read: 05/13/2024 X-ray right foot 3 views (AP, MO, Lateral) reviewed which shows mild plantar calcaneal spur, mild met adductus parabola, mild increased 1st intermetatarsal angle. Normal sesamoid position. No fractures, dislocations, or gross abnormalities. Bone density is within normal limits. Normal anatomy. I personally reviewed the imaging and my findings are listed above. Podiatry X-ray Read: 05/13/2024 X-ray right tib-fib 2 views (AP, Lateral) reviewed which shows no fractures, dislocations, or gross abnormalities. Bone density is within normal limits. Normal anatomy. No evidence of swelling, foreign body, or calcifications. I personally reviewed the imaging and my findings are listed above. Assessment & Plan Assessment & Plan (1) Plantar fasciitis of right foot: Comment: Status post cortisone injection 12/05/2024 Code(s): M72.2 - Plantar fascial fibromatosis Category: Medical Plan: * Previously reviewed right foot and leg x-rays with the patient. * Discussed etiology of the patient's foot pain. Differential diagnosis includes plantar fasciitis, neuritis, tendinitis. * Patient educated on the nature and etiology of plantar fasciitis, which involves inflammation and microtearing of the plantar fascia due to repetitive stress and overuse. * The patient was counseled on conservative management of plantar fasciitis, including daily stretching exercises targeting the plantar fascia and Achilles tendon, use of supportive and properly fitting footwear, and consideration of custom or prefabricated orthotics to improve foot biomechanics. * He was administered a cortisone injection to the right heel. It was discussed that there are possible side effects or risks of the injection due to his smoking history and diabetes, however he was recommended close monitoring. * Instructed the patient on home stretching and range of motion exercises including calf-stretches, frozen water bottle therapy, band-therapy. A handout was dispensed. * Instructed to go to physical therapy appointment * Continue use of night splint * Follow up in 6 weeks. (2) Right ankle instability: Code(s): M25.371 - Other instability, right ankle Category: Medical Plan: * Discussed that it may require an MRI in the future. (3) Cavus deformity of both feet: Code(s): Q66.71 - Congenital pes cavus, right foot; Q66.72 - Congenital pes cavus, left foot Category: Medical Plan: * Educated the patient on his foot type. Explained that his high arch foot type (Cavus feet) can lead to altered weight distribution, resulting in increased pressure on the heel and lateral ankle. Patients may experience symptoms such as pain, callus formation, tendinitis, instability, and lateral ankle sprains. (4) Tinea pedis: Code(s): B35.3 - Tinea pedis Category: Medical Qualifiers: Laterality: bilateral Qualified Code(s): B35.3 - Tinea pedis Plan: * Rx clotrimazole ointment Coding Level of Care Code Est Pt Level 3 (26979) Diagnoses Plantar fasciitis of right foot M72.2 Right ankle instability M25.371 Cavus deformity of both feet Q66.71; Q66.72 Tinea pedis of both feet B35.3 Laterality: bilateral Time Spent (min) 30
[2024-12-29 13:10] VITALS: BMI 47.3
== END 2024-12-29 13:20 | disposition home or self-care (01) ==
LOC: HO.HPODS 12:46
PROVIDERS: PCP Internal Medicine; Visit Provider Student in an Organized Health Care Education/Training Program
DX: M72.2 Plantar fascial fibromatosis (principal); M25.371 Other instability, right ankle; Q66.71 Congenital pes cavus, right foot; Q66.72 Congenital pes cavus, left foot; B35.3 Tinea pedis
CPT/HCPCS: 99213

== ENCOUNTER → 2024-12-29 12:45 | Outpatient (BNVA) | payer OTHER, SELFPAY | PROVIDERS: PCP Internal Medicine; Visit Provider Student in an Organized Health Care Education/Training Program | DX: M72.2 Plantar fascial fibromatosis (principal); M25.371 Other instability, right ankle; B35.3 Tinea pedis; Q66.71 Congenital pes cavus, right foot; Q66.72 Congenital pes cavus, left foot | CPT/HCPCS: 99212 ==

== ENCOUNTER 2025-01-12 13:40 | Outpatient (REF) | payer OTHER, SELFPAY ==
[2025-01-12 13:59] LABS: MANUAL DIFF FLAG NO
[2025-01-12 14:41] LABS: Hematocrit 45.3 % (42.0-52.0); Hemoglobin 15.5 g/dl (14.0-18.0); Imm Gran Abs Auto 0.02 X10*3/uL (0.00-0.03); Imm Gran Pct Auto 0.3 % (0.0-0.4); Lymphocytes Absolute Auto 1.7 X10*3/uL (1.2-4.9); Mean Corpuscular HGB Conc 34.2 g/dl (31.0-36.0); Mean Corpuscular Hemoglobin 32.1 pg (27.0-33.0); Mean Corpuscular Volume 93.8 fL (80.0-98.0); NRBC Abs Auto 0.000 X10*3/uL (0.0-0.012); NRBC Pct Auto 0.0 /100WBC (0.0-0.2); Platelet Count 207 X10*3/uL (160-400); Red Blood Count 4.83 X10*6/uL (4.60-5.80); White Blood Count 5.9 X10*3/uL (4.8-10.8)
[2025-01-12 15:12] LABS: Alanine Aminotransferase 59 U/L (0-40); Albumin Level 4.6 g/dL (3.5-5.0); Alkaline Phosphatase 84 U/L (39-117); Anion Gap 10 (12-20); Aspartate Amino Transferase 40 U/L (5-37); Blood Urea Nitrogen 11 mg/dL (9-16); Calcium 9.3 mg/dL (8.4-10.2); Carbon Dioxide 27 mmol/L (22-29); Chloride 105 mmol/L (96-108); Cholesterol 189 mg/dL (<200); Estimated Glomerular Filt Rate > 60; HDL Cholesterol 53 mg/dL (>40); Potassium 4.4 mmol/L (3.3-5.1); Sodium 138 mmol/L (135-145); Total Protein 7.6 g/dL (6.5-8.0); Triglycerides 158 mg/dL (<150)
[2025-01-13 08:09] LABS: HBS Num1 1.25 mIU/mL (0-7.99); HBc Num1 0.07 S/CO (0.00-0.79); HBsAGNum1 0.34 S/CO (0.00-0.99); Hepatitis A Antibody IgM 0.33 Index (0-0.79); Hepatitis B Surface Antigen Negative (Negative); ~HepC Num1 0.10 S/CO (0.00-0.79); ~Hepatitis A Antibody IgM Nonreactive (Nonreactive); ~Hepatitis B Surface Antibody NONREACTIVE (Nonreactive); ~Hepatitis C Antibody Nonreactive (Nonreactive)
== END 2025-01-12 13:41 | disposition home or self-care (01) ==
LOC: HO.LAB 13:40
PROVIDERS: PCP Internal Medicine; Visit Provider Internal Medicine
DX: Z11.59 Encounter for screening for other viral diseases (principal); D64.9 Anemia, unspecified; E78.00 Pure hypercholesterolemia, unspecified; E55.9 Vitamin D deficiency, unspecified; R79.89 Other specified abnormal findings of blood chemistry
CPT/HCPCS: 36415; 80053; 80061; 81003; 82306; 84443; 85025; 86704; 86706; 86709; 86803; 87340

== ENCOUNTER 2025-01-18 16:09 | Outpatient (AMB) | payer OTHER, SELFPAY ==
[2025-01-18 16:55] VITALS: BP 136/80; PULSE 78; O2SAT 97; BMI 47.6
--- NOTE | 2025-01-18 16:55 | MHC.PC.OV ---
Vital Signs 01/18/25 16:55 Height 5 ft 8 in Weight 313 lb BMI 47.6 BP 136/80 Blood Pressure Location Lt brachial Position Sitting Pulse 78 Pulse Source Pulse Oximeter Pulse Oximetry (%) 97 Oxygen Delivery Method Room Air Intake Visit Reasons: elevated LFTs, HTN, hyperlipidemia, GERD Clinic Lead Required: No Accompanied by: Self / Same As Patient Allergies No Known Allergies (No Known Allergies*) Allergy (Verified 01/18/25 17:38) Medication List - Last Reconciled 01/18/25 by Marty Luna MD bisacodyl (Dulcolax (bisacodyl)) 20 mg (4 x 5 mg) PO ONCE 1 day cholecalciferol (vitamin D3) 50 mcg PO DAILY 90 days clotrimazole 1% 1 appl topical BID 12 weeks famotidine 20 mg PO BEDTIME PRN 90 days lisinopril 5 mg PO DAILY 90 days meloxicam 15 mg PO DAILY methocarbamol 1,500 mg (2 x 750 mg) PO Q8H PRN polyethylene glycol 3350 (Miralax) 238 grams PO ONCE 1 day Tobacco use date assessed: 01/18/25 Dental Screening Dental Screen Date: 01/18/25 Did you have a dental visit in the last 12 months?: No Did you have a dental problem in the last 6 months where you did not have access to dental care?: No Was dental information given to patient?: No HPI elevated LFTs, HTN, hyperlipidemia, GERD HPI Details Patient comes in today for his follow up visit States that he currently feels okay He admits to unhealthy eating / poor compliance with his diet lately as his refrigerator broke down and he has been eating mostly canned foods and pasta over the past few weeks as a result He also recently received a cortisone injection into his foot from podiatry, which he states helped, and he was cautioned that this may affect his blood sugar He is now scheduled to go to physical therapy for his foot He also reports that he has been experiencing recurrent pain in his right knee that he thinks started after he injured his knee while playing football when he was younger States that orthopedics have previously considered a cortisone injection into his knee but he has not yet had the injection so far He is also having problems with his hearing and was advised that he will need his PCP to order a hearing test before they can proceed with evaluation of his hearing He denies any headaches or dizziness Denies any chest pains, no increased SOB No nausea/vomiting, no abdominal pain No change in bowel habits noted He had his follow up labs done last week - to discuss his results [facility] [place] Medical History Morbid obesity with BMI of 45.0-49.9, adult Morbid obesity with BMI of 40.0-44.9, adult Tinnitus Mixed hyperlipidemia GERD without esophagitis Elevated LFTs Vitamin D deficiency Impaired fasting glucose Benign essential hypertension Hearing loss, bilateral Smoker Surgical History Hx of colonoscopy History of knee surgery (~03/2013) Family History Father Epilepsy Heart attack High blood pressure Mother Diabetes Stroke Social History Housing: Apartment Alcohol intake: current Alcohol intake frequency: holidays/special occasions only Patient Tobacco Use Status: Current everyday Tobacco user Cigarettes Per Day: 10 e-Cigarette/Vaping Use: Never Used Second Hand Smoke Exposure: Yes service: No Current occupational status: unemployed Current occupational exposures/hazards: No Cognitive needs: No Hearing needs: Yes Vision needs: Yes (glasses) Questionnaire PHQ-9 Over the last 2 weeks, how often have you been bothered by any of the following problems? 1. Little interest or pleasure in doing things: not at all 2. Feeling down, depressed, or hopeless: nearly every day 3. Trouble falling or staying asleep, or sleeping too much: nearly every day 4. Feeling tired or having little energy: nearly every day 5. Poor appetite or overeating: nearly every day 6. Feeling bad about yourself - or that you are a failure or have let yourself or your family down: not at all 7. Trouble concentrating on things, such as reading the newspaper or watching television: nearly every day 8. Moving or speaking so slowly that other people could have noticed. Or the opposite - being so fidgety or restless that you have been moving around a lot more than usual: not at all 9. Thoughts that you would be better off or of hurting yourself in some way: not at all Total score: 15 Depression Screening Interpretation: Positive Depression Screening Follow-up: Follow-up Visit Requested Depression Screening Done: Yes [id number] - PHQ-9 Billing: Yes Source: Developed by Drs. Jersey Tellez, Lis Andrew, Wm Zhang and colleagues, with an educational viktor from [employer]. Thrive Questionnaire Date Thrive assessed: 01/18/25 I am a: Patient What is your living situation today?: I have a steady place to live Within the past 12 months, did the food you bought not last and you didn't have the money to get more?: Sometimes True Within the past 12 months, did you worry whether your food would run out before you got money to buy more?: Sometimes True Do you have trouble paying for medicines?: Yes Do you have trouble getting transportation to medical appointments?: Yes Do you have trouble paying your heating and electricity bill?: Yes Do you have trouble taking care of your child, family member or friend?: No Do you have trouble with day-to-day activities such as bathing, preparing meals, shopping, managing finances, etc.?: Yes Are you currently unemployed and looking for a job?: No Are you interested in more education?: No Please select the resources that you would like help with: None Currently or been in a relationship where the following occur: No concerns reported THRIVE Score: 4 AUDIT C Alcohol Use Questionnaire (AUDIT-C) 1. How often do you have a drink containing alcohol?: 2-4 times a month 2. How many drinks containing alcohol do you have on a typical day when you are drinking?: 1 or 2 3. How often do you have six or more drinks on one occasion?: Monthly Total Score: 4 Score Reviewed/Action Taken: Yes SANDEEP-7 AMB Questionnaire SANDEEP-7 Date SANDEEP - 7 assessed: 01/18/25 Feeling nervous, anxious, or on edge: 0 = Not at all Not being able to stop or control worryin = Not at all Worrying too much about different things: 2 = More than half the days Trouble relaxin = Nearly every day Being so restless that it is hard to sit still: 3 = Nearly every day Becoming easily annoyed or irritable: 0 = Not at all Feeling afraid as if something awful might happen: 0 = Not at all Total SANDEEP-7 score (0-4 normal; 5-9 mild; 10-14 moderate; 15-21 severe): 8 Source: Developed by Drs. Jersey Tellez, Lis Andrew, Wm Zhang and colleagues, with an educational viktor from [employer]. Review of Systems Const Denies chills, Denies fatigue, Denies fever(s) and Denies headache(s) ENT Denies dysphagia, Denies dizziness, Denies otalgia, Denies headache(s), Denies neck pain, Denies odynophagia and Denies sore throat Card Denies chest pain, Denies palpitations and Denies dyspnea Resp Denies chest congestion, Denies cough and Denies dyspnea GI Denies abdominal pain, Denies constipation, Denies dysphagia, Denies heartburn, Denies diarrhea, Denies nausea, Denies odynophagia and Denies vomiting Denies difficulty urinating, Denies dysuria, Denies nocturia and Denies urinary frequency Musc Denies back pain, Reports arthralgias (in the right knee and right foot) and Denies neck pain Skin/Breast Denies rash Neuro Denies dizziness and Denies headache(s) Endo Denies fatigue and Denies palpitations Physical exam (Primary Care) Vital Signs: Last Vital Signs Pulse 78 01/18/25 16:55 BP 136/80 01/18/25 16:55 Pulse Ox 97 01/18/25 16:55 Oxygen Delivery Method Room Air 01/18/25 16:55 BMI result Body Mass Index 47.6 Tobacco/Smoking Status: Tobacco use Status Tobacco use date assessed 01/18/25 01/18/25 16:58 Patient Tobacco Use Status Current everyday Tobacco 01/18/25 16:58 e-Cigarette/Vaping Use Never Used 01/18/25 16:58 PHQ-9: PHQ-9 Score PHQ-9: Total score 15 01/18/25 18:28 Depression Screening Interpretation: Positive Depression Screening Follow-up: Follow-up Visit Requested Thrive Assessment: Date of Thrive Assessment Date Thrive assessed 01/18/25 01/18/25 16:58 Currently or been in a relationship where the following occur: No concerns reported Const General: no acute distress and alert HENMT Ears: TM's normal bilaterally and EAC's normal Throat: Yes posterior oropharynx normal and Yes tonsils normal (no TP congestion) Neck Neck: Yes supple and No lymphadenopathy Thyroid: Thyroid normal Resp Auscultation: clear to auscultation bilaterally, no rales and no wheezes Cardio Rate: regular rate Rhythm: regular rhythm Heart sounds: no murmurs GI Palpation (GI): Soft to palpation and nontender Auscultation: normal bowel sounds General: Yes no CVA tenderness Back/Spine/Pelvis Back: no CVA tenderness Thoracic/Lumbar Spine: No lumbar spinal tenderness Skin Rashes: no rashes Extrem General: Yes no clubbing, cyanosis or edema Right lower extremity: knee Details: tenderness; no swelling and foot Details: tenderness Location: of the medial foot Location: in the mid-section Results Reviewed Results Reviewed: Laboratory Tests 01/12/25 13:58 WBC 5.9 Hgb 15.5 Hct 45.3 Plt Count 207 Sodium 138 Potassium 4.4 Creatinine 0.93 Estimated GFR > 60 Fasting Glucose 126 H Calcium 9.3 AST 40 H ALT 59 H Triglycerides 158 H Cholesterol 189 LDL Cholesterol, Calc 105 H HDL Cholesterol 53 25-OH Vitamin D Total 15.1 L TSH 1.09 Hepatitis A IgM Ab Nonreactive Hep Bs Antigen Negative Hep Bs Antibody NONREACTIVE Hep B Core Total Ab Nonreactive Hepatitis C Ab (EIA) Nonreactive Coding Level of Care Code Est Pt Level 4 (15441) Diagnoses Mixed hyperlipidemia E78.2 Benign essential hypertension I10 Impaired fasting glucose R73.01 Elevated LFTs R79.89 Vitamin D deficiency E55.9 GERD without esophagitis K21.9 Right knee pain, unspecified chronicity M25.561 Chronicity: unspecified Right foot pain M79.671 Hearing loss, unspecified hearing loss type, unspecified laterality H91.90 Hearing loss type: unspecified Laterality: unspecified laterality Smoker F17.200 Morbid obesity with BMI of 45.0-49.9, adult E66.01; Z68.42 Additional Codes PHQ-9 - 18464 - PHQ-9 Billing: Yes ([id number]) Assessment & Plan Assessment & Plan (1) Mixed hyperlipidemia: Code(s): E78.2 - Mixed hyperlipidemia Category: Medical Plan: Results of his labs done last week reviewed and discussed with patient Reinforced low cholesterol diet Will recheck his labs and fasting lipids in 4 months for follow up (2) Benign essential hypertension: Code(s): I10 - Essential (primary) hypertension Category: Medical Plan: Reinforced low sodium diet - goal is systolic BP of at least 130 mm or less Continue Lisinopril 5 mg QD Patient is again reminded to continue monitoring his blood pressure regularly (3) Impaired fasting glucose: Code(s): R73.01 - Impaired fasting glucose Category: Medical Plan: His HgbA1c was at 6.5% when last checked a few months ago (was previously at 6.4% earlier this year and this was significantly higher than his numbers last year in 2023, which were 5.9% and 5.7%) Have cautioned patient again that his HgbA1c of 6.5% classifies him as a diabetic and if this persists or gets even worse, he will need to be started on medication(s) for diabetes Reinforced low calorie/low carb diet; exercise as tolerated for now - he admits to poor compliance with his diet recently due to his refrigerator breaking down (see HPI) Will recheck his FBS and HgbA1c again in 4 months for follow up (4) Elevated LFTs: Code(s): R79.89 - Other specified abnormal findings of blood chemistry Category: Medical Plan: He is again cautioned that his LFTs are still elevated on his recent labs - this is likely related to his weight Have also cautioned patient against drinking too much alcohol or taking too many Tylenol-containing medications Will recheck his LFTs and labs in 4 months for follow up (5) Vitamin D deficiency: Code(s): E55.9 - Vitamin D deficiency, unspecified Category: Medical Plan: Continue Vitamin D3 2000 units QD (6) GERD without esophagitis: Code(s): K21.9 - Gastro-esophageal reflux disease without esophagitis Category: Medical Plan: Reinforced dietary restrictions Continue Famotidine 20 mg Q HS PRN (7) Right knee pain: Code(s): M25.561 - Pain in right knee Category: Medical Qualifiers: Chronicity: unspecified Qualified Code(s): M25.561 - Pain in right knee Plan: X-rays of the right knee done back in May 2024 came out normal He was referred to and is now following up with orthopedics for his right knee issues (8) Right foot pain: Code(s): M79.671 - Pain in right foot Category: Medical Plan: Follow up with podiatry as scheduled He has been diagnosed with plantar fasciitis and is now going to physical therapy for his foot (9) Hearing impairment: Code(s): H91.90 - Unspecified hearing loss, unspecified ear Category: Medical Qualifiers: Hearing loss type: unspecified Laterality: unspecified laterality Qualified Code(s): H91.90 - Unspecified hearing loss, unspecified ear Plan: Per request, will refer patient for hearing evaluation (10) Smoker: Code(s): F17.200 - Nicotine dependence, unspecified, uncomplicated Category: Social Hx Plan: Patient is counseled again on complete smoking cessation (11) Morbid obesity with BMI of 45.0-49.9, adult: Code(s): E66.01 - Morbid (severe) obesity due to excess calories; Z68.42 - Body mass index [BMI] 45.0-49.9, adult Category: Medical Plan: Reinforced diet/weight loss; exercise is somewhat difficult due to patient's current orthopedic issues Plan Follow up in 4 months Orders: Orders Lipid Panel 4 Months E78.00 - Pure hypercholesterolemia, unspecified Comprehensive [place]. Panel Fast 4 Months E78.00 - Pure hypercholesterolemia, unspecified TSH reflex Free T4 4 Months E78.00 - Pure hypercholesterolemia, unspecified UA CC w/rflx Micro + Cult 4 Months R30.0 - Dysuria Hemoglobin A1c 4 Months E11.9 - Type 2 diabetes mellitus without complications Complete Blood Count Auto Diff 4 Months D64.9 - Anemia, unspecified Vitamin D 25-OH Total 4 Months E55.9 - Vitamin D deficiency, unspecified Referrals Speech and Hearing Referral H91.90 - Unspecified hearing loss, unspecified ear
== END 2025-01-18 17:48 | disposition home or self-care (01) ==
LOC: HO.HMCH 16:10
PROVIDERS: PCP Internal Medicine; Visit Provider Internal Medicine
DX: E78.2 Mixed hyperlipidemia (principal); I10 Essential (primary) hypertension; E66.01 Morbid (severe) obesity due to excess calories; Z68.42 Body mass index [BMI] 45.0-49.9, adult; R73.01 Impaired fasting glucose; R79.89 Other specified abnormal findings of blood chemistry; E55.9 Vitamin D deficiency, unspecified; K21.9 Gastro-esophageal reflux disease without esophagitis; M25.561 Pain in right knee; M79.671 Pain in right foot; F17.200 Nicotine dependence, unspecified, uncomplicated; H91.90 Unspecified hearing loss, unspecified ear

== ENCOUNTER → 2025-01-18 16:09 | Outpatient (BNVA) | payer OTHER, SELFPAY | PROVIDERS: PCP Internal Medicine; Visit Provider Internal Medicine | DX: I10 Essential (primary) hypertension (principal); K21.9 Gastro-esophageal reflux disease without esophagitis; M25.561 Pain in right knee; E78.2 Mixed hyperlipidemia; R73.01 Impaired fasting glucose; R79.89 Other specified abnormal findings of blood chemistry; E55.9 Vitamin D deficiency, unspecified; M79.671 Pain in right foot; H91.90 Unspecified hearing loss, unspecified ear; E66.01 Morbid (severe) obesity due to excess calories; F17.210 Nicotine dependence, cigarettes, uncomplicated; Z68.42 Body mass index [BMI] 45.0-49.9, adult | CPT/HCPCS: 96127; 99212 ==

== ENCOUNTER 2025-01-26 13:08 | Outpatient (AMB) | payer OTHER, SELFPAY ==
[2025-01-26 13:35] VITALS: BMI 47.6
--- NOTE | 2025-01-26 13:35 | A.OFFVIS_ITS ---
Vital Signs 01/26/25 13:35 Height 5 ft 8 in Weight 313 lb BMI 47.6 Intake Visit Reasons: fu rt ankle/heal pain Intake Note: Gray is a 49 year old male who presents to the office today for a follow up for Right ankle/heel pain. At previous appointment patient received a cortisone injection to the right heel. Continue with home stretching and range of motion exercises including calf-stretches, frozen water bottle therapy, band-therapy. Patient to start physical therapy and continue to use night splint. Patient reports he has been attending PT and the injection has provided slight relief for his symptoms however he is still experiencing pain at this time. Allergies No Known Allergies (No Known Allergies*) Allergy (Verified 01/26/25 13:36) HPI HPI fu rt ankle/heal pain: Details: The patient is a 49-year-old male past medical history of diabetes mellitus type 2, hypertension, returns for chronic right heel and ankle pain. He started physical therapy. He notes improvement in his pain overall down to a 4/10 after the last steroid injection. History: He reports a history of right ankle sprain from March 1999, which has resulted in persistent pain and instability despite physical therapy. The pain level is typically 5/10, increasing to 10/10 with prolonged activity. The heel pain began in May following a fall, described as constant and worsening with weight-bearing activities. The pain is severe in the morning and after inactivity, necessitating the occasional use of a cane to aid in ambulation. He has not attempted any treatment thus far. The patient has diabetes with an A1c of 6.5, currently managed through lifestyle changes. Recent inactivity due to pain has led to weight gain despite previous efforts to manage weight and cholesterol. Surgical History: - ACL surgery on the left knee Social History: - Smokes approximately one pack of cigarettes per day - Formerly active, now limited in mobility due to pain, impacting daily activities and employment [facility] Medical History Morbid obesity with BMI of 45.0-49.9, adult Morbid obesity with BMI of 40.0-44.9, adult Tinnitus Mixed hyperlipidemia GERD without esophagitis Elevated LFTs Vitamin D deficiency Impaired fasting glucose Benign essential hypertension Hearing loss, bilateral Smoker Surgical History Hx of colonoscopy History of knee surgery (~03/2013) Family History Father Epilepsy Heart attack High blood pressure Mother Diabetes Stroke Social History Housing: Apartment Alcohol intake: current Alcohol intake frequency: holidays/special occasions only Patient Tobacco Use Status: Current everyday Tobacco user Cigarettes Per Day: 10 e-Cigarette/Vaping Use: Never Used Second Hand Smoke Exposure: Yes service: No Current occupational status: unemployed Current occupational exposures/hazards: No Cognitive needs: No Hearing needs: Yes Vision needs: Yes (glasses) Review of Systems Const All systems reviewed & are unremarkable except as noted in HPI and below Physical Exam Vital Signs: BMI result Body Mass Index 47.6 Extrem Other: *Bilateral Lower Extremity Focused Exam Vascular: DP/PT 2/4, CFT less than 3 seconds all digits, temperature gradient warm to cool. Pedal hair present to the dorsal aspect. Derm: Annular scaling plantar feet bilaterally. No open wounds or lacerations or erythema or clinical signs of infection. Neuro: Protective sensation grossly intact to bilateral lower extremities. MSK: Moderate tenderness on palpation along the plantar medial calcaneal tubercle right foot. No pain along the posterior aspect of the heel or Achilles tendon. Right lower extremity Ankle dorsiflexion 0 degrees on knee extension, 3-4 degrees on knee flexion. No pain on palpation along the right lateral ankle, ankle inversion to eversion 2.5:1. High arch cavus feet type bilaterally, semi reducible. Assessment & Plan Assessment & Plan (1) Plantar fasciitis of right foot: Comment: Status post cortisone injection 12/05/2024 Code(s): M72.2 - Plantar fascial fibromatosis Category: Medical Plan: * Previously reviewed right foot and leg x-rays with the patient. * Discussed etiology of the patient's foot pain. Differential diagnosis includes plantar fasciitis, neuritis, tendinitis. * Patient educated on the nature and etiology of plantar fasciitis, which involves inflammation and microtearing of the plantar fascia due to repetitive stress and overuse. * The patient was counseled on conservative management of plantar fasciitis, including daily stretching exercises targeting the plantar fascia and Achilles tendon, use of supportive and properly fitting footwear, and consideration of custom or prefabricated orthotics to improve foot biomechanics. * Previously was administered a cortisone injection to the right heel. * Instructed the patient on home stretching and range of motion exercises including calf-stretches, frozen water bottle therapy, band-therapy. A handout was dispensed. * Continue physical therapy * Continue use of night splint * Follow up in 3-4 weeks for possible repeat injection (2) Right ankle instability: Code(s): M25.371 - Other instability, right ankle Category: Medical Plan: * Discussed that it may require an MRI in the future. (3) Cavus deformity of both feet: Code(s): Q66.71 - Congenital pes cavus, right foot; Q66.72 - Congenital pes cavus, left foot Category: Medical Plan: * Educated the patient on his foot type. Explained that his high arch foot type (Cavus feet) can lead to altered weight distribution, resulting in increased pressure on the heel and lateral ankle. Patients may experience symptoms such as pain, callus formation, tendinitis, instability, and lateral ankle sprains. (4) Tinea pedis: Code(s): B35.3 - Tinea pedis Category: Medical Qualifiers: Laterality: bilateral Qualified Code(s): B35.3 - Tinea pedis Plan: * Re prescribed clotrimazole ointment Medications: New clotrimazole 1% 1 appl topical BID 4 weeks 30 grams 3RF tinea pedis B35.3 - Tinea pedis Refilled clotrimazole 1% 1 appl topical BID 12 weeks 60 mL 0RF Coding Level of Care Code Est Pt Level 3 (02177) Diagnoses Plantar fasciitis of right foot M72.2 Right ankle instability M25.371 Cavus deformity of both feet Q66.71; Q66.72 Tinea pedis of both feet B35.3 Laterality: bilateral Time Spent (min) 25
== END 2025-01-26 14:15 | disposition home or self-care (01) ==
LOC: HO.HPODS 13:09
PROVIDERS: PCP Internal Medicine; Visit Provider Student in an Organized Health Care Education/Training Program
DX: M72.2 Plantar fascial fibromatosis (principal); M25.371 Other instability, right ankle; Q66.71 Congenital pes cavus, right foot; Q66.72 Congenital pes cavus, left foot; B35.3 Tinea pedis
CPT/HCPCS: 99213

== ENCOUNTER → 2025-01-26 13:08 | Outpatient (BNVA) | payer OTHER, SELFPAY | PROVIDERS: PCP Internal Medicine; Visit Provider Student in an Organized Health Care Education/Training Program | DX: M72.2 Plantar fascial fibromatosis (principal); M25.371 Other instability, right ankle; Q66.71 Congenital pes cavus, right foot; Q66.72 Congenital pes cavus, left foot; B35.3 Tinea pedis | CPT/HCPCS: 99212 ==

== ENCOUNTER 2025-02-17 11:31 | Outpatient (REF) | payer OTHER, SELFPAY ==
--- NOTE | ~2025-02-17 | XR_ITS ---
EXAMINATION: XR CHEST CLINICAL INFORMATION: J98.8 - Other specified respiratory disorders COMPARISON: May 13, 2024 CT TECHNIQUE: 2 views of the chest were obtained. FINDINGS: Thin linear density in the right lung base likely represents atelectasis. Lungs are clear otherwise. Heart size is within normal limits. There is no pneumothorax. Bony thorax is unremarkable. XR/XR chest 2V IMPRESSION: Minimal right basilar atelectasis. Electronically signed by: Kolby Clark MD 02/17/2025 11:54 AM [facility]
== END 2025-02-17 11:32 | disposition home or self-care (01) ==
LOC: HO.XRAY 11:31
PROVIDERS: PCP Internal Medicine; Visit Provider Internal Medicine
DX: J98.8 Other specified respiratory disorders (principal)
CPT/HCPCS: 71046

== ENCOUNTER → 2025-02-17 11:37 | Outpatient (BNV) | payer OTHER, SELFPAY | PROVIDERS: PCP Internal Medicine; Visit Provider Radiology Diagnostic Radiology | DX: J98.8 Other specified respiratory disorders (principal) | CPT/HCPCS: 71046 ==

== ENCOUNTER 2025-02-20 12:30 | Outpatient (AMB) | payer OTHER, SELFPAY ==
[2025-02-20 13:09] VITALS: BMI 47.6
--- NOTE | 2025-02-20 13:09 | A.OFFVIS_ITS ---
Vital Signs 02/20/25 13:09 Height 5 ft 8 in Weight 313 lb BMI 47.6 Intake Visit Reasons: F/U rt ankle/heal pain Intake Note: Gray is a 49 year old male who presents today for a follow up on his right ankle and heel pain. At his last visit he was advised to perform daily stretching exercises, use of supportive and properly fitting footwear, Continue PT and utilizing the night splints. Patient reports he is still experiencing pain in his right heel and ankle. he is still attending PT at this time and does 2 sessions a week. Allergies No Known Allergies (No Known Allergies*) Allergy (Verified 02/20/25 13:18) HPI HPI F/U rt ankle/heal pain: Details: The patient is a 49-year-old male past medical history of diabetes mellitus type 2, hypertension, returns for chronic right heel pain. He started physical therapy. He notes improvement in his pain overall however it is starting to worsened. He has plans to renovate his hallux in March and will like to hold off on an injection until then. History: He reports a history of right ankle sprain from March 1999, which has resulted in persistent pain and instability despite physical therapy. The pain level is typically 5/10, increasing to 10/10 with prolonged activity. The heel pain began in May following a fall, described as constant and worsening with weight-bearing activities. The pain is severe in the morning and after inactivity, necessitating the occasional use of a cane to aid in ambulation. He has not attempted any treatment thus far. The patient has diabetes with an A1c of 6.5, currently managed through lifestyle changes. Recent inactivity due to pain has led to weight gain despite previous efforts to manage weight and cholesterol. Surgical History: - ACL surgery on the left knee Social History: - Smokes approximately one pack of cigarettes per day - Formerly active, now limited in mobility due to pain, impacting daily activities and employment [facility] Medical History Morbid obesity with BMI of 45.0-49.9, adult Morbid obesity with BMI of 40.0-44.9, adult Tinnitus Mixed hyperlipidemia GERD without esophagitis Elevated LFTs Vitamin D deficiency Impaired fasting glucose Benign essential hypertension Hearing loss, bilateral Smoker Surgical History Hx of colonoscopy History of knee surgery (~03/2013) Family History Father Epilepsy Heart attack High blood pressure Mother Diabetes Stroke Social History Housing: Apartment Alcohol intake: current Alcohol intake frequency: holidays/special occasions only Patient Tobacco Use Status: Current everyday Tobacco user Cigarettes Per Day: 10 e-Cigarette/Vaping Use: Never Used Second Hand Smoke Exposure: Yes service: No Current occupational status: unemployed Current occupational exposures/hazards: No Cognitive needs: No Hearing needs: Yes Vision needs: Yes (glasses) Review of Systems Const All systems reviewed & are unremarkable except as noted in HPI and below Physical Exam Vital Signs: BMI result Body Mass Index 47.6 Extrem Other: *Bilateral Lower Extremity Focused Exam Vascular: DP/PT 2/4, CFT less than 3 seconds all digits, temperature gradient warm to cool. Pedal hair present to the dorsal aspect. Derm: Annular scaling plantar feet bilaterally, improving. No open wounds or lacerations or erythema or clinical signs of infection. Thickened elongated dystrophic discolored toenails x 10 with subungual debris. Neuro: Protective sensation grossly intact to bilateral lower extremities. MSK: Mild tenderness on palpation along the plantar medial calcaneal tubercle right foot. No pain along the posterior aspect of the heel or Achilles tendon. Right lower extremity Ankle dorsiflexion 0 degrees on knee extension, 3-4 degrees on knee flexion. Left ankle 5 degrees dorsiflexion. No pain on palpation along the right lateral ankle, ankle inversion to eversion 2.5:1. High arch cavus feet type bilaterally, semi reducible. Office Procedures AMB Debridement/Avulsion Podia Details: Procedure: Nail debridement Location: 10 nails, bilateral feet Anesthesia: N/A Description: The affected toenails were cleansed with an antiseptic solution. Using sterile nail nippers and a rotary latonya, dystrophic and mycotic nail material was carefully debrided and reduced in thickness. Care was taken to avoid trauma to the surrounding skin and nail bed. All debris was removed as tolerated. The area was inspected for signs of infection or ulceration. Patient tolerated the procedure well without complications. Tolerance: Patient tolerated procedure well, no immediate complications. The patient complains he is unable to provide self-care due to as poly arthritis and gait impairment, and is at increased risk for complications due to a new diagnosis of diabetes mellitus type 2 such as ulceration, infection, and difficulty with self-care. Debridement of elongated toenails is medically necessary to prevent development of pressure-related lesions, reduce risk of secondary infection, and maintain foot health in high-risk comorbidities. [id number] of Nail 6+ Procedure code (CPT) selection complete Assessment & Plan Assessment & Plan (1) Plantar fasciitis of right foot: Comment: Status post cortisone injection 12/05/2024 Code(s): M72.2 - Plantar fascial fibromatosis Category: Medical Plan: * Previously reviewed right foot and leg x-rays with the patient. * Discussed etiology of the patient's foot pain. Differential diagnosis includes plantar fasciitis, neuritis, tendinitis. * Patient educated on the nature and etiology of plantar fasciitis, which involves inflammation and microtearing of the plantar fascia due to repetitive stress and overuse. * The patient was counseled on conservative management of plantar fasciitis, including daily stretching exercises targeting the plantar fascia and Achilles tendon, use of supportive and properly fitting footwear, and consideration of custom or prefabricated orthotics to improve foot biomechanics. * Previously was administered a cortisone injection to the right heel. * Continue home stretching and range of motion exercises including calf-stret ches, frozen water bottle therapy, band-therapy. * Continue physical therapy * Continue use of night splint * Follow up in 3-4 weeks for repeat right foot injection (2) Right ankle instability: Code(s): M25.371 - Other instability, right ankle Category: Medical Plan: * Discussed that it may require an MRI in the future. (3) Cavus deformity of both feet: Code(s): Q66.71 - Congenital pes cavus, right foot; Q66.72 - Congenital pes cavus, left foot Category: Medical Plan: * Educated the patient on his foot type. Explained that his high arch foot type (Cavus feet) can lead to altered weight distribution, resulting in increased pressure on the heel and lateral ankle. Patients may experience symptoms such as pain, callus formation, tendinitis, instability, and lateral ankle sprains. (4) Tinea pedis: Code(s): B35.3 - Tinea pedis Category: Medical Qualifiers: Laterality: bilateral Qualified Code(s): B35.3 - Tinea pedis Plan: * Continue clotrimazole ointment (5) Onychomycosis of toenail: Code(s): B35.1 - Tinea unguium Category: Medical Plan: * debrided elongated nails x10 using a sterile nail nipper. (6) Type 2 diabetes mellitus: Code(s): E11.9 - Type 2 diabetes mellitus without complications Category: Medical Qualifiers: Diabetes mellitus intermediate insulin use: without extermination inspector use Diabetes mellitus complication status: with skin complications Diabetes mellitus complication detail: with other skin complication Qualified Code(s): E11.628 - Type 2 diabetes mellitus with other skin complications Plan: * Laboratory Tests 08/31/24 15:34 Hemoglobin A1c % 6.5 H * currently on diet control with primary Orders: Orders AMB Debridement/Avulsion Podiatry Today B35.1 - Tinea unguium Coding Level of Care Code New Pt Level 4 (81923) Diagnoses Plantar fasciitis of right foot M72.2 Right ankle instability M25.371 Cavus deformity of both feet Q66.71; Q66.72 Tinea pedis of both feet B35.3 Laterality: bilateral Onychomycosis of toenail B35.1 Type 2 diabetes mellitus with other skin complication, without long-term current use of insulin E11.628 Diabetes mellitus extermination inspector insulin use: without intermediate use Diabetes mellitus complication status: with skin complications Diabetes mellitus complication detail: with other skin complication CPT Codes Skin Debridement - CPT: 42610-Bkgjjlqxhli of Nail 6+ ([id number]) Time Spent (min) 15
== END 2025-02-20 13:49 | disposition home or self-care (01) ==
LOC: HO.HPODS 12:31
PROVIDERS: PCP Internal Medicine; Visit Provider Student in an Organized Health Care Education/Training Program
DX: M72.2 Plantar fascial fibromatosis (principal); M25.371 Other instability, right ankle; Q66.71 Congenital pes cavus, right foot; Q66.72 Congenital pes cavus, left foot; B35.3 Tinea pedis; E11.628 Type 2 diabetes mellitus with other skin complications; B35.1 Tinea unguium
CPT/HCPCS: 11721; 99214

== ENCOUNTER → 2025-02-20 12:30 | Outpatient (BNVA) | payer OTHER, SELFPAY | PROVIDERS: PCP Internal Medicine; Visit Provider Student in an Organized Health Care Education/Training Program | DX: E11.628 Type 2 diabetes mellitus with other skin complications (principal); B35.1 Tinea unguium; B35.3 Tinea pedis; M25.371 Other instability, right ankle; M72.2 Plantar fascial fibromatosis; Q66.71 Congenital pes cavus, right foot; Q66.72 Congenital pes cavus, left foot | CPT/HCPCS: 11721; 99212 ==

== ENCOUNTER 2025-02-28 13:07 | Outpatient (AMB) | payer OTHER, SELFPAY ==
--- NOTE | 2025-02-28 13:39 | MHC.OFFVIS ---
Intake Visit Reasons: OV- LT knee pain Intake Note: Gray is a 49 year old male who presents today for a follow up of his left knee pain. Patient reports that he is interested in getting an injection for his left knee today. He is noticing that his pain is very bad and wants to try the injection and see if it will relieve some of his pain. Allergies No Known Allergies (No Known Allergies*) Allergy (Verified 02/28/25 13:47) HPI HPI OV- LT knee pain: Details: The patient is a 49-year-old male who presents to the office today for chronic left knee pain. His last appointment on 12/06/2024 I recommended the patient attend physical therapy in which she has been doing so. He does report some improvement with physical therapy but also has seen a slight increase pain. At his last appointment we discussed cortisone injection in which the patient deferred at that time but is looking to proceed with this while the office today. PFSH Medical History Morbid obesity with BMI of 45.0-49.9, adult Morbid obesity with BMI of 40.0-44.9, adult Tinnitus Mixed hyperlipidemia GERD without esophagitis Elevated LFTs Vitamin D deficiency Impaired fasting glucose Benign essential hypertension Hearing loss, bilateral Smoker Surgical History Hx of colonoscopy History of knee surgery (~03/2013) Family History Father Epilepsy Heart attack High blood pressure Mother Diabetes Stroke Social History Housing: Apartment Alcohol intake: current Alcohol intake frequency: holidays/special occasions only Patient Tobacco Use Status: Current everyday Tobacco user Cigarettes Per Day: 10 e-Cigarette/Vaping Use: Never Used Second Hand Smoke Exposure: Yes service: No Current occupational status: unemployed Current occupational exposures/hazards: No Cognitive needs: No Hearing needs: Yes Vision needs: Yes (glasses) Review of Systems Const All systems reviewed & are unremarkable except as noted in HPI and below Physical Exam Const General: cooperative, healthy appearing and no acute distress Resp Effort & Inspection: normal respiratory effort and able to speak in complete sentences Extrem Other: Left knee prior ACL incision site scar located along the tibial tubercle. Able to perform range of motion 0-100 degrees. Slight tenderness to palpation both medial and lateral joint lines. Some laxity with anterior drawer. NVI. Psych Appearance: grossly normal Mental Status: mental status grossly normal Attitude: cooperative Office Procedures AMB Joint Injection/Aspiration Joint Injection/Aspiration Primary Site: Left Knee Prep: site was prepped using aseptic technique, ethochloride spray was applied and injection warnings given Injected: 40 mg of, Decadron, with 3 mL of, 1% plain Lidocaine, 0.25% Bupivacaine and in the joint Approach Used: anterolateral Procedure: The patient tolerated the procedure well, but had some pain with the injection and there was some relief with the local anesthesia Coding 29458 - Large joint Procedure code (CPT) selection complete Assessment & Plan Assessment & Plan (1) Osteoarthritis of left knee: Code(s): M17.12 - Unilateral primary osteoarthritis, left knee Category: Medical (2) History of reconstruction of anterior cruciate ligament tear: Code(s): Z98.890 - Other specified postprocedural states Category: Surgical Plan The patient was offered a cortisone injection in the left knee. The patient was explained the risks, benefits, and alternatives to receiving this injection. After receiving consent for the injection, the patient had the procedure done while in the office today. The patient tolerated the procedure well with no complications. The risks, benefits, and alternatives to a corticosteroid injection were discussed with the patient, including the potential benefits of decreased inflammation and pain, improved function, and diagnostic value. Risks were reviewed, including post-injection flare, skin or fat atrophy, transient facial flushing, temporary elevation in blood glucose, bruising, and rare but serious complications such as infection, tendon weakening or rupture, and cartilage damage with repeated injections. Procedure-related discomfort and possible vasovagal symptoms were also explained. Alternatives were reviewed, including NSAIDs, physical therapy, activity modification, bracing, ice/heat, weight management, hyaluronic acid injections when appropriate, PRP or other orthobiologics, oral steroids, surgery depending on pathology, and observation. The patient verbalized understanding and elected to proceed. After receiving consent for the injection, the patient had the procedure done while in the office today. The patient tolerated the procedure well with no complications. Follow-up will be PRN, or sooner if needed Coding Level of Care Code Est Pt Level 3 (04619) Diagnoses Osteoarthritis of left knee M17.12 History of reconstruction of anterior cruciate ligament tear Z98.890 CPT Codes Coding - 50451 Large joint: 70290 - Large joint ([id number])
== END 2025-02-28 14:05 | disposition home or self-care (01) ==
LOC: HO.HOS 13:08
PROVIDERS: PCP Internal Medicine; Visit Provider Physician Assistant
DX: M17.12 Unilateral primary osteoarthritis, left knee (principal); Z98.890 Other specified postprocedural states
CPT/HCPCS: 20610; 99213

== ENCOUNTER → 2025-02-28 13:07 | Outpatient (BNVA) | payer OTHER, SELFPAY | PROVIDERS: PCP Internal Medicine; Visit Provider Physician Assistant | DX: M17.12 Unilateral primary osteoarthritis, left knee (principal); Z98.890 Other specified postprocedural states | CPT/HCPCS: 20610; 99212; J0665; J1100; J2003 ==